=== PATIENT | female | born 1985 | race Caucasian/White ===

== ENCOUNTER 2018-06-19 05:24 | Inpatient (IN) | payer MEDICAID, SELFPAY ==
[2018-06-19] VITALS (20 sets, daily range): BP systolic 88–108; BP diastolic 34–64; PULSE 67–96; RESP 14–18; TEMP 35.3–36.8; O2SAT 96–100; BMI 44.3
[2018-06-19] MEDS: Lactated Ringers 1,000 ML 999 ML IV (06:08)
[2018-06-19 06:27] LABS: Absolute Neutrophil Count 4.8 X10^3/uL (2.0-7.7); Basophil# 0.02 X10^3/uL; Basophil% 0.3 % (0-1); Eosinophil# 0.11 X10^3/uL; Eosinophils% 1.6 % (0-5); Hematocrit 33.9 % (37-47); Hemoglobin 11.2 g/dl (12.0-15.0); Lymphocyte % 24.1 % (19-41); Mean Corpuscular Hgb 29.9 pg (27.0-32.0); Mean Corpuscular Volume 90.4 fL (81-99); Mean Platelet Vol. 10.4 fl (6.2-12.0); Monocyte# 0.43 X10^3/uL; Monocyte% 6.1 % (0-10); Neutrophil # 4.79 X10^3/uL (2.7-7.7); Neutrophil % 67.8 % (47-70); Platelet Count 238 K/mm3 (150-450); RBC Distribution Width CV 13.6 % (11.6-14.6); RBC Distribution Width SD 43.4 fl (35.1-43.9); Red Blood Count 3.75 M/mm3 (4.2-5.4); White Blood Count 7.1 K/mm3 (4.4-11.0)
[2018-06-19 06:31] LABS: POSITIVE COUNT NO; POSITIVE DIFFERENTIAL NO; POSITIVE MORPHOLOGY NO
[2018-06-19] MEDS: Sodium Citrate/Citric Acid 30 ML UDC PO (07:06)
[2018-06-19] MEDS: Cefazolin 2 GM in 0.9% Normal Saline 100 ML IV (07:07)
[2018-06-19] MEDS: Lactated Ringers 1,000 ML 150 ML IV (07:07)
[2018-06-19] MEDS: Oxytocin 30 units/NS 500 ml 30 UNITS/500 ML IV.SOLN 167 UNITS IV (07:47)
--- NOTE | 2018-06-19 08:12 | PCM.OB.CSR ---
Delivery Classification: Scheduled Final THANG: 06/20/18 Final THANG Source: US <20 weeks Gestational age: 39 Weeks and 6 Days Indications for : Repeat Elective Description of Procedure: Assistance: Fazal YOUNG and Lisa Duarte MS3 The patient was taken to the operating room. She was prepped and draped in the dorsal supine position with a leftward tilt. A Pfannenstiel skin incision was made approximately 3 cm above the symphysis pubis and carried through to underlying layer fascia with the scalpel. The incision was made slightly above her previous incision due to erythema and some skin breakdown right under her pannus fold. I made the incision above this erythema in the excoriated skin. The fascia was incised incised in the midline and extended laterally with the Martinez scissors. The fascia was dissected off the rectus muscles with blunt and sharp dissection. The rectus muscles were in the midline and the peritoneum was entered bluntly. The peritoneal incision was stretched and the bladder blade was placed. The uterine incision was made in a low transverse fashion with the scalpel and extended superiorly and inferiorly with blunt dissection. The amniotic membranes were ruptured bluntly and clear amniotic fluid returned. The 's head was brought to the incision in the flexed position and delivered without difficulty. The remainder of the was delivered with gentle traction and fundal pressure in the standard fashion. The mouth and nares were bulb suctioned. The cord was clamped and cut as the was stimulated. Cord clamping was delayed. The infant was handed off to the waiting nursing staff. The placenta was delivered with fundal massage and gentle traction in the standard fashion. The uterus was exteriorized and cleared of all clots and debris. The cervix was dilated with a ring forcep. The uterine incision was closed with #1 Vicryl in a running locked fashion. A second layer of the same suture was used in an imbricating fashion. The incision was examined and was found to be hemostatic. The uterus was placed back into the peritoneal cavity and hemostasis was again confirmed. The rectus muscles were examined and any bleeding was Bovie cauterized. The parietal peritoneum and rectus muscles were closed en bloc with an 0 Vicryl running suture. The surgical teams outer gloves were then changed. The rectus fascia was examined and any bleeding was Bovie cauterized and the rectus fascia was closed with looped #1 PDS suture in a running standard fashion. The subcutaneous tissue was examining and any bleeding was Bovie cauterized. Subcutaneous tissue was closed with 2 rows of 3-0 Vicryl and the skin was closed in a subcuticular fashion by the DESIGNER with me present in the labor and delivery suite. I performed the remainder of the procedure with assistance. All sponge, lap, and needle counts were correct. The patient was taken to her room for recovery in a stable condition. Amniotic Membrane Rupture Type: Artificial Amniotic Fluid Description: Clear Placenta Disposition: [facility] Specimen(s) sent to pathology: none Drain: Obando to straight drain Fluids Replaced: 1200cc Cord Entanglement: None Cord Vessel Description: 3 Vessels Esitmated Blood Loss (ml): 800 Infant Gender: Male (1 minute): 8 (5 minute): 9 Delayed cord clamping: Yes Pre-op Antibiotic Given: Ancef 2 grams IV x1 - Admit VTE Documentation VTE Present on Admission: No VTE Mechan Device Prophylaxis: SCD's VTE Pharm Prophylaxis ordered?: Yes
--- NOTE | 2018-06-19 08:16 | OP.PCM_ITS ---
Delivery Classification: Scheduled Final THANG: 06/20/18 Final THANG Source: US <20 weeks Gestational age: 39 Weeks and 6 Days Indications for : Repeat Elective Description of Procedure: Assistance: Fazal YOUNG and Lisa Duarte MS3 The patient was taken to the operating room. She was prepped and draped in the dorsal supine position with a leftward tilt. A Pfannenstiel skin incision was made approximately 3 cm above the symphysis pubis and carried through to underlying layer fascia with the scalpel. The incision was made slightly above her previous incision due to erythema and some skin breakdown right under her pannus fold. I made the incision above this erythema in the excoriated skin. The fascia was incised incised in the midline and extended laterally with the Jayna torres scissors. The fascia was dissected off the rectus muscles with blunt and sharp dissection. The rectus muscles were in the midline and the peritoneum was entered bluntly. The peritoneal incision was stretched and the bladder blade was placed. The uterine incision was made in a low transverse fashion with the scalpel and extended superiorly and inferiorly with blunt dissection. The amniotic membranes were ruptured bluntly and clear amniotic fluid returned. The infant's head was brought to the incision in the flexed position and delivered without difficulty. The remainder of the was delivered with gentle traction and fundal pressure in the standard fashion. The mouth and nares were bulb suctioned. The cord was clamped and cut as the infant was stimulated. Cord c lamping was delayed. The was handed off to the waiting nursing staff. The placenta was delivered with fundal massage and gentle traction in the standard fashion. The uterus was exteriorized and cleared of all clots and debris. The cervix was dilated with a ring forcep. The uterine incision was closed with #1 Vicryl in a running locked fashion. A second layer of the same suture was used in an imbricating fashion. The incision was examined and was found to be hemostatic. The uterus was placed back into the peritoneal cavity and hemostasis was again confirmed. The rectus muscles were examined and any bleeding was Bovie cauterized. The parietal peritoneum and rectus muscles were closed en bloc with an 0 Vicryl running suture. The surgical teams outer gloves were then changed. The rectus fascia was examined and any bleeding was Bovie cauterized and the rectus fascia was closed with looped #1 PDS suture in a running standard fashion. The subcutaneous tissue was examining and any bleeding was Bovie cauterized. Subcutaneous tissue was closed with 2 rows of 3-0 Vicryl and the skin was closed in a subcuticular fashion by the SOCIAL MEDIA PROJECT MANAGER with me present in the labor and delivery suite. I performed the remainder of the procedure with assistance. All sponge, lap, and needle counts were correct. The patient was taken to her room for recovery in a stable condition. Amniotic Membrane Rupture Type: Artificial Amniotic Fluid Description: Clear Placenta Disposition: [facility] Specimen(s) sent to pathology: none Drain: Obando to straight drain Fluids Replaced: 1200cc Cord Entanglement: None Cord Vessel Description: 3 Vessels Esitmated Blood Loss (ml): 800 Infant Gender: Male (1 minute): 8 (5 minute): 9 Delayed cord clamping: Yes Pre-op Antibiotic Given: Ancef 2 grams IV x1 - Admit VTE Documentation VTE Present on Admission: No VTE Mechan Device Prophylaxis: SCD's VTE Pharm Prophylaxis ordered?: Yes
[2018-06-19] MEDS: Ketorolac 30 MG/ML Syringe IV ×3 (08:24→20:40)
[2018-06-19 10:11] LABS: Bedside Glucose 105 mg/dL (70-110)
[2018-06-19] MEDS: Lactated Ringers 1,000 ML 100 ML IV ×2 (10:11→19:25)
[2018-06-19] MEDS: Ondansetron 4 MG/2 ML Vial IV (10:34)
--- NOTE | 2018-06-19 19:29 | DCINST_ITS ---
Discharge Diet: No Restrictions Discharge Activity: Return to Normal Activity, May Not Drive - for 2 weeks, May not drive while taking narcotic pain medications., May Shower, May Take a Tub Bath - in 7 days. May resume sexual activity in: 4-6 weeks Lifting Restrictions: 20 pounds Additional Activity Instructions:: Nothing in the vagina for 4-6 weeks. You may return to work/school in 6 weeks. Call your doctor if your incision/area has: Continuous Slow Oozing, Sudden Increased Bleeding, Increased Pain/ Swelling, Increased Redness, Foul Smelling Discharge Call your doctor if you observe: Fever of 101 or Higher, Using more than one pad per hour - for 2 hours Suture Line Care: Avoid Pulling/Pushing, Avoid Pinching/Bending Cleanse incision/area with: Keep Dressing Clean & Dry Additional Instructions: If you experience any of the following, contact your healthcare provider. * Bleeding that soaks a pad every hour for 2 hours * Fever 100.4 or higher * Unrelieved incision or abdominal pain * Swelling, redness, discharge or bleeding from your incision or episiotomy site * Your incision begins to separate * Problems urinating (including inability to urinate or burning while urinating). * Visual changes * Severe headache * Flu-like symptoms * Pain or redness in one of both of your breasts * Pain, warmth, tenderness or swelling in your legs, especially the calf area * Frequent nausea and vomiting * Symptoms of depression or anxiety If you experience any of the following, call 911 or go to the nearest Emergency Room. * Chest pain * Problems breathing * Seizure activity * Partial or complete paralysis of a body part, slurred speech, weakness or drooping of the face, or a sudden inability to walk or hold your balance Allergies/Adverse Reactions: Allergies No Known Allergies Allergy (Verified 06/19/18 07:05) Medications to take at Discharge Vits [Prenatabs FA ] 1 tablet PO DAILY 06/13/18 Docusate Sodium [Colace] 100 mg PO BID PRN PRN #60 capsule 06/19/18 Ibuprofen [Motrin] 600 mg PO Q6H PRN #60 tablet 06/19/18 Oxycodone HCl/Acetaminophen [Percocet 5-325] 1 - 2 tablet PO Q8 PRN 7 Days #28 tablet 06/19/18 The following prescriptions were given: Docusate Sodium [Colace] 100 mg PO BID PRN PRN #60 capsule PRN Reason: Constipation Oxycodone HCl/Acetaminophen [Percocet 5-325] 1 - 2 tablet PO Q8 PRN 7 Days #28 tablet PRN Reason: Moderate-Severe pain Ibuprofen [Motrin] 600 mg PO Q6H PRN #60 tablet PRN Reason: Pain Follow-Up: Call to make an appointment with your doctor for an incision check in 1-2 weeks. You will also need a 6 week post- follow up appointment. Test results from this visit will be discussed in further detail at your follow- up appointment, if applicable. Please Follow Up With: Shanice Sellers MD - Call to make an appointment for an incision check in 1-2 [phone] When: You will need a post check in 6 weeks. Primary Care Physician: Care Physician,No Primary [Primary Care Provider] -
[2018-06-19] MEDS: Senna/Docusate Sodium 1 Tablet PO (22:52)
[2018-06-20] VITALS (9 sets, daily range): BP systolic 91–107; BP diastolic 33–53; PULSE 72–84; RESP 15–18; TEMP 36.1–36.6; O2SAT 95–98
[2018-06-20] MEDS: Lactated Ringers 1,000 ML 100 ML IV (01:28)
[2018-06-20] MEDS: Ketorolac 30 MG/ML Syringe IV ×4 (02:17→20:19)
[2018-06-20] MEDS: Enoxaparin 40 MG/0.4 ML Syringe SC (05:40)
[2018-06-20 06:45] LABS: Hematocrit 30.9 % (37-47); Mean Corp Hgb Conc 32.4 g/gl (32-36); Mean Corpuscular Hgb 29.6 pg (27.0-32.0); Mean Corpuscular Volume 91.4 fL (81-99); Mean Platelet Vol. 9.9 fl (6.2-12.0); Platelet Count 216 K/mm3 (150-450); RBC Distribution Width CV 13.9 % (11.6-14.6); RBC Distribution Width SD 45.4 fl (35.1-43.9); Red Blood Count 3.38 M/mm3 (4.2-5.4); White Blood Count 8.2 K/mm3 (4.4-11.0)
[2018-06-20 07:16] LABS: Scan Indicated on CBC? Y/N NO
[2018-06-20] MEDS: 0.9% Saline Lock 10 ML Syringe IV ×3 (08:01→20:20)
[2018-06-20] MEDS: Senna/Docusate Sodium 1 Tablet PO ×2 (08:02→20:19)
--- NOTE | 2018-06-20 12:22 | PCM.PN.OB ---
Subjective: Pain controlled - Physical Exam General: Alert, Oriented x3 Abdomen: Soft, Non Tender, Non-Distended - ff mid &below umb; inc - bandage c/d/i, stable old dried blood Extremities: No Calf Tenderness Vital Signs Temp Pulse Resp BP Pulse Ox 97.9 F 73 16 102/53 L 98 06/20/18 08:00 06/20/18 08:00 06/20/18 08:00 06/20/18 08:00 06/20/18 08:00 Oxygen Delivery Method Room Air Weight: 227 lb 1.218 oz Body Mass Index (BMI) 44.3 Intake and Output for Last 24 Hours 06/18/18 06/19/18 06/20/18 23:59 23:59 23:59 Intake Total 4910 / 4910 1534 / 1534 Output Total 775 / 775 1000 / 1000 Balance 4135 / 4135 534 / 534 Laboratory Tests Past 24 Hrs 06/20/18 06:30 WBC 8.2 RBC 3.38 L Hgb 10.0 L Hct 30.9 L MCV 91.4 MCH 29.6 MCHC 32.4 RDW 13.9 RDW Differential 45.4 H Plt Count 216 MPV 9.9 Medical Necessity - Tobacco Use Smoking Status: Never smoker Assessment/Plan POD#1 Routine care Heme - cbc reviewed ID - AF GI - ADAT
[2018-06-21 02:10] VITALS: BP 102/53; PULSE 75; RESP 18; TEMP 36.4; O2SAT 98
[2018-06-21] MEDS: 0.9% Saline Lock 10 ML Syringe IV (02:57)
[2018-06-21] MEDS: Ketorolac 30 MG/ML Syringe IV (02:57)
[2018-06-21] MEDS: Enoxaparin 40 MG/0.4 ML Syringe SC (06:12)
--- NOTE | 2018-06-21 08:06 | PCM.PN.OB ---
Subjective: Patient sitting up in bed, at this time. Patient reports no issues - desires discharge to home today. Denies issues with ambulation or urination. Patient reports that incisional pain is well controlled. Reports she is bonding well with baby. Objective: Nipples without cracks, blisters or erythema. Baby at breast with strong latch, sucking without difficulty. Abdomen NT x 4 quadrants, FF midline @ 2FB below umbilicus Incisional dressing dry and intact, no exudate noted on bandage +2/4 reflexes in LE, no calf tenderness to palpation, no edema noted Scant rubra lochia - Physical Exam General: Alert, Oriented x3, Cooperative HEENT: Atraumatic, Normocephalic Neck: Supple Lungs: Normal air movement Cardiovascular: Regular rate, No murmurs Abdomen: Soft, Non Tender, Passing Flatus Extremities: No edema, Capillary Refill Less than 3 Seconds Skin: No rashes, No breakdown Musculoskeletal: No Tenderness to Palpation of Joints or Extremities Neurological: Cranial nerves II-XII grossly intact Psych/Mental Status: Normal Affect, Appropriate, Alert and oriented to time, place, person, mood and affect Vital Signs Temp Pulse Resp BP Pulse Ox 97.6 F L 75 18 102/53 L 98 06/21/18 02:10 06/21/18 02:10 06/21/18 02:10 06/21/18 02:10 06/21/18 02:10 Oxygen Delivery Method Room Air Weight: 227 lb 1.218 oz Body Mass Index (BMI) 44.3 Intake and Output for Last 24 Hours 06/19/18 06/20/18 06/21/18 23:59 23:59 23:59 Intake Total 4910 / 4910 1534 / 1534 Output Total 775 / 775 1800 / 1800 Balance 4135 / 4135 -266 / -266 Medical Necessity - Tobacco Use Smoking Status: Never smoker Assessment/Plan 32 y/o s/p rpt LTCS, Normal Course, POD #2 P: 1) Discharge to home pending discharge 2) RTC at [facility] for Incision Check with Dr. Marlo HOFF as scheduled Magalys LOCKWOOD
[2018-06-21] MEDS: Senna/Docusate Sodium 1 Tablet PO (10:41)
--- NOTE | 2018-06-26 17:25 | NURSING ---
follow up call complete, denies needs or questions about discharge. incision wnl and her and baby are doing well. satisfied with care
== END 2018-06-21 12:35 | disposition home or self-care (01) | DRG 540 ==
PROVIDERS: Admitting Provider Obstetrics & Gynecology; Referring Provider Obstetrics & Gynecology; Visit Provider Obstetrics & Gynecology
PROC: 10D00Z1 Extraction of Products of Conception, Low, Open Approach (ICD-10-PCS; CPT 59514; principal; 2018-06-19 07:15)
DX: O34.211 Maternal care for low transverse scar from previous cesarean delivery (principal); Z3A.39 39 weeks gestation of pregnancy; Z37.0 Single live birth
CPT/HCPCS: 82962; 85025; 85027; 86850; 86900; 99218; J7120; A4216; G0378; J2405

== ENCOUNTER 2018-09-28 10:53 | Day surgery (SDC) | payer MEDICAID, SELFPAY ==
--- NOTE | 2018-09-26 17:48 | PCM.HP.BLA ---
History and Physical Date of Admission: 09/28/18 Pre-Op History and Physical- performed 09/21/18 HPI: The patient is a 33 year old female presenting for pre-operative visit. She is scheduled for laparoscopic IUD removal, possible hysteroscopy, Mirena IUD insertion, for malpositioned IUD on 09/28/18. Procedure discussed along with risks, benefits and complications. Other alternatives discussed for management. Consent form signed? Yes. PAST MEDICAL HISTORY Diagnosis Date ? Abnormal glandular Papanicolaou smear of cervix 06/02/2005 Abn. Pap smear (cervix) ? Encounter for insertion or removal of intrauterine contraceptive device 08/30/2008 Mirena, removed 2011 PAST SURGICAL HISTORY Procedure Laterality Date ? DELIVERY ONLY 2005 , low transverse ? DELIVERY ONLY 06/19/2018 RC/S, low transverse ? 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 Disp: Rfl: Xrryydiz-Qb-Hqz-Fe-FA ( VITAMIN) tab Take 1 tablet by mouth. Disp: Rfl: Current Facility-Administered Medications: levonorgestrel 20 mcg/24 hr (5 years) 1 Each intrauterine device (MIRENA) 1 Each INTRAUTERINE As Directed Shanice Sellers 1 Each at 08/14/18 1038 ALLERGIES: Patient has no known allergies. 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 Breast Cancer Mother ? Breast Cancer Maternal Grandmother ? Cancer Maternal Grandmother lung ? Coronary Artery Disease Maternal Grandmother ? Diabetes Maternal Grandmother ? Hypertension Maternal Grandmother ? Stroke Maternal Grandmother ? other (Dementia) Maternal Grandfather REVIEW OF SYMPTOMS: GENERAL: denies fevers or chills ENDOCRINOLOGY: has not been on steroids Cardiology : denies palpitations or chest pain Respiratory: denies SOB or cough Hematology: denies history of prolonged bleeding or easy bruising or VTE Allergy: Denies history of personal or family history of allergy to anesthesia PHYSICAL EXAMINATION: VITALS: Blood pressure 110/62, weight 214 lb (97.1 kg), currently . GENERAL: The patient is well nourished, well hydrated in no acute distress. , The patient is oriented to time, place, and person. NECK: Supple. No lynphadenopathy, normal thyroid, no thyromegaly. LUNGS: Clear to auscultation bilaterally. no wheezes, rhonchi or rales HEART: Regular rate and rhythm, Normal heart sounds and No murmurs or gallops IMPRESSION: malpositioned IUD, desires IUD for contraception PLAN: The risks/benefits/alternatives and personal involved for the planned Laparoscopic IUD removal, possible hysteroscopy, Mirena IUD insertion were reviewed with the patient. Her questions were answered to her satisfaction and she desires to proceed. Consent was signed. I reviewed with her postop instructions and expectations. I have reviewed and updated past medical and surgical history, medications and allergies Shanice Sellers M.D.
[2018-09-28] VITALS (7 sets, daily range): BP systolic 104–127; BP diastolic 64–88; PULSE 70–83; RESP 16–18; TEMP 36.2–36.9; O2SAT 93–100; BMI 41.3
[2018-09-28 11:18] LABS: Mean Corp Hgb Conc 32.6 g/gl (32-36); Mean Corpuscular Hgb 28.8 pg (27.0-32.0); Mean Corpuscular Volume 88.5 fL (81-99); Mean Platelet Vol. 9.9 fl (6.2-12.0); Platelet Count 261 K/mm3 (150-450); RBC Distribution Width CV 13.4 % (11.6-14.6); Red Blood Count 4.86 M/mm3 (4.2-5.4); Scan Indicated on CBC? Y/N NO; White Blood Count 7.4 K/mm3 (4.4-11.0)
[2018-09-28] MEDS: Celecoxib 200 MG Capsule PO (11:20)
[2018-09-28] MEDS: Acetaminophen 500 MG Tablet 1000 MG PO (11:20)
[2018-09-28 11:47] LABS: Internal QC Validated? YES +Cl - CLEAR BKGD; Pregnancy, Urine Negative Negative
--- NOTE | 2018-09-28 15:10 | PCM.DC.TUB ---
Discharge Diet: No Restrictions - Increase fluid intake for the next 48 hours. Discharge Activity: Return to Normal Activity, May Drive - when you are no longer taking pain/narcotic meds., May Shower, May Take a Tub Bath - in 7 days Additional Activity Instructions:: Ambulate often the next week after surgery. Nothing in the vagina for 5 days. Call your doctor if your incision/area has: Continuous Slow Oozing, Sudden Increased Bleeding, Increased Pain/ Swelling, Increased Redness, Foul Smelling Discharge Call your doctor if you observe: Fever of 101 or Higher Cleanse incision/area with: Soap & Water - they have skin glue, it can get wet. Leave the glue on 10-14 days Allergies/Adverse Reactions: Allergies No Known Allergies Allergy (Verified 09/28/18 11:14) Medications to take at Discharge Hydrocodone/Acetaminophen [Harrison 5-325 Tablet] 1 - 2 each PO Q8 PRN 3 Days #10 tablet 09/28/18 Ibuprofen [Motrin] 600 mg PO Q6H PRN #60 tablet 09/28/18 The following prescriptions were given: Hydrocodone/Acetaminophen [Harrison 5-325 Tablet] 1 - 2 each PO Q8 PRN 3 Days #10 tablet PRN Reason: Severe Pain (6-10/10) Ibuprofen [Motrin] 600 mg PO Q6H PRN #60 tablet PRN Reason: Pain Orders to be completed after discharge: ,Urine Time Frame: 09/28/18, Location: Laboratory Primary Care Physician: Care Physician,No Primary [Primary Care Provider] - Test Results: Test results from this visit will be discussed in further detail at your follow-up appointment, if applicable. Please Follow Up With: Shanice Sellers MD - [phone] When: 4-5 weeks or as needed
[2018-09-28] MEDS: Bupivacaine Mpf 0.5% 30 ML VIAL (15:15)
--- NOTE | 2018-09-28 15:41 | PCM.OPRPT ---
Report of Operation Date of Procedure: 09/28/18 Pre-Operative Diagnosis: malposition of mirena IUD, IUD insertion Post-Operative Diagnosis: same Surgery/Procedure Performed:: Laparoscopic removal of a Mirena IUD. Insertion of Mirena IUD under laparoscopic visualization Description of Surgical Findings:: Omental adhesion approximately 4 x 4 cm under the umbilicus, boggy uterus, normal tubes and ovaries, mirena sitting unattached in the posterior cul-de-sac station air traffic control specialist: None Type of Anesthesia:: General Special Medications: none Specimen's removed: None Drains: None Estimated Blood Loss (mL): 10 Fluids Replaced: 300cc lr Description of Procedure: The patient was taken to the operating room where she was prepped and draped in the dorsolithotomy position. A weighted speculum was placed in the vagina and the anterior lip of the cervix was grasped with a tenaculum. The Rehana uterine manipulator was placed and the remainder of the instruments were removed from the vagina. Attention was turned to the abdomen. All port sites were infiltrated with 0.5% Marcaine before skin incisions were made. A 5 mm intraumbilical incision was made. The anterior abdominal wall was tented up with 2 towel clamps while a 5 mm blade less trocar and sleeve were inserted using the opti-vision trocar.. Intraperitoneal placement was confirmed with the laparoscope. The pneumoperitoneum was created and the underlying abdominal contents were intact. The patient was placed in Trendelenburg. A left lower quadrant ports was placed under direct visualization lateral to the inferior epigastric vessels. The bowel was swept away and the above findings were noted. Mirena IUD was found sitting in the posterior cul-de-sac. It was grasped by the strings and brought out through 1 of the trocars. The uterus sounded to 9 cm, it was anteverted. While the scrub outpatient physical therapist assistant was holding the laparoscope, I placed the Mirena IUD in the usual sterile fashion. Insertion was without difficulty. The strings were trimmed to 2 cm at the cervix. The uterus was examined after the IUD insertion and was found to be intact. Because of the umbilical adhesions and the fact that suprapubic trocar seem to pass directly through them, a suprapubic 5 mm port was placed under direct visualization through her scar. I was able to visualize the omental adhesion and ensure there is no bowel trapped within it. There was not. The left lateral and umbilical trocars removed under direct visualization and the sites were hemostatic. The pneumoperitoneum was released and the suprapubic port was removed. The skin incisions were closed with Monocryl suture in a subcuticular fashion and skin glue. The vaginal instruments were removed and the vaginal sweep was completed by me. The procedure was performed by me with assistance other than as dictated above. All sponge and needle counts were correct and the patient was taken to the recovery room in stable condition. Grafts/Implants Used: Mirena intrauterine system - Complications None - Admit VTE Documentation VTE Present on Admission: No VTE Mechan Device Prophylaxis: SCD's VTE Pharm Prophylaxis ordered?: No
--- NOTE | 2018-09-28 15:47 | OP.PCM_ITS ---
Report of Operation Date of Procedure: 09/28/18 Pre-Operative Diagnosis: malposition of mirena IUD, IUD insertion Post-Operative Diagnosis: same Surgery/Procedure Performed:: Laparoscopic removal of a Mirena IUD. Insertion of Mirena IUD under laparoscopic visualization Description of Surgical Findings:: Omental adhesion approximately 4 x 4 cm under the umbilicus, boggy uterus, normal tubes and ovaries, mirena sitting unattached in the posterior cul-de-sac biological science technician: None Type of Anesthesia:: General Special Medications: none Specimen's removed: None Drains: None Estimated Blood Loss (mL): 10 Fluids Replaced: 300cc lr Description of Procedure: The patient was taken to the operating room where she was prepped and draped in the dorsolithotomy position. A weighted speculum was placed in the vagina and the anterior lip of the cervix was grasped with a tenaculum. The Rehana uterine manipulator was placed and the remainder of the instruments were removed from the vagina. Attention was turned to the abdomen. All port sites were infiltrated with 0.5% Marcaine before skin incisions were made. A 5 mm intraumbilical incision was made. The anterior abdominal wall was tented up with 2 towel clamps while a 5 mm blade less trocar and sleeve were inserted using the opti-vision trocar.. Intraperitoneal placement was confirmed with the laparoscope. The pneumoperitoneum was created and the underlying abdominal contents were intact. The patient was placed in Trendelenburg. A left lower quadrant ports was placed under direct visualization lateral to the inferior epigastric vessels. The bowel was swept away and the above findings were noted. Mirena IUD was found sitting in the posterior cul-de-sac. It was grasped by the strings and brought out through 1 of the trocars. The uterus sounded to 9 cm, it was anteverted. While the scrub floor covering printer assistant was holding the laparoscope, I placed the Mirena IUD in the usual sterile fashion. Insertion was without difficulty. The strings were trimmed to 2 cm at the cervix. The uterus was examined after the IUD insertion and was found to be intact. Because of the umbilical adhesions and the fact that suprapubic trocar seem to pass directly through them, a suprapubic 5 mm port was placed under direct visualization through her scar. I was able to visualize the omental adhesion and ensure there is no bowel trapped within it. There was not. The left lateral and umbilical trocars removed under direct visualization and the sites were hemostatic. The pneumoperitoneum was released and the suprapubic port was removed. The skin incisions were closed with Monocryl suture in a subcuticular fashion and skin glue. The vaginal instruments were removed and the vaginal sweep was completed by me. The procedure was performed by me with assistance other than as dictated above. All sponge and needle counts were correct and the patient was taken to the recovery room in stable condition. Grafts/Implants Used: Mirena intrauterine system - Complications None - Admit VTE Documentation VTE Present on Admission: No VTE Mechan Device Prophylaxis: SCD's VTE Pharm Prophylaxis ordered?: No
== END 2018-09-28 17:42 | disposition home or self-care (01) ==
LOC: SDC 10:54 → AC 10:56
PROVIDERS: Referring Provider Obstetrics & Gynecology; Visit Provider Obstetrics & Gynecology
PROC: (CPT 49320; principal; 2018-09-28 12:20)
DX: Z30.433 Encounter for removal and reinsertion of intrauterine contraceptive device (principal)
CPT/HCPCS: 58300; 58301; 36415; 81025; 85027; J7120; J2405

== ENCOUNTER 2023-03-11 21:39 | Emergency (ER) | payer OTHER, SELFPAY ==
[2023-03-11 21:41] VITALS: BP 166/89; PULSE 94; RESP 18; TEMP 36.6; O2SAT 97; BMI 42.4
--- NOTE | 2023-03-11 22:13 | EDS_ITS ---
HPI History of Present Illness Chief Complaint: Abscess Informant: patient and spouse/S.O. Narrative Narrative: Patient is a 37-year-old female with no significant past medical history who is approximately 12 weeks . She states in the last 48 hours she has noticed a lesion along her left lower abdomen. She states it is red swollen and painful. She denies any trauma or new exposures and states that there were no other lesions on her body. She reports area is painful and not pruritic. She denies any discharge from the site. She denies any fevers or chills but states she has concern for infection based on the lesion and therefore comes in for ev aluation. [facility] Medical History Complication of section wound Home Medications ibuprofen 600 mg tablet 600 mg PO Q6H PRN Pain ##60 09/28/18 [Rx Last Taken Unknown] amoxicillin 875 mg-potassium clavulanate 125 mg tablet 1 tab PO BID 10 days #20 tabs 03/11/23 [Rx Last Taken Unknown] Allergy/AdvReac Type Severity Reaction Status Date / Time No Known Allergies Allergy Verified 03/11/23 21:46 Social History Smoking Status: Never smoker ROS [facility] ED Constitutional Constitutional ED: Denies chills or fever(s) ENT ENT ED: Denies sore throat Cardiovascular Cardiovascular: Denies chest pain Respiratory/Chest Respiratory/Chest: Denies cough or dyspnea Gastrointestinal Gastrointestinal: Denies abdominal pain, diarrhea, nausea or vomiting Genitourinary Genitourinary ED: Reports other Details: No vaginal bleeding or discharge ; Denies dysuria or hematuria Musculoskeletal Musculoskeletal: Denies myalgias Integumentary Reports abscess; Denies rash Neurologic Neurologic: Denies headache(s) Hematologic/Lymphatic Hematologic/Lymphatic: Denies easy bleeding or easy bruising EXAM Physical Exam Const Vital Signs: 03/11/23 21:41 Temperature 97.9 F Temperature Source Temporal Pulse Rate 94 Respiratory Rate 18 Blood Pressure 166/89 H Blood Pressure Mean 114 Pulse Ox 97 Oxygen Delivery Method Room Air Positive well nourished, well developed and obese General Appearance ED: well developed Nutritional Appearance: obese HEENT Reports moist mucous membranes HEENT Narrative: No tongue or lip swelling. No oral lesions. No airway edema or compromise. Eyes PERRL and EOMs intact bilaterally General Eye ED: Negative for scleral icterus Neck supple Resp normal respiratory effort and clear to auscultation bilaterally Cardio regular rate and regular rhythm GI normal to inspection, nondistended, normoactive bowel sounds, non-tender and non-distended Auscultation: normoactive bowel sounds Palpation: soft Extremity normal to inspection Neuro oriented x3, CN's II-XII intact bilaterally and no sensory deficits noted Sensorium / Orientation: alert Motor Exam: strength 5/5 throughout Psych mental status grossly normal Skin Skin Narrative: Along the left lower section of the abdomen there is a one by one area of erythema and mild induration that is tender to palpation. Surrounding this there is a 2 x 2 centimeter area of erythema and warmth consistent with surrounding cellulitis. There is no active discharge or lymphangitic streaking. There are no other lesions noted on the body. No lesions across the palms or s oles. MDM MDM MDM Narrative Medical decision making narrative: Patient presented to the ER afebrile. She had a localized area of erythema and warmth along the left lower abdomen. She denied any known new exposures and states that there are no other lesions along the body. Moreover the area is painful and not pruritic. Differential diagnosis is abscess versus cellulitis versus insect bite versus allergic reaction. At this time as the area is painful and not pruritic there are no other lesions associated with the area and patient denies any new exposures I feel this is most likely infectious and not an inflammatory/allergic component. However at this time as the area is only slightly indurated I do not feel that it would benefit from incision and drainage. Patient was instructed to provide warm compresses to see if the area will begin draining spontaneously and to be placed on antibiotics secondary to the development of the infectious process. However as she is afebrile with no signs of systemic infection there is no need for blood work which is otherwise safe for discharge. History & Record Review Discussion w/independent historian: Patient and Significant other Discharge Plan Triage Chief Complaint: Abscess ED Provider: Bob Jane Dx/Rx/DC Orders Clinical Impression: Abdominal wall cellulitis, Abscess Instructions: Cellulitis Dc, ED Abscess Antibiotic Treatment Only Prescriptions: New amoxicillin-pot clavulanate 875-125 mg tablet 1 tab PO BID 10 Days Qty: 20 0RF No Action ibuprofen 600 MG tablet 600 mg PO Q6H PRN (Reason: Pain) Qty: 60 1RF Primary Care Provider: Care Physician,No Primary Referrals: Alberto Lobo MD [Med Staff - Property Analyst] - Care Physician,No Primary [Primary Care Provider] - Activity Restrictions/Additional Instructions: Please take Tylenol for pain and use the antibiotic as directed to help resolve the infection. Use a warm compress on the area multiple times a day to see if this will help stimulate drainage. If you develop a fever over 100.4 or have progression of the redness despite the antibiotics please return the hospital for repeat evaluation Disposition Disposition: Home, Self Care
[2023-03-11] MEDS: Amox/Clavulanate 875 MG Tablet PO (22:26)
== END 2023-03-11 22:27 | disposition home or self-care (01) ==
PROVIDERS: Emergency Provider Emergency Medicine; Visit Provider Emergency Medicine
DX: O99.711 Diseases of the skin and subcutaneous tissue complicating pregnancy, first trimester (principal); L03.311 Cellulitis of abdominal wall; L02.211 Cutaneous abscess of abdominal wall; O99.211 Obesity complicating pregnancy, first trimester; Z3A.12 12 weeks gestation of pregnancy
CPT/HCPCS: 99283

== ENCOUNTER 2023-03-29 21:51 | Emergency (ER) | payer OTHER, SELFPAY ==
[2023-03-29 21:53] VITALS: BP 128/59; PULSE 94; RESP 16; TEMP 36.3; O2SAT 100; BMI 43.2
--- NOTE | 2023-03-29 22:23 | US_ITS ---
EXAM: US ABDOMEN LIMITED, RIGHT UPPER QUADRANT CLINICAL INDICATION: abd pain TECHNIQUE: Real-time ultrasound of the right upper quadrant with image documentation. COMPARISON: No relevant prior studies available. FINDINGS: LIVER: Unremarkable. There is normal echotexture. No focal hepatic lesion. No intrahepatic biliary ductal dilation. GALLBLADDER: Multiple shadowing stones in the gallbladder. No gallbladder wall thickening is demonstrated. No pericholecystic fluid. Negative sonographic Subramanian''s sign. COMMON BILE DUCT: 6 mm. The proximal common bile duct is within normal limits for the patient''s age. PANCREAS: Unremarkable as visualized. No focal abnormality is demonstrated in the pancreas. No pancreatic ductal dilatation. RIGHT KIDNEY: 12.4 cm. There is no hydronephrosis. No shadowing calculus. No focal lesion or perinephric collection is demonstrated. US/Gallbladder IMPRESSION: Cholelithiasis but no sonographic evidence of acute cholecystitis. Electronically Signed: Mamadou Bowman MD at 23:39 EDT ,
--- NOTE | 2023-03-29 22:41 | ED.VIS.FEGU ---
HPI HPI - Female History of Present Illness Chief Complaint: Vag Bld, Preg Informant: patient Narrative Narrative: Patient is a 37-year-old female who is a G3, P2 approximately 16 weeks . She states that this morning after wiping she noticed slight amount of pink blood-tinged fluid from the vagina. She states that this did not continue throughout the day so this did not concern her. However roughly 3 hours prior to arrival she developed pain in the midepigastric region that she describes as being punched. She states there is no associated nausea vomiting diarrhea or dysuria with it. She denies any radiation of the pain. However it has not resolved over the past 3 hours and secondary to this she comes in for evaluation. [facility] Medical History Complication of section wound Home Medications aspirin 81 mg capsule 81 mg PO DAILY 03/29/23 [History Last Taken Unknown] vitamins no.144-folic acid 400 mcg chewable tablet () 1 tab PO DAILY 03/29/23 [History Last Taken Unknown] Allergy/AdvReac Type Severity Reaction Status Date / Time No Known Allergies Allergy Verified 03/11/23 21:46 Social History Smoking Status: Never smoker ROS ROS ED Constitutional Constitutional ED: Denies chills or fever(s) Eyes Eyes: Denies change in vision ENT ENT ED: Denies sore throat Cardiovascular Cardiovascular: Denies chest pain Respiratory/Chest Respiratory/Chest: Denies cough or dyspnea Gastrointestinal Gastrointestinal: Reports abdominal pain; Denies diarrhea, nausea or vomiting Genitourinary Genitourinary ED: Denies dysuria Musculoskeletal Musculoskeletal: Denies myalgias Integumentary Denies rash Neurologic Neurologic: Denies headache(s) Hematologic/Lymphatic Hematologic/Lymphatic: Denies easy bleeding or easy bruising EXAM Physical Exam Const Vital Signs: 03/29/23 21:53 Temperature 97.4 F L Temperature Source Temporal Pulse Rate 94 Respiratory Rate 16 Blood Pressure 128/59 H Blood Pressure Mean 82 Pulse Ox 100 Positive well nourished, well developed and obese General Appearance ED: well developed Nutritional Appearance: obese HEENT Reports moist mucous membranes HEENT Narrative: No signs of infection in the posterior pharynx Eyes PERRL and EOMs intact bilaterally General Eye ED: Negative for scleral icterus Neck supple Neck Narrative: No nuchal rigidity or meningeal sign Resp normal respiratory effort and clear to auscultation bilaterally Cardio regular rate and regular rhythm Rate: other Other Details: Radial pulses are equal and symmetric GI non-distended GI Narrative: Abdomen is gravid with fundus consistent with reported gestational age. There is pain on palpation in the midepigastric region as well as the right upper quadrant. Negative Subramanian sign. Negative heel strike. No rigidity or guarding noted. No pulsatile mass. Auscultation: hyperactive bowel sounds Palpation: soft Back/Spine no CVA tenderness Extremity normal to inspection Neuro oriented x3, CN's II-XII intact bilaterally and no sensory deficits noted Sensorium / Orientation: alert Motor Exam: strength 5/5 throughout Psych mental status grossly normal Skin no rashes or lesions noted General Skin Exam: Negative for jaundice MDM MDM MDM Narrative Medical decision making narrative: Patient presented to the ER with stable vitals and a soft nonsurgical abdomen. The location of her pain is most consistent or concerning for pancreatitis versus gastritis versus biliary colic. Secondary to this basic labs were obtained. As she is also 16-week I did elect to perform a right upper quadrant ultrasound as well as obstetrics ultrasound. The obstetric ultrasound showed a normal IUP with normal heart rate of 176 beats and no clinically significant changes. The right upper quadrant ultrasound confirmed a normal pancreas without kidney stones but there were multiple gallstones. However there are no signs of acute cholecystitis. At this time the patient's liver enzymes are normal she does not have a white count or fever and therefore I do not feel there is need for emergent surgical consultation regarding her cholelithiasis but it can correlate with her pain. Also patient's blood type is O positive and therefore she does not need any type of RhoGAM regarding her small amount of bleeding occurred earlier today. Therefore at this time with a persistently soft nonsurgical abdomen no signs of derangement to the fetus and no signs of infection regarding the gallbladder she can be discharged home and follow-up on an outpatient basis History & Record Review Discussion w/independent historian: Patient and Significant other Lab Data Attestation: I reviewed the patient's lab results. Labs: Laboratory Results - last 24 hr 03/29/23 22:35 WBC 7.3 RBC 3.84 L Hgb 11.7 L Hct 34.9 L MCV 90.9 MCH 30.5 MCHC 33.5 RDW Std Deviation 41.0 RDW Coeff of Dmitry 12.4 Plt Count 221 MPV 10.2 Immature Gran % (Auto) 0.400 Neut % (Auto) 69.8 Lymph % (Auto) 20.8 [place] % (Auto) 6.7 Eos % (Auto) 1.9 Baso % (Auto) 0.4 Absolute Neuts (auto) 5.1 Absolute Lymphs (auto) 1.52 Nucleated RBC % 0 Sodium 139 Potassium 3.7 Chloride 107 Carbon Dioxide 26.0 Anion Gap 6 BUN 10 Creatinine 0.62 Estim Creat Clear Calc 89.24 Est GFR (MDRD) Af Amer 139 Est GFR (MDRD) Non-Af 115 BUN/Creatinine Ratio 16.1 Glucose 99 Calcium 8.5 Total Bilirubin 0.50 Direct Bilirubin 0.11 AST 10 L ALT 20 Alkaline Phosphatase 60 Total Protein 6.6 Albumin 2.8 L Globulin 3.8 Lipase 37 Radiography Diagnostic Testing: Clinical Impression(s) from Imaging Studies Gallbladder Ultrasound 03/29/23 22:23 IMPRESSION: Cholelithiasis but no sonographic evidence of acute cholecystitis. Electronically Signed: Mamadou Bowman MD at 23:39 EDT Reading Location ID and State: [address] [place] [address] Tel , Service support , Obstetrics Ultrasound 03/29/23 22:50 IMPRESSION: Single live intrauterine measuring 15 weeks 4 days with no acute abnormality identified. Electronically Signed: Mamadou Bowman MD at 23:44 EDT Reading Location ID and State: [facility] / [place] Tel , Service support , Discharge Plan Triage Chief Complaint: Vag Bld, Preg ED Provider: Bob Jane Dx/Rx/DC Orders Clinical Impression: Abdominal pain during in second trimester, Cholelithiasis Instructions: ED Gallstones with Biliary Colic Prescriptions: No Action aspirin 81 mg capsule 81 mg PO DAILY 400 mcg tablet,chewable 1 tab PO DAILY Primary Care Provider: Care Physician,No Primary Referrals: Care Physician,No Primary [Primary Care Provider] - Activity Restrictions/Additional Instructions: Please follow-up with your IRON ASSORTER as directed. Please eat a diet that is low in greasy/fatty foods to help reduce any spasm of your gallbladder and return to the ER should you have any further concerns. Disposition Disposition: Home, Self Care
--- NOTE | 2023-03-29 22:50 | US_ITS ---
EXAM: US , LIMITED CLINICAL INDICATION: UPPER abdominal pain TECHNIQUE: Real-time limited ultrasound of the maternal uterus with image documentation. COMPARISON: No relevant prior studies available. FINDINGS: FETUS: Single live intrauterine . GESTATIONAL AGE: Gestational age by ultrasound: 15 weeks 4 days, THANG 09/16/2023. EFW: Estimated weight: 127 g. BPD: 3.2 cm, 13 weeks 6 days. HC: 12 cm, 16 weeks 0 days. AC: 9.8 cm, 15 weeks 6 days. FL: 1.7 cm, 15 weeks 1 day. POSITION: Variable presentation during the exam. HEART RATE: heart rate: 176 bpm. PLACENTA: Placenta is anterior with no abnormality identified. AMNIOTIC FLUID: The amount of amniotic fluid is within normal limits for the gestational age. CERVIX: Cervix measures 3.1 cm in length. US/OB Limited With Biometrics IMPRESSION: Single live intrauterine measuring 15 weeks 4 days with no acute abnormality identified. Electronically Signed: Mamadou Bowman MD at 23:44 EDT ,
[2023-03-29 22:59] LABS: AST(SGOT) 10 U/L (15-37); Alanine Aminotransfer ALT/SGPT 20 U/L (13-56); Albumin, Serum 2.8 g/dL (3.2-5.0); Alkaline Phosphatase 60 U/L (45-117); Anion Gap 6 (5-15); BUN 10 mg/dL (7-18); BUN/Creat Ratio 16.1 RATIO (10-20); Bilirubin, Direct 0.11 mg/dL (0.00-0.30); Calcium,Total 8.5 mg/dL (8.5-10.1); Chloride 107 mmol/L (98-107); Creatinine, Serum 0.62 mg/dL (0.55-1.02); EST Glomerular Filtration Rate 115 mL/min (>60); Est Glom Filt Rate - Afr Amer 139 mL/min (>60); Estimated Creatinine Clearance 89.24 ml/min; Globulin 3.8 g/dL (2.2-4.2); Glucose 99 mg/dL (74-106); Lipase 37 U/L (13-75); Potassium 3.7 mmol/L (3.5-5.1); Protein, Total 6.6 g/dL (6.4-8.2); Sodium Level 139 mmol/L (136-145)
[2023-03-29 23:07] LABS: Absolute Lymphocyte Count 1.52 X10^3/uL (0.83-4.51); Absolute Neutrophil Count 5.1 X10^3/uL (2.0-7.7); Basophil# 0.03 X10^3/uL; Basophil% 0.4 % (0-1); Eosinophil# 0.14 X10^3/uL; Eosinophils% 1.9 % (0-5); Hematocrit 34.9 % (37-47); Hemoglobin 11.7 g/dL (12.0-15.0); Lymphocyte # 1.52 X10^3/ul (0.83-4.51); Lymphocyte % 20.8 % (19-41); Mean Corp Hgb Conc 33.5 g/dL (32-36); Mean Corpuscular Hgb 30.5 pg (27.0-32.0); Mean Corpuscular Volume 90.9 fL (81-99); Mean Platelet Vol. 10.2 fl (6.2-12.0); Monocyte# 0.49 X10^3/uL; Monocyte% 6.7 % (0-10); NRBC Flagged by Analyzer 0 % (0-5); Neutrophil % 69.8 % (47-70); Platelet Count 221 K/mm3 (150-450); RBC Distribution Width CV 12.4 % (11.6-14.6); Red Blood Count 3.84 M/mm3 (4.2-5.4); White Blood Count 7.3 K/mm3 (4.4-11.0)
[2023-03-30 00:10] VITALS: BP 121/76; PULSE 98; RESP 16; O2SAT 98
== END 2023-03-30 00:10 | disposition home or self-care (01) ==
PROVIDERS: Emergency Provider Emergency Medicine; Visit Provider Emergency Medicine
DX: O99.612 Diseases of the digestive system complicating pregnancy, second trimester (principal); K80.20 Calculus of gallbladder without cholecystitis without obstruction; O99.212 Obesity complicating pregnancy, second trimester; O09.522 Supervision of elderly multigravida, second trimester; Z3A.15 15 weeks gestation of pregnancy
CPT/HCPCS: 76705; 76816; 80048; 80076; 83690; 85025; 99282; A4216

== ENCOUNTER 2023-09-04 22:53 | Outpatient (CLI) | payer OTHER, BC, SELFPAY ==
--- OUTSIDE RECORDS SUMMARY | 2023-09-04 23:09 | XMS RPT_ITS | CCD ---
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 Name Role Phone Unavailable Primary Care Provider Unavailabl e GE PAGE L Attending Unavailable GE, PAGE L Attending Unavailable GE, PAGE L Referring Unavailable GE, PAGE L Attending Unavailable GE, PAGE L Referring Unavailable GE, PAGE L Attending Unavailable GE, PAGE L Referring Unavailable AUGUSTA WAYNE Attending Unavailable GE, PAGE L Attending Unavailable GE, PAGE L Attending Unavailable GE, PAGE L Referring Unavailable GE, PAGE L Referring Unavailable GE, PAGE L Referring Unavailable GE, PAGE L Attending Unavailable GE, PAGE L Attending Unavailable GE, PAGE L Referring Unavailable GE, PAGE L Attending Unavailable GE, PAGE L Attending Unavailable GE, PAGE L Attending Unavailable GE, PAGE L Attending Unavailable GE, PAGE L Referring Unavailable GE, PAGE L Attending Unavailable GE, PAGE L Referring Unavailable Medications Current Medications Medication Drug Class(es) Dates Sig (Normalized) Sig (Original) mometasone furoate 1 mg/ml topical cream (1 source) Corticosteroid Start: 03-21-2023 End: 04-20-2023 mometasone (ELOCON) 0.1 % cream Apply to affected area twice daily. 15 g 0 03/21/2023 04/20/2023 Active Completed/Discontinued Medications Medication Drug Class(es) Dates Sig (Normalized) Sig (Original) aspirin 81 mg delayed release oral tablet (7 sources) Platelet Aggregation Inhibitor, Nonsteroidal Anti-inflammatory Drug Start: 02-18-2023 take 2 tablets by mouth once daily aspirin, enteric coated (ECOTRIN LOW STRENGTH) 81 mg EC tablet Indications: AMA (advanced maternal age) multigravida 35+, first trimester , 10 weeks gestation of , Supervision of other high risk pregnancies, first trimester , Maternal care due to low transverse uterine scar from previous delivery , Maternal obesity syndrome in first trimester , BMI 40.0-44.9, adult (HCC) Take 2 tablets by mouth once daily. 60 tablet 5 02/18/2023 Active Problems Active Problems Problem Classification Problem Date Documented Da te Episodic/Chronic Allergic reactions (1 source) Allergic contact dermatitis; Translations: [Allergic contact dermatitis, unspecified cause] 03-21-2023 Episodic Immunizations and screening for infectious disease (2 sources) Vaccination needed; Translations: [Encounter for immunization] Onset: 06-21-2023 06-21-2023 Episodic Menstrual disorders (1 source) Missed period; Translations: [Irregular menstruation, unspecified] Chronic Other complications of (9 sources) Maternal obesity complicating , childbirth and the puerperium, antepartum; Translations: [Obesity complicating , unspecified trimester] Onset: 11-24-2017 02-17-2023 Chronic Other complications of (1 source) Obesity complicating , third trimester; Translations: [Maternal obesity syndrome, antepartum, third trimester] Onset: 08-18-2023 Chronic Other complications of (1 source) Obesity complicating , first trimester; Translations: [Maternal obesity syndrome in first trimester] Onset: 02-18-2023 Chronic Other complications of (15 sources) Multigravida of advanced maternal age; Translations: [Supervision of elderly multigravida, unspecified trimester] Onset: 02-17-2023 02-17-2023 Episodic Other complications of (10 sources) High risk ; Translations: [Supervision of other high risk pregnancies, first trimester] Onset: 11-24-2017 03-21-2023 Episodic Other complications of (1 source) Supervision of other high risk pregnancies, third trimester; Translations: [Supervision of other high risk pregnancies, third trimester] Onset: 08-18-2023 Episodic Other complications of (1 source) Supervision of elderly multigravida, third trimester; Translations: [AMA (advanced maternal age) multigravida 35+, third trimester] Onset: 08-18-2023 Episodic Other nutritional; endocrine; and metabolic disorders (1 source) Body mass index 40+ - severely obese; Translations: [Body mass index (BMI) 40.0-44.9, adult] 04-26-2023 Chronic Other nutritional; endocrine; and metabolic disorders (1 source) Body mass index (BMI) 40.0-44.9, adult; Translations: [BMI 40.0-44.9, adult ([facility])] Onset: 02-18-2023 Chronic Other screening for suspected conditions (not mental disorders or infectious disease) (1 source) Patient encounter status; Translations: [Encounter for other specified screening] 04-26-2023 Episodic Residual codes; unclassified (1 source) Gestation period, 14 weeks; Translations: [14 weeks gestation of ] 03-21-2023 Episodic Residual codes; unclassified (2 sources) Gestation period, 19 weeks; Translations: [19 weeks gestation of ] 04-26-2023 Episodic Residual codes; unclassified (1 source) Gestation period, 23 weeks; Translations: [23 weeks gestation of ] 05-24-2023 Episodic Residual codes; unclassified (1 source) Gestation period, 27 weeks; Translations: [27 weeks gestation of ] 06-21-2023 Episodic Residual codes; unclassified (1 source) Gestation period, 32 weeks; Translations: [32 weeks gestation of ] 07-21-2023 Episodic Residual codes; unclassified (1 source) 34 weeks gestation of ; Translations: [34 weeks gestation of ] Onset: 08-12-2023 Episodic Residual codes; unclassified (1 source) 23 weeks gestation of ; Translations: [23 weeks gestation of ] Onset: 06-21-2023 Episodic Residual codes; unclassified (1 source) 27 weeks gestation of ; Translations: [27 weeks gestation of ] Onset: 06-21-2023 Episodic Past or Other Problems Problem Classification Problem Date Documented Da te Episodic/Chronic Other complications of (1 source) Supervision of elderly multigravida, second trimester; Translations: [AMA (advanced maternal age) multigravida 35+, second trimester] Onset: 04-26-2023 Episodic Other complications of (1 source) Supervision of elderly multigravida, first trimester; Translations: [AMA (advanced maternal age) multigravida 35+, first trimester] Onset: 02-18-2023 Episodic Other complications of (1 source) Supervision of other high risk pregnancies, first trimester; Translations: [Supervision of other high risk pregnancies, first trimester] Onset: 02-18-2023 Episodic Other and delivery including normal (3 sources) with uncertain dates; Translations: [Encounter for supervision of normal , unspecified, first trimester] Onset: 02-09-2023 Episodic Previous (4 sources) ; Translations: [Maternal care for unspecified type scar from previous delivery] Onset: 11-24-2017 02-17-2023 Episodic Residual codes; unclassified (1 source) 14 weeks gestation of ; Translations: [14 weeks gestation of ] Onset: 04-26-2023 Episodic Residual codes; unclassified (1 source) 19 weeks gestation of ; Translations: [19 weeks gestation of ] Onset: 04-26-2023 Episodic Residual codes; unclassified (1 source) 10 weeks gestation of ; Translations: [10 weeks gestation of ] Onset: 02-18-2023 Episodic NEGATED: Highlighted row has been ruled out!Unclassified (1 source) No known active problems 08-14-2018 Results Test Name Value Interpretation Reference Range Facil ity Vital Signs Date Time Vital Sign Value Performing Clinician Faci lity 07-21-2023 09:49-0500 Body weight 101.15 kg Page Carolina MD Work Phone: [facility] 07-21-2023 09:49-0500 Diastolic blood pressure 74 mm[Hg] Page Carolina MD Work Phone: [facility] 07-21-2023 09:49-0500 Systolic blood pressure 114 mm[Hg] Page Carolina MD Work Phone: [facility] 06-21-2023 08:20-0500 Body weight 102.06 kg Page Carolina MD Work Phone: [facility] 06-21-2023 08:20-0500 Diastolic blood pressure 72 mm[Hg] Page Carolina MD Work Phone: [facility] 06-21-2023 08:20-0500 Systolic blood pressure 110 mm[Hg] Page Carolina MD Work Phone: [facility] 05-24-2023 08:18-0400 Body weight 100.7 kg Page Carolina MD Work Phone: [facility] 05-24-2023 08:18-0400 Diastolic blood pressure 78 mm[Hg] Page Carolina MD Work Phone: [facility] 05-24-2023 08:18-0400 Systolic blood pressure 116 mm[Hg] Page Carolina MD Work Phone: [facility] 04-26-2023 10:51-0400 Body weight 97.98 kg Page Carolina MD Work Phone: [facility] 04-26-2023 10:51-0400 Diastolic blood pressure 74 mm[Hg] Page Carolina MD Work Phone: [facility] 04-26-2023 10:51-0400 Systolic blood pressure 108 mm[Hg] Page Carolina MD Work Phone: [facility] 03-21-2023 10:03-0400 Body weight 97.52 kg Page Carolina MD Work Phone: [facility] 03-21-2023 10:03-0400 Diastolic blood pressure 68 mm[Hg] Page Carolina MD Work Phone: [facility] 03-21-2023 10:03-0400 Systolic blood pressure 106 mm[Hg] Page Carolina MD Work Phone: [facility] 02-09-2023 13:16-0400 Body height 153.7 cm Page Carolina MD Work Phone: [facility] 02-09-2023 13:16-0400 Body weight 97.07 kg Page Carolina MD Work Phone: [facility] 02-09-2023 13:16-0400 Diastolic blood pressure 62 mm[Hg] Page Carolina MD Work Phone: [facility] 02-09-2023 13:16-0400 Systolic blood pressure 110 mm[Hg] Page Carolina MD Work Phone: [facility] Encounters Encounter Date Encounter Type Care Provider Facility Start: 08-30-2023 End: 08-30-2023 ambulatory PAGE CAROLINA Facility:[facility] Start: 08-23-2023 End: 08-23-2023 ambulatory PAGE CAROLINA Facility:[facility] Start: 08-18-2023 End: 08-18-2023 ambulatory PAGE CAROLINA Facility:[facility] Start: 08-12-2023 End: 08-12-2023 ambulatory PAGE CAROLINA Facility:[facility] Start: 08-05-2023 End: 08-05-2023 ambulatory AUGUSTA WAYNE Facility:[facility] Start: 07-29-2023 End: 07-29-2023 ambulatory PAGE CAROLINA Facility:[facility] Start: 07-21-2023 End: 07-21-2023 ambulatory PAGE CAROLINA Facility:[facility] Start: 07-21-2023 End: 07-21-2023 ambulatory PAGE CAROLINA Facility:[facility] Start: 07-21-2023 End: 07-21-2023 Patient encounter procedure Page Carolina MD Work Phone: OB/Gynecology Procedures Date Procedure Procedure Detail Performing Clinician Start: 06-21-2023 URINE OB DIP B/O Ju Carolina MD Work Phone: Start: 05-24-2023 URINE OB DIP B/O Ju Carolina MD Work Phone: Start: 04-26-2023 Antibody screen PAGE CAROLINA Plan of Treatment Date Care Activity Detail Author Start: 06-21-2033 Urine microalbumin profile DTaP,Tdap,Td Vaccine (2 - Td or Tdap) [facility] Start: 02-19-2028 HPV TESTING HPV TESTING [facility] Start: 02-19-2028 PAP TESTING PAP TESTING [facility] Start: 02-19-2028 Screening for malignant neoplasm of cervix [facility] Start: 08-02-2023 HPV TESTING HPV TESTING [facility] Start: 08-02-2023 PAP TESTING PAP TESTING [facility] Start: 07-21-2023 RSV Vaccine (1 - Risk 1-dose series) RSV Vaccine (1 - Risk 1-dose series) [facility] Start: 05-24-2023 End: 08-23-2023 CBC W Auto Differential panel - Blood CBC + DIFF Lab Routine AMA (advanced maternal age) multigravida 35+, second trimester 23 weeks gestation of Expected: 05/24/2023, Expires: 08/23/2023 [facility] Work Phone: Immunizations Immunization Date Immunization Notes Care Provider Fa fiona 06-21-2023 tetanus toxoid, redu compa diphtheria toxoid, and acellular pertussis vaccine, adsorbed Page Carolina MD Work Phone: [facility] Work Phone: Payers Date Payer Category Payer Unknown [id number] 2023 Unknown [id number] 2021 Private Health Insurance [facility] [id number] 2021-Present [phone] [address] [id number] O [id number] 2021 Unknown [id number] Social History Date Type Detail Facility Start: 02-09-2023 Tobacco smoking stat [facility] Never smoked tobacco [facility] Work Phone: Start: 02-09-2023 Tobacco use and exposure Smokeless tobacco non-user [facility] Work Phone: Start: 02-09-2023 End: 07-21-2023 Alcohol intake Current non-drinker of alcohol (finding) [facility] Start: 1985 Sex Assigned At Not on file [facility] Start: 02-09-2023 End: 02-17-2023 History of Social function [facility] Start: 02-09-2023 End: 02-17-2023 Tobacco use panel [facility] National Score (1-10 0), lower number is lower risk 91 [facility] Start: 02-17-2023 Education 21 [facility] Start: 12-23-2022 [facility] Start: 02-02-2023 Gender identity Identifies as female gender (finding) [facility] Start: 02-02-2023 Sexual orientation Heterosexual (adri lindsey) [facility] Goals Date Patient Goal Desired Activity /State Personal health goal Clinical Notes 11-30-2017 to 08-23-2023 Quick Notes - Page Carolina MD - 07/21/2023 12:12 PM ESTPatient InstructionsPrenatal Quick Notes - Page Carolina MD - 06/21/2023 8:48 AM ESTPatient Instructions Note Date & Type Note Facility 08-23-2023 Note HNO ID: [id number] Author: PAGE CAROLINA MD Service: ? Author Type: Physician Type: Progress Notes Filed: 08/23/2023 10:13 Note Text: NST SUMMARY PROVIDER ASSESSMENT AND INTERPRETATION Debbie Monaco is a 38 year old female, , who is at 36w5d with an THANG of 09/15/2023, by Last Menstrual Period dating method. Indications for NST: AMA and Obesity Baseline: 135 Variability: Moderate Accelerations: Present 15 X 15 Decelerations: None Contractions: TOCO: None Interpretation: Category I and Reactive SIGNATURE: Page Carolina MD [facility] 08-18-2023 Note HNO ID: [id number] Author: PAGE CAROLINA MD Service: ? Author Type: Physician Type: Progress Notes Filed: 08/18/2023 14:23 Note Text: NST SUMMARY PROVIDER ASSESSMENT AND INTERPRETATION Debbie Monaco is a 38 year old female, , who is at 36w0d with an THANG of 09/15/2023, by Last Menstrual Period dating method. Indications for NST: AMA and Obesity Baseline: 140 Variability: Moderate Accelerations: Present 15 X 15 Decelerations: Variable and one indeterminant Contractions: TOCO: no regular ctxs Interpretation: Category II and Non-Reactive BPP done after, 03/15 SIGNATURE: Page Carolina MD [facility] 08-12-2023 Note HNO ID: [id number] Author: PAGE CAROLINA MD Service: ? Author Type: Physician Type: Progress Notes Filed: 08/12/2023 10:28 Note Text: NST SUMMARY PROVIDER ASSESSMENT AND INTERPRETATION Debbie Monaco is a 38 year old female, , who is at 35w1d with an THANG of 09/15/2023, by Last Menstrual Period dating method. Indications for NST: Obesity Baseline: 135 Variability: Moderate Accelerations: Present 15 X 15 Decelerations: None Contractions: TOCO: Irregular Interpretation: Category I and Reactive SIGNATURE: Page Carolina MD [facility] 08-05-2023 Note HNO ID: [id number] Author: Augusta Wayne APRN.CN Service: ? Author Type: Broom Maker Type: Progress Notes Filed: 08/05/2023 11:48 AM Note Text: NST SUMMARY PROVIDER ASSESSMENT AND INTERPRETATION Debbie Monaco is a 38 year old female, , who is at 34w1d with an THANG of 09/15/2023, by Last Menstrual Period dating method. Indications for NST: Obesity Baseline: 145 Variability: Moderate Accelerations: Present 15 X 15 Decelerations: None Contractions: TOCO: None Interpretation: Reactive SIGNATURE: Augusta Wayne APRN.[facility] 07-29-2023 Note HNO ID: [id number] Author: Page Carolina MD Service: ? Author Type: Physician Type: Progress Notes Filed: 07/29/2023 10:09 AM Note Text: NST SUMMARY PROVIDER ASSESSMENT AND INTERPRETATION Debbie Swanson is a 38 year old female, , who is at 33w1d with an THANG of 09/15/2023, by Last Menstrual Period dating method. Indications for NST: AMA and Obesity Baseline: 130 Variability: Moderate Accelerations: Present 15 X 15 Decelerations: None Contractions: TOCO: None Interpretation: Category I and Reactive SIGNATURE: Page Carolina MD [facility] 07-21-2023 Miscellaneous Notes RR- VB No. LOF No. CTXS No. Movement: present. Other c/o: No. Medication list reviewed. Physical Exam See Flow Sheet Abd: soft, nontender, gravid Ext: edema: 1+ A/P 32w0d Estimated Date of Delivery: 09/15/23 morbid obesity- growth scan ttoday, start antepartum testing plans repeat c/s for delivery f/u in 2 weeks or prn Review RSV vaccine next visit. Page Carolina M.D. documented in this encounter [facility] 07-21-2023 Instructions Sheri Mena Ma - 07/21/2023 9:55 AM EST SEQUENTIAL SCREENINGS The [facility] offers sequential screenings for women who are interested in screenings for chromosomal abnormalities and certain defects during a . The sequential screen combines ultrasound and blood tests to determine the risk of chromosomal abnormalities, including Down's Syndrome (Trisomy 21) and Trisomy 18, as well as open neural tube defects including spina bifida. Ultrasound examination is performed between 11 weeks and 13 weeks gestational age. Blood tests are drawn after the ultrasound and again later in the between 15 and 21 weeks gestational age. Please let your physician know if you are interested in this testing. It will require an appointment with our satellite installation technician. This is not an ultrasound performed by a physician in our office during a routine visit. SIGNS AND SYMPTOMS OF LABOR 1. Contractions every 10 minutes or more often 2. Clear, pink, or brownish fluid (water) leaking from vagina 3. Feeling that baby is pushing down, pressure 4. Low, dull backache 5. Cramps that feel like a period 6. Cramps with or without diarrhea If you notice any of the above symptoms, contact our office at [phone] and ask to speak with a nurse. After hours, you can call doctors registry at [phone] OR call [facility] at [phone] and ask to have the doctor touring production manager paged. If you consider this an emergency, dial 8-3-1 or go to your nearest emergency department. NEED HELP? Are you dealing with a violent or abusive relationship? Are you a victim of rape or sexual assult? Call [facility] ([place]) 24 hour Crisis Hotline: 452.272.7043 or 256-853-9733. MANUAL Your Guide to a Healthy manual is now on-line. Visit [email or web address] to download your free copy documented in this encounter [facility] 06-21-2023 Note HNO ID: [id number] Author: Lou Herrera LPN Service: ? Author Type: ? Type: Progress Notes Filed: 06/21/2023 11:58 AM Note Text: Patient identified by name and date of . Debbie Swanson presents today for a vaccination of Tdap. Patient denies an allergy to latex: yes Patient denies a severe (life-threatening) allergy to a previous dose of Tdap, DTP, DTaP, DT or Td vaccine. Yes Patient denies history of epilepsy or neurological problems: Yes Patient is afebrile and denies being moderately or severely ill: Yes Patient denies history of Guillain-Graham Syndrome (a severe paralytic illness): Yes Tdap Adacel injection was given without incident. See immunizations for details of immunizations administered today. VIS sheet provided: Yes Provider Dr. Carolina was present in office at time of injection. Lou Herrera LPN [facility] 06-21-2023 Miscellaneous Notes RR- VB No. LOF No. CTXS No. Movement: present. Other c/o: No. Medication list reviewed. Physical Exam See Flow Sheet Abd: soft, nontender, gravid Ext: edema: Trace A/P 27w5d Estimated Date of Delivery: 09/15/23 Labs: 28 week labs tdap today plans repeat c/s reviewed contraception options Risks, benefits and alternatives to sterilization have been discussed with the patient. She declines reversible options including LARC. She understands sterilization is permanent, irreversible, risks of failure, regret and ectopic. In addition she understands there are surgical risks as well. Her questions were answered to her satisfaction and consent was signed- considering at time of repeat c/s maternal obesity - growth scans starting 32 weeks, schedule this . Page Carolina M.D. documented in this encounter [facility] 06-21-2023 History of Presen t illness Narrative Patient identified by name and date of . Debbieyoselin Swanson presents today for a vaccination of Tdap. Patient denies an allergy to latex: yes Patient denies a severe (life-threatening) allergy to a previous dose of Tdap, DTP, DTaP, DT or Td vaccine. Yes Patient denies history of epilepsy or neurological problems: Yes Patient is afebrile and denies being moderately or severely ill: Yes Patient denies history of Guillain-Graham Syndrome (a severe paralytic illness): Yes Tdap Adacel injection was given without incident. See immunizations for details of immunizations administered today. VIS sheet provided: Yes Provider Dr. Carolina was present in office at time of injection. Lou Herrera LPN documented in this encounter [facility] 06-21-2023 Instructions Lou Herrera LPN - 06/21/2023 8:16 AM EST SEQUENTIAL SCREENINGS The [facility] offers sequential screenings for women who are interested in screenings for chromosomal abnormalities and certain defects during a . The sequential screen combines ultrasound and blood tests to determine the risk of chromosomal abnormalities, including Down's Syndrome (Trisomy 21) and Trisomy 18, as well as open neural tube defects including spina bifida. Ultrasound examination is performed between 11 weeks and 13 weeks gestational age. Blood tests are drawn after the ultrasound and again later in the between 15 and 21 weeks gestational age. Please let your physician know if you are interested in this testing. It will require an appointment with our satellite installation technician. This is not an ultrasound performed by a physician in our office during a routine visit. SIGNS AND SYMPTOMS OF LABOR 1. Contractions every 10 minutes or more often 2. Clear, pink, or brownish fluid (water) leaking from vagina 3. Feeling that baby is pushing down, pressure 4. Low, dull backache 5. Cramps that feel like a period 6. Cramps with or without diarrhea If you notice any of the above symptoms, contact our office at [phone] and ask to speak with a nurse. After hours, you can call [facility] registry at [phone] OR call [facility] at [phone] and ask to have the doctor touring production manager paged. If you consider this an emergency, dial 9-1-9 or go to your nearest emergency department. NEED HELP? Are you dealing with a violent or abusive relationship? Are you a victim of rape or sexual assult? Call [facility] ([place]) 24 hour Crisis Hotline: 676.264.7945 or 440-980-6297. MANUAL Your Guide to a Healthy manual is now on-line. Visit [email or web address] to download your free copy documented in this encounter [facility] 05-24-2023 Miscellaneous Notes RR- VB No. LOF No. CTXS No. Movement: present. Other c/o: No. Medication list reviewed. Physical Exam See Flow Sheet Abd: soft, nontender, gravid Ext: edema: no A/P 23w5d Estimated Date of Delivery: 09/15/23 Labs: 28 week labs next viusit growth scans at 32 weeks- order in declines flu vaccine today f/u in 4 weeks or prn. Page Carolina M.D. documented in this encounter [facility] 05-24-2023 Sheri Espana Ma - 05/24/2023 8:18 AM EDT SEQUENTIAL SCREENINGS The [facility] offers sequential screenings for women who are interested in screenings for chromosomal abnormalities and certain defects during a . The sequential screen combines ultrasound and blood tests to determine the risk of chromosomal abnormalities, including Down's Syndrome (Trisomy 21) and Trisomy 18, as well as open neural tube defects including spina bifida. Ultrasound examination is performed between 11 weeks and 13 weeks gestational age. Blood tests are drawn after the ultrasound and again later in the between 15 and 21 weeks gestational age. Please let your physician know if you are interested in this testing. It will require an appointment with our satellite installation technician. This is not an ultrasound performed by a physician in our office during a routine visit. SIGNS AND SYMPTOMS OF LABOR 1. Contractions every 10 minutes or more often 2. Clear, pink, or brownish fluid (water) leaking from vagina 3. Feeling that baby is pushing down, pressure 4. Low, dull backache 5. Cramps that feel like a period 6. Cramps with or without diarrhea If you notice any of the above symptoms, contact our office at [phone] and ask to speak with a nurse. After hours, you can call doctors registry at [phone] OR call [facility] at [phone] and ask to have the doctor touring production manager paged. If you consider this an emergency, dial 9-1-6 or go to your nearest emergency department. NEED HELP? Are you dealing with a violent or abusive relationship? Are you a victim of rape or sexual assult? Call [facility] ([place]) 24 hour Crisis Hotline: 804.181.9219 or 265-920-6298. MANUAL Your Guide to a Healthy manual is now on-line. Visit [email or web address] to download your free copy documented in this encounter [facility] 04-28-2023 Miscellaneous Notes Completed, copy to be scanned into EMR then filed in nurses station. Original placed in nurses area to be given to pt at visit on 05/24/23. Pt notified. Lizbeth Messer LPN FMLA paperwork completed and placed on providers desk for signature. Lizbeth Messer LPN documented in this encounter [facility] 04-26-2023 Miscellaneous Notes Anatomy ultrasound reviewed. No abnormalities identified. Follow up as clinically indicated. Please place copy in ob chart. Page Carolina MD documented in this encounter [facility] 04-26-2023 Miscellaneous Notes RR- VB No. LOF No. CTXS No. Movement: present. Other c/o: No. Medication list reviewed. Physical Exam See Flow Sheet Abd: soft, nontender, gravid Ext: edema: Trace A/P 19w5d Estimated Date of Delivery: 09/15/23 Labs: afp and remainder of pn labs today anatomy US done taking ASA f/u in 4 weeks or prn. Page Carolina M.D. documented in this encounter [facility] 04-26-2023 Instructions Sheri Mena Ma - 04/26/2023 10:04 AM EDT SEQUENTIAL SCREENINGS The [facility] offers sequential screenings for women who are interested in screenings for chromosomal abnormalities and certain defects during a . The sequential screen combines ultrasound and blood tests to determine the risk of chromosomal abnormalities, including Down's Syndrome (Trisomy 21) and Trisomy 18, as well as open neural tube defects including spina bifida. Ultrasound examination is performed between 11 weeks and 13 weeks gestational age. Blood tests are drawn after the ultrasound and again later in the between 15 and 21 weeks gestational age. Please let your physician know if you are interested in this testing. It will require an appointment with our satellite installation technician. This is not an ultrasound performed by a physician in our office during a routine visit. SIGNS AND SYMPTOMS OF LABOR 1. Contractions every 10 minutes or more often 2. Clear, pink, or brownish fluid (water) leaking from vagina 3. Feeling that baby is pushing down, pressure 4. Low, dull backache 5. Cramps that feel like a period 6. Cramps with or without diarrhea If you notice any of the above symptoms, contact our office at [phone] and ask to speak with a nurse. After hours, you can call [facility] at [phone] OR call [facility] at [phone] and ask to have the doctor touring production manager paged. If you consider this an emergency, dial 9-1-1 or go to your nearest emergency department. NEED HELP? Are you dealing with a violent or abusive relationship? Are you a victim of rape or sexual assult? Call [facility] ([place]) 24 hour Crisis Hotline: 252.269.2951 or 730-166-3009. MANUAL Your Guide to a Healthy manual is now on-line. Visit [email or web address] to download your free copy documented in this encounter [facility] 03-21-2023 Miscellaneous Notes RR- VB No. LOF No. CTXS No. Movement: absent. Other c/o: No. Rash on arm for about a month, not spreading. Itchy Medication list reviewed. Physical Exam See Flow Sheet Abd: soft, nontender, gravid Ext: edema: Trace rash upper inner arm raised, erythemtous, no open areas, approx 5 x 5 cm, irreg borders A/P 14w4d Estimated Date of Delivery: 09/15/23 Labs: AFP next visit, HIV nad type and screen then as well schedule anatomy US cont. PNV reviewed ASA candidate and taking this f/u in 4 weeks rash on arm c/w contact dermatitis, rx given. Page Carolina M.D. documented in this encounter [facility] 03-21-2023 Instructions Sheri Mena Ma - 03/21/2023 10:00 AM EDT SEQUENTIAL SCREENINGS The [facility] offers sequential screenings for women who are interested in screenings for chromosomal abnormalities and certain defects during a . The sequential screen combines ultrasound and blood tests to determine the risk of chromosomal abnormalities, including Down's Syndrome (Trisomy 21) and Trisomy 18, as well as open neural tube defects including spina bifida. Ultrasound examination is performed between 11 weeks and 13 weeks gestational age. Blood tests are drawn after the ultrasound and again later in the between 15 and 21 weeks gestational age. Please let your physician know if you are interested in this testing. It will require an appointment with our satellite installation technician. This is not an ultrasound performed by a physician in our office during a routine visit. SIGNS AND SYMPTOMS OF LABOR 1. Contractions every 10 minutes or more often 2. Clear, pink, or brownish fluid (water) leaking from vagina 3. Feeling that baby is pushing down, pressure 4. Low, dull backache 5. Cramps that feel like a period 6. Cramps with or without diarrhea If you notice any of the above symptoms, contact our office at [phone] and ask to speak with a nurse. After hours, you can call doctors registry at [phone] OR call [facility] at [phone] and ask to have the doctor touring production manager paged. If you consider this an emergency, dial or go to your nearest emergency department. NEED HELP? Are you dealing with a violent or abusive relationship? Are you a victim of rape or sexual assult? Call [facility] ([place]) 24 hour Crisis Hotline: 983.591.5334 or 442-036-0357. MANUAL Your Guide to a Healthy manual is now on-line. Visit [email or web address] to download your free copy documented in this encounter [facility] 02-18-2023 Note HNO ID: [id number] Author: Page Carolina MD Service: ? Author Type: Physician Type: Progress Notes Filed: 02/18/2023 10:52 AM Note Text: OB point of care ultrasound was performed. See imaging tab for details. Sheri Mena Ma INITIAL OB ASSESSMENT OB Provider: Page Carolina MD HPI: Emi is a 37 year old White Female here to establish Obstetrical Care. Patient's last menstrual period was 12/09/2022 (approximate). from OB Dating Form. Cycles irregular was planned Complaints: mild fatigue OB History T2 L2 SAB0 IAB0 Ectopic0 Multiple0 Live Births2 Previous history: Prior : yes x 2 History of 4th degree laceration: No History of shoulder dystocia: No History of Hypertensive disorders including pre-eclampsia, chronic hypertension or gestational hypertension: No History of gestational diabetes: No Patient's Risk Screening for delivery: MEDICAL/PSYCHOSOCIAL HISTORY: History of hemorrhage or bleeding concerns: No Thyroid Disease: No History of chronic hypertension: No History of pre-existing diabetes: No ABO/RH(D) Date Value Ref Range Status 11/28/2017 O POSITIVE Final No weight on file for this encounter. History of abnormal pap: Yes Prior treatment for cervical dysplasia: none. History of STDs: None Tobacco use: No Caffeine use: No Drug use: No Alcohol use: No Multivitamin with Folic acid: Yes Hindu or heritage: No Would refuse blood transfusion if medically necessary: No Are you currently employed? yes- [employer] Do you have any history of depression, anxiety, PTSD, eating disorders or other mood problems: No Do you have any safety concerns or history of traumatic events that you would like to discuss with your provider: No Depression: denies symptoms of depression. OB Depression and Anxiety Screening- This Encounter (since 02/17/2023) None GENETIC SCREENING: Partner present: Yes Patient verbalized knowledge of partner family health history: NA Do you or your partner have any personal or family history of defects not previously discussed: No Do you have history of a complicated by anomaly, genetic condition, or demise: No Marital Status: Partner: Name: Derick Age: 39 Gender: Male History of STDs: None PAST MEDICAL HISTORY Diagnosis Date Abnormal glandular Papanicolaou smear of cervix 06/02/2005 Abn. Pap smear (cervix) Encounter for insertion or removal of intrauterine contraceptive device 08/30/2008 Mirena, removed 2011 PAST SURGICAL HISTORY Procedure Laterality Date DELIVERY ONLY 2006 , low transverse DELIVERY ONLY 06/19/2018 RC/S, low transverse IUD INSERTION (HYDRAULIC MODELING ENGINEER DEPT)_*FL 08/30/2008 Mirena IUD REMOVAL August 2022 LAPS ABD PRTMANDOMENTUM DX W/WO SPEC BR/WA SPX 09/28/2018 Laparoscopic removal of intraperitoneal IUD, IUD insertion under laparoscopic visualization Current Outpatient Medications Medication Sig Dispense Refill Ihlupbfb-Ut-Mca-Fe-FA tab Take 1 tablet by mouth. No current facility-administered medications for this visit. Allergies As of Date: 02/18/2023 (No Known Allergies) Fully Assessed 02/17/2023 Does patient have penicillin allergy: No REVIEW OF SYSTEMS: GENERAL: Negative for: Fever or Chills HEENT: Negative for: Headache, Impaired Vision, Ringing in Ears, Nosebleeds NECK: Negative for: Swelling, Pain, Stiffness RESPIRATORY: Negative for: Cough, Shortness of breath, Wheezing GASTROINTESTINAL: Negative for: Heartburn, Constipation, Diarrhea, Blood in stool, Vomiting MUSCULOSKELETAL: Negative for: Muscle or joint pain, stiffness, Joint swelling NEUROLOGIC/PSYCHIATRIC: Negative for: Weakness, Paralysis, Numbness, Tingling, Tremor, Anxiety, Depression, Memory loss SKIN: Negative for: Rash, Itching GENITOURINARY: Negative for: vaginal itching, vaginal discharge, hematuria or dysuria PHYSICAL EXAM: LMP 12/09/2022 GENERAL: pleasant in no apparent distress DERMATOLOGY: Normal, without lesions, non-icteric, and non-hirsute NECK: Supple, full range of motion, no adenopathy, and thyroid normal CHEST: Normal inspiratory effort BREAST: soft, non-tender, symmetric, no dominant mass, normal nipple-areolar complex, no lymphadenopathy, and no nipple discharge ABDOMEN: soft, non-tender, and no masses NEURO: alert and oriented x3,exam grossly non-focal PELVIS: External genitalia normal without lesions. Perineal body intact. No vaginal or cervical lesions. Cervix closed. Uterus 10 week size. No adnexal masses or tenderness. Clinical Pelvimetry: Pelvimetry clinically assessed as adequate Limited OB ultrasound exam: single intrauterine and positive cardiac activity OB Risk Screening: Completed, positive findings include: Patient will be less than 17 or greater than 34 at the ti (more content not included)... [facility] 02-17-2023 Note HNO ID: [id number] Author: Lnyn Cherry RN Service: ? Author Type: ? Type: Progress Notes Filed: 02/17/2023 5:22 PM Note Text: # 1 - Date: 10/19/05, Sex: Male, Weight: 7 lb 8.5 oz (3.416 kg), GA: 41w0d, Delivery: Dilation and Evacuation (DANDE), Apgar1: None, Apgar5: None, Living: Living, Comments: arrest of descent # 2 - Date: 06/19/18, Sex: Male, Weight: 6 lb 4 oz (2.835 kg), GA: 39w1d, Delivery: , Low Transverse, Apgar1: 8, Apgar5: 9, Living: Living, Comments: NIMA/QUIQUE Kaufman 800cc # 3 - Date: None, Sex: None, Weight: None, GA: None, Delivery: None, Apgar1: None, Apgar5: None, Living: None, Comments: None [facility] 02-17-2023 Miscellaneous Notes DISTANCE HEALTH VISIT This Team Access Model visit is a phone encounter. It required patient-provider interaction for the medical decision making as documented below. I have communicated my name and active licensure. The patient's identity and physical location were verified at the time of this visit. Patient is 37 years old. Advanced maternal age discussed. Noninvasive and invasive testing options discussed. Patient desires aneuploidy screening. Patient has 2 previous C-sections. Patient is obese. We will plan on early hemoglobin A1c. Patient previously had cystic fibrosis carrier screening testing done and was negative.Lynn Cherry RN documented in this encounter [facility] 02-17-2023 History of Presen t illness Narrative # 1 - Date: 10/19/05, Sex: Male, Weight: 7 lb 8.5 oz (3.416 kg), GA: 41w0d, Delivery: Dilation and Evacuation (D&E), Apgar1: None, Apgar5: None, Living: Living, Comments: arrest of descent # 2 - Date: 06/19/18, Sex: Male, Weight: 6 lb 4 oz (2.835 kg), GA: 39w1d, Delivery: , Low Transverse, Apgar1: 8, Apgar5: 9, Living: Living, Comments: NIMA/QUIQUE Kaufman 800cc # 3 - Date: None, Sex: None, Weight: None, GA: None, Delivery: None, Apgar1: None, Apgar5: None, Living: None, Comments: None documented in this encounter [facility] 02-09-2023 Note HNO ID: [id number] Author: Page Carolina MD Service: ? Author Type: Physician Type: Progress Notes Filed: 02/09/2023 1:50 PM Note Text: [facility] 02-09-2023 Note HNO ID: [id number] Author: Page Carolina MD Service: ? Author Type: Physician Type: Progress Notes Filed: 02/09/2023 1:50 PM Note Text: Debbie Swanson is a 37 year old female who presents for problem visit for +hCG. HPI: 37 YOF [facility] Menses irregular. Had +HCG January 14 approx at home. Mild nausea. No bleeding. Started OTC PNV. No other c/o today. Was a trying for w/ new . OB History T2 L2 SAB0 IAB0 Ectopic0 Multiple0 Live Births2 [employer] Representative History LMP: 12/09/2022 (Approximate), Age at Menarche: Age at First : Age at Menopause: [employer] Representative History Comments: Sexual Activity: Yes; Male Contraception: No contraception data on record PAST MEDICAL HISTORY Diagnosis Date Abnormal glandular Papanicolaou smear of cervix 06/02/2005 Abn. Pap smear (cervix) Encounter for insertion or removal of intrauterine contraceptive device 08/30/2008 Mirena, removed 2011 PAST SURGICAL HISTORY Procedure Laterality Date DELIVERY ONLY 2005 , low transverse DELIVERY ONLY 06/19/2018 RC/S, low transverse IUD INSERTION (HYDRAULIC MODELING ENGINEER DEPT)_*FL 08/30/2008 Mirena IUD REMOVAL August 2022 LAPS ABD PRTMANDOMENTUM DX W/WO SPEC BR/WA SPX 09/28/2018 Laparoscopic removal of intraperitoneal IUD, IUD insertion under laparoscopic visualization FAMILY HISTORY Problem Relation Age of Onset Breast Cancer Mother No Known Problems Father No Known Problems Brother No Known Problems Brother No Known Problems Brother Breast Cancer Maternal Grandmother Cancer Maternal Grandmother lung Coronary Artery Disease Maternal Grandmother Diabetes Maternal Grandmother Hypertension Maternal Grandmother Stroke Maternal Grandmother other (Dementia) Maternal Grandfather No Known Problems Son No Known Problems Son Social History Tobacco Use Smoking status: Never Smokeless tobacco: Never Vaping Use Vaping Use: Never used Substance Use Topics Alcohol use: No Drug use: No Current Outpatient Medications Medication Sig Bqnhbhwb-Qu-Coy-Fe-FA tab Take 1 tablet by mouth. levonorgestrel (MIRENA) 20 mcg/24 hr (5 years) IUD 1 Each by INTRAUTERINE route one time only. No current facility-administered medications for this visit. Allergies As of Date: 02/09/2023 (No Known Allergies) Fully Assessed 02/09/2023 REVIEW OF SYSTEMS Abdomen: No bloating, early satiety, indigestion, or increased flatulence. No abdominal pain, nausea, vomiting, diarrhea, or constipation. Bladder: No dysuria, gross hematuria, urinary frequency, urinary urgency, or incontinence. Breast: No breast lumps, nipple d/c, overlying skin changes, redness or skin retraction. Expanded ROS: N/A Allergies and current medication updated:Yes EXAM: BP 110/62 Ht 5' .5 (1.54m) Wt 214 lb (97.1kg) LMP 12/09/2022 BMI 41.09 kg/(m2). GENERAL: pleasant, female in no apparent distress HEENT: Normocephalic, atraumatic, mucus membranes moist, and no lesions PELVIC: external genitalia normal, normal Bartholin's glands, urethra, [place]'s glands, no vulvar lesions, no cervical lesions, good vaginal support, physiologic discharge present, normal appearing perineal body and perianal region BIMANUAL: uterus normal size, shape and consistency, no adnexal masses, and non-tender ASSESSMENT AND PLAN: Encounter Diagnosis ICD-10-CM 1. Uncertain dates, antepartum, first trimester Z34.91 POC PROPULSION ENGINEER ULTRASOUND 2. Missed menses N92.6 HCG QUAL UR B/O +UPT today. US for viability and to confirm IUP done. Schedule PNOB and NOB. Declines RX for PNV> Will consdier aneuploidy and carrier screening. no family h/o defects, hereditary concerns on either side of family. present today. They agree w/ plan. Page Carolina MD TVUS done, see US report. Page Carolina MD Medical Decision Making: Problems: Moderate: New problem with uncertain prognosis Data: Unique test(s) ordered: 2 Risk: Low: Low risk from testing/treatment Medical Decision Making Level: 3 - Low [facility] 02-09-2023 History of Presen t illness Narrative Debbie Swanson is a 37 year old female who presents for problem visit for +hCG. HPI: 37 YOF [facility] Menses irregular. Had +HCG January 14 approx at home. Mild nausea. No bleeding. Started OTC PNV. No other c/o today. Was a trying for w/ new . OB History T2 L2 SAB0 IAB0 Ectopic0 Multiple0 Live Births2 [employer] Representative History LMP: 12/09/2022 (Approximate), Age at Menarche: Age at First : Age at Menopause: [employer] Representative History Comments: Sexual Activity: Yes; Male Contraception: No contraception data on record PAST MEDICAL HISTORY Diagnosis Date Abnormal glandular Papanicolaou smear of cervix 06/02/2005 Abn. Pap smear (cervix) Encounter for insertion or removal of intrauterine contraceptive device 08/30/2008 Mirena, removed 2011 PAST SURGICAL HISTORY Procedure Laterality Date DELIVERY ONLY 2005 , low transverse DELIVERY ONLY 06/19/2018 RC/S, low transverse IUD INSERTION (HYDRAULIC MODELING ENGINEER DEPT)_*FL 08/30/2008 Mirena IUD REMOVAL August 2022 LAPS ABD PRTM&OMENTUM DX W/WO SPEC BR/WA SPX 09/28/2018 Laparoscopic removal of intraperitoneal IUD, IUD insertion under laparoscopic visualization FAMILY HISTORY Problem Relation Age of Onset Breast Cancer Mother No Known Problems Father No Known Problems Brother No Known Problems Brother No Known Problems Brother Breast Cancer Maternal Grandmother Cancer Maternal Grandmother lung Coronary Artery Disease Maternal Grandmother Diabetes Maternal Grandmother Hypertension Maternal Grandmother Stroke Maternal Grandmother other (Dementia) Maternal Grandfather No Known Problems Son No Known Problems Son Social History Tobacco Use Smoking status: Never Smokeless tobacco: Never Vaping Use Vaping Use: Never used Substance Use Topics Alcohol use: No Drug use: No Current Outpatient Medications Medication Sig Cadjtcrl-Pj-Dji-Fe-FA tab Take 1 tablet by mouth. levonorgestrel (MIRENA) 20 mcg/24 hr (5 years) IUD 1 Each by INTRAUTERINE route one time only. No current facility-administered medications for this visit. Allergies As of Date: 02/09/2023 (No Known Allergies) Fully Assessed 02/09/2023 REVIEW OF SYSTEMS Abdomen: No bloating, early satiety, indigestion, or increased flatulence. No abdominal pain, nausea, vomiting, diarrhea, or constipation. Bladder: No dysuria, gross hematuria, urinary frequency, urinary urgency, or incontinence. Breast: No breast lumps, nipple d/c, overlying skin changes, redness or skin retraction. Expanded ROS: N/A Allergies and current medication updated:Yes EXAM: BP 110/62 Ht 5' .5 (1.54m) Wt 214 lb (97.1kg) LMP 12/09/2022 BMI 41.09 kg/(m^2). GENERAL: pleasant, female in no apparent distress HEENT: Normocephalic, atraumatic, mucus membranes moist, and no lesions PELVIC: external genitalia normal, normal Bartholin's glands, urethra, [place]'s glands, no vulvar lesions, no cervical lesions, good vaginal support, physiologic discharge present, normal appearing perineal body and perianal region BIMANUAL: uterus normal size, shape and consistency, no adnexal masses, and non-tender ASSESSMENT AND PLAN: Encounter Diagnosis ICD-10-CM 1. Uncertain dates, antepartum, first trimester Z34.91 POC PROPULSION ENGINEER ULTRASOUND 2. Missed menses N92.6 HCG QUAL UR B/O +UPT today. US for viability and to confirm IUP done. Schedule PNOB and NOB. Declines RX for PNV> Will consdier aneuploidy and carrier screening. no family h/o defects, hereditary concerns on either side of family. present today. They agree w/ plan. Page Carolina MD TVUS done, see US report. Page Carolina MD Medical Decision Making: Problems: Moderate: New problem with uncertain prognosis Data: Unique test(s) ordered: 2 Risk: Low: Low risk from testing/treatment Medical Decision Making Level: 3 - Low documented in this encounter [facility] documented as of this encounter (statuses as of 02/10/2023) [facility] History of Past illness Narrative* Problem Noted Date Diagnosed Date Resolved Date BV (bacterial vaginosis) 11/30/2017 Overview: 11/30/17-Positive BV-treat after 12 weeks. Augusta Wayne APRN.CNM Patient requested diagnostic testing 11/24/2017 06/27/2018 Overview: 11/24/2017Patient desires nuchal ultrasound and CF carrier screening testing. TKRN Papanicolaou smear of cervix with low grade squamous intraepithelial lesion (LGSIL) 08/23/2008 08/14/2018 documented as of this encounter (statuses as of 02/18/2023) [facility] History of Past illness Narrative* Problem Noted Date Diagnosed Date Resolved Date BV (bacterial vaginosis) 11/30/2017 Overview: 11/30/17-Positive BV-treat after 12 weeks. Augusta Wayne APRN.CNM Patient requested diagnostic testing 11/24/2017 06/27/2018 Overview: 11/24/2017Patient desires nuchal ultrasound and CF carrier screening testing. TKRN Papanicolaou smear of cervix with low grade squamous intraepithelial lesion (LGSIL) 08/23/2008 08/14/2018 documented as of this encounter (statuses as of 03/21/2023) [facility] History of Past illness Narrative* Problem Noted Date Diagnosed Date Resolved Date BV (bacterial vaginosis) 11/30/2017 Overview: 11/30/17-Positive BV-treat after 12 weeks. Augusta Wayne APRN.CNM Patient requested diagnostic testing 11/24/2017 06/27/2018 Overview: 11/24/2017Patient desires nuchal ultrasound and CF carrier screening testing. TKRN Papanicolaou smear of cervix with low grade squamous intraepithelial lesion (LGSIL) 08/23/2008 08/14/2018 documented as of this encounter (statuses as of 04/26/2023) [facility] History of Past illness Narrative* Problem Noted Date Diagnosed Date Resolved Date BV (bacterial vaginosis) 11/30/2017 Overview: 11/30/17-Positive BV-treat after 12 weeks. Augusta Wayne APRN.CNM Patient requested diagnostic testing 11/24/2017 06/27/2018 Overview: 11/24/2017Patient desires nuchal ultrasound and CF carrier screening testing. TKRN Papanicolaou smear of cervix with low grade squamous intraepithelial lesion (LGSIL) 08/23/2008 08/14/2018 documented as of this encounter (statuses as of 04/26/2023) [facility] History of Past illness Narrative* Problem Noted Date Diagnosed Date Resolved Date BV (bacterial vaginosis) 11/30/2017 Overview: 11/30/17-Positive BV-treat after 12 weeks. Augusta Wayne APRN.CNM Patient requested diagnostic testing 11/24/2017 06/27/2018 Overview: 11/24/2017Patient desires nuchal ultrasound and CF carrier screening testing. TKRN Papanicolaou smear of cervix with low grade squamous intraepithelial lesion (LGSIL) 08/23/2008 08/14/2018 documented as of this encounter (statuses as of 04/29/2023) [facility] History of Past illness Narrative* Problem Noted Date Diagnosed Date Resolved Date BV (bacterial vaginosis) 11/30/2017 Overview: 11/30/17-Positive BV-treat after 12 weeks. Augusta Wayne APRN.CNM Patient requested diagnostic testing 11/24/2017 06/27/2018 Overview: 11/24/2017Patient desires nuchal ultrasound and CF carrier screening testing. TKRN Papanicolaou smear of cervix with low grade squamous intraepithelial lesion (LGSIL) 08/23/2008 08/14/2018 documented as of this encounter (statuses as of 05/24/2023) [facility] History of Past illness Narrative* Problem Noted Date Diagnosed Date Resolved Date BV (bacterial vaginosis) 11/30/2017 Overview: 11/30/17-Positive BV-treat after 12 weeks. Augusta Wayne APRN.CNM Patient requested diagnostic testing 11/24/2017 06/27/2018 Overview: 11/24/2017Patient desires nuchal ultrasound and CF carrier screening testing. TKRN Papanicolaou smear of cervix with low grade squamous intraepithelial lesion (LGSIL) 08/23/2008 08/14/2018 documented as of this encounter (statuses as of 06/21/2023) [facility] History of Past illness Narrative* Problem Noted Date Diagnosed Date Resolved Date BV (bacterial vaginosis) 11/30/2017 Overview: 11/30/17-Positive BV-treat after 12 weeks. Augusta Wayne APRN.CNM Patient requested diagnostic testing 11/24/2017 06/27/2018 Overview: 11/24/2017Patient desires nuchal ultrasound and CF carrier screening testing. TKRN Papanicolaou smear of cervix with low grade squamous intraepithelial lesion (LGSIL) 08/23/2008 08/14/2018 documented as of this encounter (statuses as of 07/22/2023) [facility] Diagnosis Uncertain dates, antepartum, first trimester- Primary Missed menses Absence of menstruation [facility]* Diagnosis Antepartum multigravida of advanced maternal age- Primary with history of section, antepartum [facility]* Diagnosis 14 weeks gestation of - Primary state, incidental AMA (advanced maternal age) multigravida 35+, second trimester Allergic contact dermatitis, unspecified trigger Supervision of other high risk pregnancies, first trimester [facility]* Diagnosis AMA (advanced maternal age) multigravida 35+, second trimester- Primary 19 weeks gestation of state, incidental [facility]* Diagnosis Encounter for anatomic survey- Primary AMA (advanced maternal age) multigravida 35+, first trimester BMI 40.0-44.9, adult (HCC) Body Mass Index 40.0-44.9, adult 19 weeks gestation of state, incidental Other obesity due to excess calories affecting in second trimester documented in this encounter [facility] note* Diagnosis AMA (advanced maternal age) multigravida 35+, second trimester- Primary 23 weeks gestation of state, incidental Supervision of other high risk pregnancies, third trimester Supervision of other high risk pregnancies, second trimester [facility] Diagnosis AMA (advanced maternal age) multigravida 35+, second trimester- Primary 27 weeks gestation of state, incidental Need for vaccination Need for prophylactic vaccination and inoculation against unspecified single disease documented in this encounter [facility] note* Diagnosis AMA (advanced maternal age) multigravida 35+, third trimester- Primary Supervision of other high risk pregnancies, third trimester 32 weeks gestation of state, incidental documented in this encounter [facility] for referral (narrative)* Outpatient Procedure (Routine) - Pending Review Specialty Diagnoses / Procedures Referred By Lucinda hayes Referred To Contact [facility] Diagnoses AMA (advanced maternal age) multigravida 35+, second trimester Supervision of other high risk pregnancies, third trimester Procedures NON-STRESS TEST NON-STRESS TEST Page Carolina MD [address] [place] [address] [place] [address] Referral ID Status Reason Start Date Expiration Date Visits Requested Visits Authorized [id number] Pending Review Auto-Generat ed Referral 3 05/23/2024 1 1 * Diagnostic Procedure Only (Routine) - Pending Review Specialty Diagnoses / Procedures Referred By Lucinda hayes Referred To Contact [facility] Diagnoses AMA (advanced maternal age) multigravida 35+, second trimester 23 weeks gestation of Procedures OBSTETRIC ULTRASOUND WHI US PREG UTERUS AFTER 1ST TRIMEST GESTATION Page Carolina MD [address] [place] [address] [facility] [address] [place] [address] Referral ID Status Reason Start Date Expiration Date Visits Requested Visits Authorized [id number] Pending Review Auto-Generat ed Referral 3 05/23/2024 2 1 [facility] Concerns Problem Noted Date Diagnosed Date [facility] - [facility] 02/18/2023 Education - [place] 02/18/2023 Problem Noted Date Diagnosed Date [facility] - [facility] 02/18/2023 Education - [place] 02/18/2023 Problem Noted Date Diagnosed Date [facility] - [facility] 02/18/2023 Education - [place] 02/18/2023 Problem Noted Date Diagnosed Date [facility] - [facility] 02/18/2023 Education - [place] 02/18/2023 Problem Noted Date Diagnosed Date [facility] - [facility] 02/18/2023 Education - [place] 02/18/2023 Problem Noted Date Diagnosed Date [facility] - [facility] 02/18/2023 Education - [place] 02/18/2023 Problem Noted Date Diagnosed Date [facility] - [facility] 02/18/2023 [place] - [place] 02/18/2023 Summary Purpose Family History No Family History Records Found Advance Directives No Advanced Directives Records Found Additional Source Comments Source Comments (unrecognize d section and content) In the event this informatio n is protected by the Federal Confidentiality of Alcohol and Drug Abuse Patient Records regulations: The Federal rules restrict any use of the information to criminally investigate or prosecute any alcohol or drug abuse patient.[facility] event this information is protected by the Federal Confidentiality of Alcohol and Drug Abuse Patient Records regulations: The Federal rules restrict any use of the information to criminally investigate or prosecute any alcohol or drug abuse patient.[facility] the event this information is protected by the Federal Confidentiality of Alcohol and Drug Abuse Patient Records regulations: The Federal rules restrict any use of the information to criminally investigate or prosecute any alcohol or drug abuse patient.[facility] the event this information is protected by the Federal Confidentiality of Alcohol and Drug Abuse Patient Records regulations: The Federal rules restrict any use of the information to criminally investigate or prosecute any alcohol or drug abuse patient.[facility] the event this information is protected by the Federal Confidentiality of Alcohol and Drug Abuse Patient Records regulations: The Federal rules restrict any use of the information to criminally investigate or prosecute any alcohol or drug abuse patient.[facility] the event this information is protected by the Federal Confidentiality of Alcohol and Drug Abuse Patient Records regulations: The Federal rules restrict any use of the information to criminally investigate or prosecute any alcohol or drug abuse patient.[facility] the event this information is protected by the Federal Confidentiality of Alcohol and Drug Abuse Patient Records regulations: The Federal rules restrict any use of the information to criminally investigate or prosecute any alcohol or drug abuse patient.[facility] the event this information is protected by the Federal Confidentiality of Alcohol and Drug Abuse Patient Records regulations: The Federal rules restrict any use of the information to criminally investigate or prosecute any alcohol or drug abuse patient.[facility] the event this information is protected by the Federal Confidentiality of Alcohol and Drug Abuse Patient Records regulations: The Federal rules restrict any use of the information to criminally investigate or prosecute any alcohol or drug abuse patient.[facility] Reason for Visit (unrecogniz ed section and content) Reason Comments Care Reason Onset Date Comments Care 03/21/2023 Reason Onset Date Comments Care 04/26/2023 Reason Comments US Specialty Diagnoses / Procedures Referred By Contac t Referred To Contact [facility] Diagnoses AMA (advanced maternal age) multigravida 35+, first trimester 10 weeks gestation of Supervision of other high risk pregnancies, first trimester Maternal care due to low transverse uterine scar from previous delivery Maternal obesity syndrome in first trimester BMI 40.0-44.9, adult (HCC) Procedures OBSTETRIC ULTRASOUND WHI US PREG UTERUS AFTER 1ST TRIMEST GESTATION Page Carolina MD [address] [place] [address] [facility] [address] [place] [address] Referral ID Status Reason Start Date Expiration Date V isits Requested Visits Authorized [id number] Closed Auto-Generate d Referral 02/18/2023 02/18/2024 1 1 Reason Comments FMLA Paperwork Reason Onset Date Comments Care 05/24/2023 Reason Onset Date Comments Care 06/21/2023 Reason Onset Date Comments Care 07/21/2023 INFORMATION SOURCE (unrecogn ized section and content) FOR RECORDS PERTAINING TO PATIENTS WHO ARE OR HAVE BEEN ENROLLED IN A CHEMICAL DEPENDENCY/SUBSTANCEABUSE PROGRAM, SOME INFORMATION MAY BE OMITTED. This clinical summary was aggregated from multiple sources. Caution should be exercised in using it in the provision of clinical care. This summary normalizes information from multiple sources, and as a consequence, information in this document may materially change the coding, format and clinical context of patient data. In addition, data may be omitted in some cases. CLINICAL DECISIONS SHOULD BE BASED ON THE PRIMARY CLINICAL RECORDS. [employer] provides no warranty or guarantee of the accuracy or completeness of information in this document.
[2023-09-04 23:18] VITALS: BMI 45.0
--- NOTE | 2023-09-05 04:49 | OB.TRI.NOTE ---
HPI - General General Date of Service: 09/04/23 HPI Narrative ANILA GARCIA, is a 38 F who presents at 38 weeks. THANG 09/15/23, . Presents for pubic pain. PFSH PFSH Medical History Complication of section wound Home Medications aspirin 81 mg capsule 81 mg PO DAILY 03/29/23 [History Last Taken Unknown] vitamins no.144-folic acid 400 mcg chewable tablet () 1 tab PO DAILY 03/29/23 [History Last Taken Unknown] Allergy/AdvReac Type Severity Reaction Status Date / Time No Known Allergies Allergy Verified 09/04/23 23:32 Social History Smoking Status: Never smoker History Elective abortions Hx Para 1 Spontaneous abortions Hx # Term Pregnancies Ectopic pregnancies Hx # Pregnancies Multiple births # of living children NST FHR Rate Baby A Baseline: 125 Variability:: Moderate Accelerations:: 15 x 15 Decelerations:: None NST Reactive:: Yes Uterine Activity:: none Assessment & Plan (1) Pain in symphysis pubis during : PLAN: Plan No signs of labor. Pubic discomfort D/C home
== END 2023-09-05 | disposition home or self-care (01) ==
LOC: WPOUT 23:08 → WP 23:10
PROVIDERS: Referring Provider Advanced Practice Midwife; Visit Provider Advanced Practice Midwife
DX: O26.713 Subluxation of symphysis (pubis) in pregnancy, third trimester (principal); Z79.82 Long term (current) use of aspirin; Z3A.38 38 weeks gestation of pregnancy
CPT/HCPCS: 59025; 59050; 99221; G0378

== ENCOUNTER 2023-09-08 05:00 | Inpatient (IN) | payer OTHER, BC, SELFPAY ==
--- NOTE | 2023-08-23 12:25 | HP.PCM_ITS ---
History and Physical Date of Admission: 09/08/23 ? HPI: The patient is a 38 year old female presenting for pre-operative visit. She is scheduled for , for previous c/s on 09/08/23. Procedure discussed along with risks, benefits and complications. Other alternatives discussed for management. Consent form signed? Yes. ? ? PAST MEDICAL HISTORY PAST MEDICAL HISTORY Diagnosis Date ? Abnormal glandular Papanicolaou smear of cervix 06/02/2005 ? Abn. Pap smear (cervix) ? Encounter for insertion or removal of intrauterine contraceptive device 08/30/2008 ? Mirena, removed 2011 ? ? PAST SURGICAL HISTORY PAST SURGICAL HISTORY Procedure Laterality Date ? DELIVERY ONLY ? 2005 ? , low transverse ? DELIVERY ONLY ? 06/19/2018 ? RC/S, low transverse ? IUD INSERTION (OUTBOARD [employer] MECH[employer] DEPT)_*FL ? 08/30/2008 ? Mirena ? IUD REMOVAL ? ? ? August 2022 ? LAPS ABD PRTM&OMENTUM DX W/WO SPEC BR/WA SPX ? 09/28/2018 ? Laparoscopic removal of intraperitoneal IUD, IUD insertion under laparoscopic visualization ? ? ? CURRENT MEDICATIONS Current Outpatient Medications Medication Sig Dispense Refill ? aspirin, enteric coated (ECOTRIN LOW STRENGTH) 81 mg EC tablet Take 2 tablets by mouth once daily. 60 tablet 5 ? Impremeg-Vj-[id number] tab Take 1 tablet by mouth. ? ? ? No current facility-administered medications for this visit. ? ? ALLERGIES: Patient has no known allergies. ? PERSONAL HISTORY: SOCIAL HISTORY Social History ? Tobacco Use ? Smoking status: Never ? Smokeless tobacco: Never Vaping Use ? Vaping Use: Never used Substance Use Topics ? Alcohol use: No ? Drug use: No ? FAMILY HISTORY: FAMILY HISTORY FAMILY HISTORY Problem Relation Age of Onset ? Diabetes Mother ? ? Breast Cancer Mother ? ? No Known Problems Father ? ? No Known Problems Brother ? ? No Known Problems Brother ? ? No Known Problems Brother ? ? Breast Cancer Maternal Grandmother ? ? Cancer Maternal Grandmother ? ? lung ? Coronary Artery Disease Maternal Grandmother ? ? Diabetes Maternal Grandmother ? ? Hypertension Maternal Grandmother ? ? Stroke Maternal Grandmother ? ? other (Dementia) Maternal Grandfather ? ? No Known Problems Son ? ? No Known Problems Son ? ? ? REVIEW OF SYMPTOMS: GENERAL: denies fevers or chills ENDOCRINOLOGY: has not been on steroids Cardiology : denies palpitations or chest pain Respiratory: denies SOB or cough Hematology: denies history of prolonged bleeding or easy bruising or VTE Allergy: Denies history of personal or family history of allergy to anesthesia ? PHYSICAL EXAMINATION: ? VITALS: Blood pressure 114/74, weight 230 lb (104.3 kg), last menstrual period 12/09/2022. ? GENERAL: The patient is well nourished, well hydrated in no acute distress. , The patient is oriented to time, place, and person. NECK: Supple. No lynphadenopathy, normal thyroid, no thyromegaly. LUNGS: Clear to auscultation bilaterally. no wheezes, rhonchi or rales HEART: Regular rate and rhythm, Normal heart sounds, and No murmurs or gallops abd- soft, nontender, gravid, appropriate for gestational age ? IMPRESSION: Estimated Date of Delivery: 09/15/23 ? PLAN: The risks/benefits/alternatives and personal involved for the planned repeat c/s were reviewed with the patient. Her questions were answered to her satisfaction and she desires to proceed. Consent was signed. I reviewed with her postop instructions and expectations. ? ? I have reviewed and updated past medical and surgical history, medications and allergies
[2023-09-08] VITALS (21 sets, daily range): BP systolic 84–134; BP diastolic 37–63; PULSE 58–90; RESP 16–18; TEMP 35.9–36.8; O2SAT 95–100; BMI 43.7
--- NOTE | 2023-09-08 | FALS_PTH ---
PATHOLOGY RESULTS PATIENT: ANILA GARCIA LOC: [facility] U#:[id number] AGE/SX: 38/F ROOM: WP007 RE09/08/[address]: Dr. Shanice Sellers MD : 1985 BED: 1 DIS: 09/10/2023 SPEC #: [id number] RECD: 09/09/23 07:19 STATUS: DAISY BRIGETTE #: [id number] [place]: 09/08/23 00:[address]: Shanice Sellers DEPT: SURGICAL PATHOLOGY RECD BY: Marilyn Choudhary ENTERED: 09/09/23 07:20 SP TYPE: FALL TUBES OTHR DR: No Primary Care Phys Tissues: Fallopian tube Procedures: Surgery Specimen Level II HEADER OPERATION: Tubal ligation PRE-OP DIAGNOSIS: Sterilization TISSUE SUBMITTED: Fallopian tubes MICROSCOPIC DIAGNOSIS Bilateral fallopian tubes, salpingectomy: Bilateral fallopian tubes, no pathologic diagnosis. KELLY:liam 09/12/2023 MICROSCOPIC DESCRIPTION Slides are reviewed. GROSS DESCRIPTION Received in fixative is one container labeled with the patient's name and designated bilateral fallopian tubes, knot in right tube. The specimen consists of bilateral fallopian tubes including fimbrial ends. The right fallopian tube measures 7.0 cm in length and 0.6 cm in diameter and the left fallopian tube measures 7.5 cm in length and 0.5 cm in diameter. Sections reveal unremarkable cut surfaces. Senior Patient Account Representative sections are submitted in two cassettes as follows: 1 - right fallopian tube, 2 - left fallopian tube. / KELLY:liam 09/09/2023 TC:4 CPT: 83740 x2
--- OUTSIDE RECORDS SUMMARY | 2023-09-08 05:18 | XMS RPT_ITS | CCD ---
Author Name Unknown Address [address] [place] [address] Organization [facility] Care Team Providers Care Strategic Marketing Specialist Name Role Phone Unavailable Primary Care Provider Unavailabl e GE, PAGE L Attending Unavailable GE, PAGE L Attending Unavailable GE, PAGE L Attending Unavailable GE, PAGE L Attending Unavailable GE, PAGE L Referring Unavailable GE, PAGE L Referring Unavailable GE, PAGE L Referring Unavailable GE, PAGE L Attending Unavailable GE, PAGE L Referring Unavailable GE, PAGE L Attending Unavailable GE, PAGE L Referring Unavailable GE, PAGE L Referring Unavailable NAMRATA MARTIN Attending Unavail able GE, PAGE L Referring Unavailable GE, PAGE L Attending Unavailable GE, PAGE L Referring Unavailable GE, PAGE L Attending Unavailable AUGUSTA WAYNE Attending Unavailable GE, PAGE L Attending Unavailable GE, PAGE L Referring Unavailable GE, PAGE L Attending Unavailable GE, PAGE L Attending Unavailable GE, PAGE L Referring Unavailable GE, PAGE L Referring Unavailable GE, PAGE L Attending Unavailable GE, PAGE L Attending Unavailable Medications Current Medications Medication Drug Class(es) [...] 35+, third trimester] Onset: 08-18-2023 Episodic Other complications of (1 source) Supervision of elderly multigravida, second trimester; Translations: [AMA (advanced maternal age) multigravida 35+, second trimester] Onset: 06-21-2023 Episodic Other nutritional; endocrine; and metabolic disorders (1 source) Body mass index 40+ - severely obese; Translations: [Body mass index (BMI) 40.0-44.9, adult] 04-26-2023 Chronic Other nutritional; endocrine; and metabolic disorders (1 source) Body mass index (BMI) 40.0-44.9, adult; Translations: [BMI 40.0-44.9, adult ([facility])] Onset: 02-18-2023 Chronic Other screening for suspected [...] Date Time Vital Sign Value Performing Clinician Dennys sims 07-21-2023 09:49-0500 Body weight 101.15 kg Page Carolina MD Work Phone: [facility] 07-21-2023 09:49-0500 Diastolic blood pressure 74 mm[Hg] Page Carolina MD Work Phone: [facility] 07-21-2023 09:49-0500 Systolic blood pressure 114 mm[Hg] Page Carolina MD Work Phone: [facility] 06-21-2023 08:20-0500 Body weight 102.06 kg Page Carolina MD Work Phone: [facility] 06-21-2023 08:20-0500 Diastolic blood pressure 72 mm[Hg] Page Carolina MD Work Phone: [facility] 06-21-2023 08:20-0500 Systolic blood pressure 110 mm[Hg] Page Carolina MD Work Phone: [facility] 05-24-2023 08:18-0400 Body weight 100.7 kg Page Carolina MD Work Phone: [facility] 05-24-2023 08:18-0400 Diastolic blood pressure 78 mm[Hg] Page Carolina MD Work Phone: [facility] 05-24-2023 08:18-0400 Systolic blood pressure 116 mm[Hg] Page Carolina MD Work Phone: [facility] 04-26-2023 10:51-0400 Body weight 97.98 kg Page Carolina MD Work Phone: [facility] 04-26-2023 10:51-0400 Diastolic blood pressure 74 mm[Hg] Page Carolina MD Work Phone: [facility] 04-26-2023 10:51-0400 Systolic blood pressure 108 mm[Hg] Page Carolina MD Work Phone: [facility] 03-21-2023 10:03-0400 Body weight 97.52 kg Page Carolina MD Work Phone: [facility] 03-21-2023 10:03-0400 Diastolic blood pressure 68 mm[Hg] Page Carolina MD Work Phone: [facility] 03-21-2023 10:03-0400 Systolic blood pressure 106 mm[Hg] Page Carolina MD Work Phone: [facility] 02-09-2023 13:16-0400 Body height 153.7 cm Page Carolina MD Work Phone: [facility] 02-09-2023 13:16-0400 Body weight 97.07 kg Page Carolina MD Work Phone: [facility] 02-09-2023 13:16-0400 Diastolic blood pressure 62 mm[Hg] Page Carolina MD Work Phone: [facility] 02-09-2023 13:16-0400 Systolic blood pressure 110 mm[Hg] Page Carolina MD Work Phone: [facility] Encounters Encounter Date Encounter Type Care Provider Facility Start: 09-05-2023 End: 09-05-2023 ambulatory PAGE CAROLINA Facility:[facility] Start: 08-30-2023 End: 08-30-2023 ambulatory PAGE CAROLINA Facility:[facility] Start: 08-23-2023 End: 08-23-2023 ambulatory PAGE CAROLINA Facility:[facility] Start: 08-18-2023 End: 08-18-2023 ambulatory PAGE CAROLINA Facility:[facility] Start: 08-12-2023 End: 08-12-2023 ambulatory PAGE CAROLINA Facility:[facility] Start: 08-05-2023 End: 08-05-2023 ambulatory AUGUSTA WAYNE Facility:[facility] Start: 07-29-2023 End: 07-29-2023 ambulatory PAGE CAROLINA Facility:[facility] Start: 07-21-2023 End: 07-21-2023 ambulatory PAGE CAROLINA Facility:[facility] Start: 07-21-2023 End: 07-21-2023 ambulatory PAGE CAROLINA Facility:[facility] Start: 07-21-2023 End: 07-21-2023 Patient encounter procedure [...] DTaP,Tdap,Td Vaccine (2 - Td or Tdap) [facility] Start: 02-19-2028 HPV TESTING HPV TESTING [facility] Start: 02-19-2028 PAP TESTING PAP TESTING [facility] Start: 02-19-2028 Screening for malignant neoplasm of cervix [facility] Start: 08-02-2023 HPV TESTING HPV TESTING [facility] Start: 08-02-2023 PAP TESTING PAP TESTING [facility] Start: 07-21-2023 RSV Vaccine (1 - Risk 1-dose series) RSV Vaccine (1 - Risk 1-dose series) [facility] Start: 05-24-2023 End: 08-23-2023 CBC W Auto Differential panel - Blood CBC + DIFF Lab Routine AMA (advanced maternal age) multigravida 35+, second trimester 23 weeks gestation of Expected: 05/24/2023, Expires: 08/23/[address] [facility] Work Phone: Immunizations Immunization Date Immunization Notes Care Provider Fa cilisonia 06-21-2023 tetanus toxoid, redu compa diphtheria toxoid, and acellular pertussis vaccine, adsorbed Page Carolina MD Work Phone: [facility] Work Phone: Payers Date Payer Category Payer Unknown [id number] 2023 Unknown [id number] 2021 Private Health Insurance [employer] [id number] 2021-Present [phone] [address] [place] [address] O [id number] 2021 Unknown [id number] Social History Date Type Detail Facility Start: [facility]09[facility]2023 [facility] Work Phone: Start: 02-09-2023 Tobacco use and exposure Smokeless tobacco non-user [facility] Work Phone: Start: 02-09-2023 End: 07-21-2023 Alcohol intake Current non-drinker of alcohol (finding) [facility] Start: 1985 Sex Assigned At Not on file [facility] Start: 02-09-2023 End: 02-17-2023 History of Social function [facility] Start: 02-09-2023 End: 02-17-2023 Tobacco use panel [facility] National Score (1-10 0), lower number is lower risk 91 [facility] Start: 02-17-2023 Education 21 [facility] Start: 12-23-2022 [facility] Start: 02-02-2023 Gender identity Identifies as female gender (finding) [facility] Start: 02-02-2023 Sexual orientation Heterosexual (adri césar) [facility] Goals Date Patient Goal Desired Activity /State Personal health goal Clinical Notes 11-30-2017 to 08-23-2023 Quick Notes - Page Carolina MD - 07/21/2023 12:12 PM ESTPatient InstructionsPrenatal Quick Notes - Page Carolina MD - 06/21/2023 8:48 AM ESTPatient Instructions Note Date & Type Note Facility 08-23-2023 Note HNO ID: [id number] Author: PAGE CAROLINA MD Service: ? Author [...] I and Reactive SIGNATURE: Page Carolina MD [facility] 08-18-2023 Note HNO ID: [id number] Author: PAGE CAROLINA MD Service: ? Author [...] done after, 03/15 SIGNATURE: Page Carolina MD [facility] 08-12-2023 Note HNO ID: [id number] Author: PAGE CAROLINA MD Service: ? Author [...] I and Reactive SIGNATURE: Page Carolina MD [facility] 08-05-2023 Note HNO ID: [id number] Author: Augusta Wayne APRN.CN Service: ? Author Type: [employer] Loader [employer] Unloader Type: Progress Notes Filed: 08/05/2023 11:48 AM Note Text: NST SUMMARY PROVIDER ASSESSMENT AND INTERPRETATION Debbie Monaco is a 38 year old female, , who is at 34w1d with an THANG of 09/15/2023, by Last Menstrual Period dating method. Indications for NST: Obesity Baseline: 145 Variability: Moderate Accelerations: Present 15 X 15 Decelerations: None Contractions: TOCO: None Interpretation: Reactive SIGNATURE: Augusta Wayne APRN.[facility] 07-29-2023 Note HNO ID: [id number] Author: Page Carolina MD Service: ? Author [...] I and Reactive SIGNATURE: Page Carolina MD [facility] 07-21-2023 Miscellaneous Notes RR- VB No. LOF [...] Page Carolina M.D. documented in this encounter [facility] 07-21-2023 Instructions Sheri Mena Ma - 07/21/2023 9:55 AM EST SEQUENTIAL SCREENINGS The [facility] offers sequential screenings for women who are [...] It will require an appointment with our educational technician. This is not an ultrasound performed [...] the above symptoms, contact our office at [phone] and ask to speak with a nurse. After hours, you can call doctors registry at [phone] OR call [facility] at [phone] and ask to have the doctor vocational psychologist paged. If you consider this an emergency, dial 2 or go to your nearest emergency department. NEED HELP? Are you dealing with a violent or abusive relationship? Are you a victim of rape or sexual assult? Call [facility] ([place]) 24 hour Crisis Hotline: 652.137.5633 or 132-308-2186. MANUAL Your Guide to a Healthy manual is now on-line. Visit [email or web address] to download your free copy documented in this encounter [facility] 06-21-2023 Note HNO ID: [id number] Author: Lou Herrera LPN Service: ? Author [...] severely ill: Yes Patient denies history of Guillain-Georgetown Syndrome (a severe paralytic illness): Yes Tdap Adacel injection was given without incident. See immunizations for details of immunizations administered today. VIS sheet provided: Yes Provider Dr. Carolina was present in office at time of injection. Lou Herrera LPN [facility] 06-21-2023 Miscellaneous Notes RR- VB No. LOF [...] Page Carolina M.D. documented in this encounter [facility] 06-21-2023 History of Presen t illness Narrative [...] severely ill: Yes Patient denies history of Guillain-Georgetown Syndrome (a severe paralytic illness): Yes Tdap Adacel injection was given without incident. See immunizations for details of immunizations administered today. VIS sheet provided: Yes Provider Dr. Carolina was present in office at time of injection. Lou Herrera LPN documented in this encounter [facility] 06-21-2023 Instructions Lou Herrera LPN - 06/21/2023 8:16 AM EST SEQUENTIAL SCREENINGS The [facility] offers sequential screenings for women who are [...] It will require an appointment with our educational technician. This is not an ultrasound performed [...] the above symptoms, contact our office at [phone] and ask to speak with a nurse. After hours, you can call doctors registry at [phone] OR call [facility] at [phone] and ask to have the doctor vocational psychologist paged. If you consider this an emergency, dial 9-4 or go to your nearest emergency department. NEED HELP? Are you dealing with a violent or abusive relationship? Are you a victim of rape or sexual assult? Call [facility] ([place]) 24 hour Crisis Hotline: 983.404.3463 or 606-759-3981. MANUAL Your Guide to a Healthy manual is now on-line. Visit [email or web address] Erick to download your free copy documented in this encounter [facility] 05-24-2023 Miscellaneous Notes RR- VB No. LOF [...] Page Carolina M.D. documented in this encounter [facility] 05-24-2023 Sheri Espana Ma - 05/24/2023 8:18 AM EDT SEQUENTIAL SCREENINGS The [facility] offers sequential screenings for women who are [...] It will require an appointment with our educational technician. This is not an ultrasound performed [...] the above symptoms, contact our office at [phone] and ask to speak with a nurse. After hours, you can call doctors registry at [phone] OR call [facility] at [phone] and ask to have the doctor vocational psychologist paged. If you consider this an emergency, dial 91-6 or go to your nearest emergency department. NEED HELP? Are you dealing with a violent or abusive relationship? Are you a victim of rape or sexual assult? Call [facility] ([place]) 24 hour Crisis Hotline: 411.781.3454 or 207-873-1688. MANUAL Your Guide to a Healthy manual is now on-line. Visit [email or web address] to download your free copy documented in this encounter [facility] 04-28-2023 Miscellaneous Notes Completed, copy to be scanned into EMR then filed in nurses station. Original placed in nurses area to be given to pt at visit on 05/24/23. Pt notified. Lizbeth Messer LPN FMLA paperwork completed and placed on providers desk for signature. Lizbeth Messer LPN documented in this encounter [facility] 04-26-2023 Miscellaneous Notes Anatomy ultrasound reviewed. No abnormalities identified. Follow up as clinically indicated. Please place copy in ob chart. Page Carolina MD documented in this encounter [facility] 04-26-2023 Miscellaneous Notes RR- VB No. LOF No. CTXS No. Movement: present. Other c/o: No. Medication list reviewed. Physical Exam See Flow Sheet Abd: soft, nontender, gravid Ext: edema: Trace A/P 19w5d Estimated Date of Delivery: 09/15/23 Labs: afp and remainder of pn labs today anatomy US done taking ASA f/u in 4 weeks or prn. Page Carolina M.D. documented in this encounter [facility] 04-26-2023 Sheri Espana Ma - 04/26/2023 10:04 AM EDT SEQUENTIAL SCREENINGS The [facility] offers sequential screenings for women who are [...] It will require an appointment with our educational technician. This is not an ultrasound performed [...] the above symptoms, contact our office at [phone] and ask to speak with a nurse. After hours, you can call doctors registry at [phone] OR call [facility] at [phone] and ask to have the doctor vocational psychologist paged. If you consider this an emergency, dial [phone] or go to your nearest emergency department. NEED HELP? Are you dealing with a violent or abusive relationship? Are you a victim of rape or sexual assult? Call [facility] ([place]) 24 hour Crisis Hotline: 231.692.9739 or 816-429-7899. MANUAL Your Guide to a Healthy manual is now on-line. Visit [email or web address] to download your free copy documented in this encounter [facility] 03-21-2023 Miscellaneous Notes RR- VB No. LOF [...] Page Carolina M.D. documented in this encounter [facility] 03-21-2023 Instructions Sheri Mena Ma - 03/21/2023 10:00 AM EDT SEQUENTIAL SCREENINGS The [facility] offers sequential screenings for women who are [...] It will require an appointment with our educational technician. This is not an ultrasound performed [...] the above symptoms, contact our office at [phone] and ask to speak with a nurse. After hours, you can call doctors registry at [phone] OR call [facility] at [phone] and ask to have the doctor vocational psychologist paged. If you consider this an emergency, dial 91-6 or go to your nearest emergency department. NEED HELP? Are you dealing with a violent or abusive relationship? Are you a victim of rape or sexual assult? Call [facility] ([place]) 24 hour Crisis Hotline: 250.199.3661 or 670-068-1331. MANUAL Your Guide to a Healthy manual is now on-line. Visit [email or web address] to download your free copy documented in this encounter [facility] 02-18-2023 Note HNO ID: [id number] Author: Page Carolina MD Service: ? 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 No [...] 17 or greater than 34 at the (more content not included)... [facility] 02-17-2023 Note HNO ID: [id number] Author: Lynn Cherry RN Service: ? Author Type: ? [...] Apgar1: 8, Apgar5: 9, Living: Living, Comments: RC/S , EBL 800cc # 3 - Date: None, Sex: None, Weight: None, GA: None, Delivery: None, Apgar1: None, Apgar5: None, Living: None, Comments: None [facility] 02-17-2023 Miscellaneous Notes DISTANCE HEALTH VISIT This [...] negative.Lynn Cherry RN documented in this encounter [facility] 02-17-2023 History of Presen t illness Narrative [...] Apgar1: 8, Apgar5: 9, Living: Living, Comments: RC/S , EBL 800cc # 3 - Date: None, Sex: None, Weight: None, GA: None, Delivery: None, Apgar1: None, Apgar5: None, Living: None, Comments: None documented in this encounter [facility] 02-09-2023 Note HNO ID: [id number] Author: Page Carolina MD Service: ? Author Type: Physician Type: Progress Notes Filed: 02/09/2023 1:50 PM Note Text: [facility] 02-09-2023 Note HNO ID: [id number] Author: Page Carolina MD Service: ? 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 levonorgestrel [...] external genitalia normal, normal Bartholin's glands, urethra, Benns Church's glands, no vulvar lesions, no cervical lesions, good vaginal support, physiologic discharge present, normal appearing perineal body and perianal region BIMANUAL: uterus normal size, shape and consistency, no adnexal masses, and non-tender ASSESSMENT AND PLAN: Encounter Diagnosis ICD-10-CM 1. Uncertain dates, antepartum, first trimester Z34.91 POC BED AND BREAKFAST COOK ULTRASOUND 2. 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 levonorgestrel [...] external genitalia normal, normal Bartholin's glands, urethra, Benns Church's glands, no vulvar lesions, no cervical lesions, good vaginal support, physiologic discharge present, normal appearing perineal body and perianal region BIMANUAL: uterus normal size, shape and consistency, no adnexal masses, and non-tender ASSESSMENT AND PLAN: Encounter Diagnosis ICD-10-CM 1. Uncertain dates, antepartum, first trimester Z34.91 POC BED AND BREAKFAST COOK ULTRASOUND 2. Missed menses N92.6 HCG QUAL [...] 3 - Low documented in this encounter [facility] documented as of this encounter (statuses as of 02/10/2023) [facility]04-25-2018 History of Past illness Narrative* Problem Noted [...] of this encounter (statuses as of 02/18/2023) [facility]2018 History of Past illness Narrative* Problem Noted [...] of this encounter (statuses as of 03/21/2023) [facility]2018 History of Past illness Narrative* Problem Noted Date Diagnosed Date Resolved Date BV (bacterial vaginosis) 11/30/2017 Overview: 18-Positive BV-treat after 12 weeks. Augusta Wayne APRN.CNM Patient requested diagnostic testing 11/24/2017 06/27/2018 Overview: 11/24/2017Patient desires nuchal ultrasound and CF carrier screening testing. TKRN Papanicolaou smear of cervix with low grade squamous intraepithelial lesion (LGSIL) 08/23/2008 08/14/2018 documented as of this encounter (statuses as of 04/26/2023) [facility]2018 History of Past illness Narrative* Problem Noted [...] of this encounter (statuses as of 04/26/2023) [address]25-2018 History of Past illness Narrative* Problem Noted [...] of this encounter (statuses as of 04/29/2023) [facility] History of Past illness Narrative* Problem Noted [...] of this encounter (statuses as of 05/24/2023) [facility] History of Past illness Narrative* Problem Noted [...] of this encounter (statuses as of 06/21/2023) [facility] History of Past illness Narrative* Problem Noted [...] of this encounter (statuses as of 07/22/2023) [facility] Diagnosis Uncertain dates, antepartum, first trimester- Primary Missed menses Absence of menstruation [facility] Diagnosis Antepartum multigravida of advanced maternal age- Primary with history of section, antepartum [facility] Diagnosis 14 weeks gestation of - Primary state, incidental AMA (advanced maternal age) multigravida 35+, second trimester Allergic contact dermatitis, unspecified trigger Supervision of other high risk pregnancies, first trimester [facility] [place] [facility] Diagnosis AMA (advanced maternal age) multigravida 35+, second trimester- Primary 19 weeks gestation of state, incidental documented in this encounter [facility] note* Diagnosis Encounter for anatomic survey- Primary AMA (advanced maternal age) multigravida 35+, first trimester BMI 40.0-44.9, adult (HCC) Body Mass Index 40.0-44.9, adult 19 weeks gestation of state, incidental Other obesity due to excess calories affecting in second trimester [facility] Diagnosis AMA (advanced maternal age) multigravida 35+, second trimester- Primary 23 weeks gestation of state, incidental Supervision of other high risk pregnancies, third trimester Supervision of other high risk pregnancies, second trimester documented in this encounter [facility] note* Diagnosis AMA (advanced maternal age) multigravida 35+, second trimester- Primary 27 weeks gestation of state, incidental Need for vaccination Need for prophylactic vaccination and inoculation against unspecified single disease documented in this encounter [facility] note* Diagnosis AMA (advanced maternal age) multigravida 35+, third trimester- Primary Supervision of other high risk pregnancies, third trimester 32 weeks gestation of state, incidental documented in this encounter [facility] for referral (narrative)* Outpatient Procedure (Routine) - Pending Review Specialty Diagnoses / Procedures Referred By Luicnda hayes Referred To Contact [facility] Diagnoses AMA (advanced maternal age) multigravida 35+, second trimester Supervision of other high risk pregnancies, third trimester Procedures NON-STRESS TEST NON-STRESS TEST Page Carolina MD [address] [place] [address] [address] Referral ID Status Reason Start Date Expiration Date Visits Requested Visits Authorized [id number] Pending Review Auto-Generat ed Referral 3 05/23/2024 1 1 * Diagnostic Procedure Only (Routine) - Pending Review Specialty Diagnoses / Procedures Referred By Lucinda hayes Referred To Contact [facility] Diagnoses AMA (advanced maternal age) multigravida 35+, second trimester 23 weeks gestation of Procedures OBSTETRIC ULTRASOUND WHI US PREG UTERUS AFTER 1ST TRIMEST GESTATION Page Carolina MD [address] [place] [address] [facility] [address] [place] [address] Referral ID Status Reason Start Date Expiration Date Visits Requested Visits Authorized [id number] Pending Review Auto-Generat ed Referral 3 05/23/2024 2 1 [facility] Concerns Problem Noted Date Diagnosed Date [facility] - [facility] 02/18/2023 [place] - [place] 02/18/2023 Problem Noted Date Diagnosed Date [facility] - [facility] 02/18/2023 Education - [place] 02/18/2023 Problem Noted Date Diagnosed Date [facility] - [facility] 02/18/2023 Education - [place] 02/18/2023 Problem Noted Date Diagnosed Date [facility] - [facility] 02/18/2023 Education - [place] 02/18/2023 Problem Noted Date Diagnosed Date [facility] - [facility] 02/18/2023 Education - [place] 02/18/2023 Problem Noted Date Diagnosed Date [facility] - [facility] 02/18/2023 Education - [place] 02/18/2023 Problem Noted Date Diagnosed Date [facility] - [facility] 02/18/2023 Education - [place] 02/18/2023 Summary Purpose Family History No Family [...] or prosecute any alcohol or drug abuse patient.[facility] the event this information is protected by the Federal Confidentiality of Alcohol and Drug Abuse Patient Records regulations: The Federal rules restrict any use of the information to criminally investigate or prosecute any alcohol or drug abuse patient.[facility]bleIn the event this information is protected by the Federal Confidentiality of Alcohol and Drug Abuse Patient Records regulations: The Federal rules restrict any use of the information to criminally investigate or prosecute any alcohol or drug abuse patient.[facility]ble[facility] the event this information is protected by the Federal Confidentiality of Alcohol and Drug Abuse Patient Records regulations: The Federal rules restrict any use of the information to criminally investigate or prosecute any alcohol or drug abuse patient.[facility]bleIn the event this information is protected by the Federal Confidentiality of Alcohol and Drug Abuse Patient Records regulations: The Federal rules restrict any use of the information to criminally investigate or prosecute any alcohol or drug abuse patient.[facility]ble[facility] the event this information is protected by the Federal Confidentiality of Alcohol and Drug Abuse Patient Records regulations: The Federal rules restrict any use of the information to criminally investigate or prosecute any alcohol or drug abuse patient.[facility]bleIn the event this information is protected by the Federal Confidentiality of Alcohol and Drug Abuse Patient Records regulations: The Federal rules restrict any use of the information to criminally investigate or prosecute any alcohol or drug abuse patient.[facility]bleIn the event this information is protected by the Federal Confidentiality of Alcohol and Drug Abuse Patient Records regulations: The Federal rules restrict any use of the information to criminally investigate or prosecute any alcohol or drug abuse patient.[facility]bleIn the event this information is protected by the Federal Confidentiality of Alcohol and Drug Abuse Patient Records regulations: The Federal rules restrict any use of the information to criminally investigate or prosecute any alcohol or drug abuse patient.[facility] Reason for Visit (unrecogniz ed section and content) Reason Comments Care Reason Onset Date Comments Care 03/21/2023 Reason Onset Date Comments Care 04/26/2023 Reason Comments US Specialty Diagnoses / Procedures Referred By Contac t Referred To Contact [facility] Diagnoses AMA (advanced maternal age) multigravida 35+, first trimester 10 weeks gestation of Supervision of other high risk pregnancies, first trimester Maternal care due to low transverse uterine scar from previous delivery Maternal obesity syndrome in first trimester BMI 40.0-44.9, adult (HCC) Procedures OBSTETRIC ULTRASOUND WHI US PREG UTERUS AFTER 1ST TRIMEST GESTATION Page Carolina MD [address] [place] [address] [facility] [address] [place] [address] Referral ID Status Reason Start Date Expiration Date V isits Requested Visits Authorized [id number] Closed Auto-Generate d Referral 02/18/2023 02/18/2024 1 [...] BE BASED ON THE PRIMARY CLINICAL RECORDS. [facility]. provides no warranty or guarantee of the accuracy or completeness of information in this document.
[2023-09-08] MEDS: Lactated Ringers 1,000 ML 999 ML IV (05:39)
[2023-09-08 05:40] LABS: Absolute Lymphocyte Count 1.82 X10^3/uL (0.83-4.51); Absolute Neutrophil Count 6.4 X10^3/uL (2.0-7.7); Basophil# 0.03 X10^3/uL; Basophil% 0.3 % (0-1); Eosinophil# 0.12 X10^3/uL; Eosinophils% 1.4 % (0-5); Hematocrit 34.3 % (37-47); Hemoglobin 11.4 g/dL (12.0-15.0); Lymphocyte # 1.82 X10^3/ul (0.83-4.51); Mean Corp Hgb Conc 33.2 g/dL (32-36); Mean Corpuscular Hgb 30.2 pg (27.0-32.0); Mean Platelet Vol. 10.5 fl (6.2-12.0); Monocyte# 0.25 X10^3/uL; Monocyte% 2.9 % (0-10); NRBC Flagged by Analyzer 0 % (0-5); Neutrophil # 6.38 X10^3/uL (2.7-7.7); Neutrophil % 73.8 % (47-70); Platelet Count 223 K/mm3 (150-450); RBC Distribution Width CV 13.4 % (11.6-14.6); Red Blood Count 3.77 M/mm3 (4.2-5.4); White Blood Count 8.7 K/mm3 (4.4-11.0)
[2023-09-08] MEDS: Acetaminophen 500 MG Tablet 1000 MG PO ×4 (05:40→23:51)
[2023-09-08] MEDS: Sodium Citrate/Citric Acid 30 ML UDC PO (06:22)
[2023-09-08] MEDS: Lactated Ringers 1,000 ML 150 ML IV (06:22)
[2023-09-08] MEDS: Cefazolin 2 GM in 0.9% Normal Saline (100mL Bag) 100 ML IV (07:25)
--- NOTE | 2023-09-08 08:20 | EX.PCM.OBRPT ---
Assessment & Plan (1) delivery delivered: (2) Single live : (3) Maternal obesity syndrome in third trimester: (4) Previous delivery affecting : (5) Sterilization: Maternal Data Information Final THANG: 09/15/23 Gestational age: 39 0/7 Details Operative Information Date of Procedure: 09/08/23 Pre-Operative Diagnosis: Previous section, sterilization request Post-Operative Diagnosis: same Classification: Scheduled Procedure Type: low transverse (and bilateral salpingectomy) rail tractor operator #1: Angie Gonzalez rail tractor operator #2: Ramona Gill MS3 Type of Anesthesia: Spinal Anesthesiologist: Reese Alfaro Special Medications: duramorph Antibiotic Given: Ancef 3 grams IV x1 Drain: [place] to straight drain Estimated Blood Loss: 800 Fluids Replaced: 850 Procedure Start Time: 07:51 Procedure Stop Time: 08:38 Time of Delivery: 07:54 Findings Description of Procedure: The patient was taken to the operating room. She was prepped and draped in the dorsal supine position with a leftward tilt. A Pfannenstiel skin incision was made approximately 2 cm above the symphysis pubis and carried through to underlying layer fascia with the scalpel. The fascia was incised incised in the midline and extended laterally with the Martinez scissors. The fascia was dissected off the rectus muscles with blunt and sharp dissection. The rectus muscles were in the midline and the peritoneum was entered bluntly. The peritoneal incision was stretched and the bladder blade was placed. The uterine incision was made in a low transverse fashion with the scalpel and extended superiorly and inferiorly with blunt dissection. The amniotic membranes were ruptured bluntly and clear amniotic fluid returned. The infant's head was brought to the incision in the flexed position and delivered without difficulty. The remainder of the infant was delivered with gentle traction and fundal pressure in the standard fashion. The mouth and nares were bulb suctioned. The cord was clamped and cut as the infant was stimulated. Cord clamping was delayed. The infant was handed off to the waiting nursing staff. The placenta was delivered with fundal massage and gentle traction in the standard fashion. The uterus was exteriorized and cleared of all clots and debris. The cervix was dilated with a ring forcep. The uterine incision was closed with #1 Vicryl in a running locked fashion. The incision was examined and was found to be hemostatic. The left tube was followed out to the fimbriated end and grasped with Heidy clamps. The LigaSure device was used to clamp, seal and transect the antimesenteric portion of the broad ligament under the tube. The cornual insertion was clamped, sealed and transected and hemostasis was noted. The same procedure was performed on the contralateral side and the specimen was handed off for pathology. The uterus was placed back into the peritoneal cavity and hemostasis was again confirmed. Gaston was placed over the uterine incision, and subcutaneous tissue and over the rectus muscles as well. The rectus muscles were examined and any bleeding was Bovie cauterized. The parietal peritoneum and rectus muscles were closed en bloc with an 0 Vicryl running suture. The rectus fascia was examined and any bleeding was Bovie cauterized and the rectus fascia was closed with 1 Loop PDS suture in a running standard fashion. The subcutaneous tissue was examining and any bleeding was Bovie cauterized. The subcutaneous tissue was reapproximated with 3-0 Vicryl suture. The skin was closed in a subcuticular fashion by the BRANCH CUSTOMER SERVICE REPRESENTATIVE with me present in the labor and delivery suite. I performed the remainder of the procedure with assistance. All sponge, lap, and needle counts were correct. The patient was taken to her room for recovery in a stable condition. Presentation: Positive for Vertex Amniotic Membrane Rupture Type: Artificial Amniotic Fluid Description: Clear Placental Delivery Description: Expressed Placenta Disposition: [facility] Specimen(s) Sent to Pathology: bilateral fallopian tubes Cord Vessel Description: 3 Vessels Cord Entanglement: Around neck x 1, loose Nuchal Cord Compression: Without compression Infant A Gender: Female (7 lb 8 oz, Bianca) (1 minute): 8 (5 minute): 9 Delayed Cord Clamping: Yes Complications Complications: none Admit VTE Documentation VTE Present on Admission: No VTE Mechan Device Prophylaxis: [facility] VTE Pharm Prophylaxis Ordered: Yes
[2023-09-08 08:51] LABS: Syphilis Antibodies Non-reactive
[2023-09-08] MEDS: Oxytocin 15 Units/NS 250ml 15 UNITS/250 ML IV.SOLN 83 UNITS IV (08:55)
[2023-09-08] MEDS: LACTATED RINGERS 500 ML 999 ML IV ×2 (10:04→13:40)
[2023-09-08] MEDS: Ketorolac 30 MG/ML Syringe IV ×3 (10:05→21:04)
[2023-09-08] MEDS: Senna/Docusate Sodium 1 Tablet PO (10:06)
[2023-09-08] MEDS: Lactated Ringers 1,000 ML 100 ML IV (12:00)
[2023-09-08 12:12] LABS: Pathology Specimen OB SEE PATHOLOGY REPORT
[2023-09-08 14:01] LABS: Hematocrit 32.9 % (37-47); Mean Corp Hgb Conc 33.4 g/dL (32-36); Mean Corpuscular Hgb 30.2 pg (27.0-32.0); Mean Corpuscular Volume 90.4 fL (81-99); Mean Platelet Vol. 10.5 fl (6.2-12.0); Platelet Count 200 K/mm3 (150-450); RBC Distribution Width CV 13.5 % (11.6-14.6); RBC Distribution Width SD 44.8 fl (35.1-43.9); Red Blood Count 3.64 M/mm3 (4.2-5.4); White Blood Count 12.6 K/mm3 (4.4-11.0)
[2023-09-08] MEDS: Enoxaparin 40 MG/0.4 ML Syringe SC (19:47)
[2023-09-09 01:46] VITALS: PULSE 70; RESP 16; O2SAT 98
[2023-09-09] MEDS: Ibuprofen 600 MG Tablet PO ×4 (03:14→20:50)
[2023-09-09 03:25] VITALS: BP 89/39; PULSE 72; RESP 16; TEMP 36.6; O2SAT 95
[2023-09-09 04:17] LABS: Hematocrit 29.9 % (37-47); Hemoglobin 10.2 g/dL (12.0-15.0); Mean Corp Hgb Conc 34.1 g/dL (32-36); Mean Corpuscular Hgb 30.7 pg (27.0-32.0); Mean Corpuscular Volume 90.1 fL (81-99); Mean Platelet Vol. 10.4 fl (6.2-12.0); Platelet Count 198 K/mm3 (150-450); RBC Distribution Width CV 13.7 % (11.6-14.6); RBC Distribution Width SD 44.6 fl (35.1-43.9); Red Blood Count 3.32 M/mm3 (4.2-5.4); White Blood Count 8.8 K/mm3 (4.4-11.0)
[2023-09-09] MEDS: Acetaminophen 500 MG Tablet 1000 MG PO ×3 (05:56→17:55)
[2023-09-09 06:00] VITALS: PULSE 75; RESP 16; O2SAT 96
[2023-09-09] MEDS: Enoxaparin 40 MG/0.4 ML Syringe SC ×2 (08:08→20:01)
[2023-09-09] MEDS: Senna/Docusate Sodium 1 Tablet PO (08:09)
[2023-09-09 08:19] VITALS: BP 93/44; PULSE 88; RESP 16; TEMP 36.5
--- NOTE | 2023-09-09 08:56 | PCM.PN.OB ---
Subjective Subjective Pain well controlled, denies CP/SOB. No lightheaded or dizziness. No SA[place]BRIA or visual changes. No N/V. Has been up to void. No flatus Objective Data Objective Data Vital Signs: Vital Signs Temp Pulse Resp BP Pulse Ox O2 Del Method 97.7 F L 88 16 93/44 L 96 Room Air 09/09/23 08:19 09/09/23 08:19 09/09/23 08:19 09/09/23 08:19 09/09/23 06:00 09/09/23 06:00 Oxygen Delivery Method Room Air Weight: 104.871 kg Body Mass Index (BMI) 43.7 Intake & Output: Intake and Output for Last 24 Hours 09/07/23 09/08/23 09/09/23 23:59 23:59 23:59 Intake Total 5417.50 / 5417.50 Output Total 2717 / 2717 350 / 350 Balance 2700.50 / 2700.50 -350 / -350 Lab / Micro Data 09/09/23 04:09 Labs: Laboratory Results - last 24 hr 09/08/23 13:45: WBC 12.6 H, RBC 3.64 L, Hgb 11.0 L, Hct 32.9 L, MCV 90.4, MCH 30.2, MCHC 33.4, RDW Std Deviation 44.8 H, RDW Coeff of Dmitry 13.5, Plt Count 200, MPV 10.5 09/09/23 04:09: WBC 8.8, RBC 3.32 L, Hgb 10.2 L, Hct 29.9 L, MCV 90.1, MCH 30.7, MCHC 34.1, RDW Std Deviation 44.6 H, RDW Coeff of Dmitry 13.7, Plt Count 198, MPV 10.4 Physical Exam Const alert General Appearance: cooperative GI GI Narrative: soft, moderate distention, fundus firm, appropriately tender. Abdominal bandage clean dry and intact Assessment & Plan (1) delivery delivered: PLAN: Pain well controlled, average lochia. Some hypotension w/o tachycardia yesterday. Urine output adequate after boluses. Continue to monitor. HGB/HCT stable, no evidence of hemorrhage. Blood count appropriate for blood loss during surgery.
[2023-09-09 14:50] VITALS: BP 112/48; PULSE 70; RESP 20; TEMP 36.7
[2023-09-09 20:00] VITALS: BP 100/53; PULSE 75; RESP 16; TEMP 36.3; O2SAT 96
[2023-09-09] MEDS: SimETHICONE 80 MG Chewable Tablet PO (20:49)
[2023-09-09] MEDS: oxyCODONE 5 MG Tablet PO (22:54)
[2023-09-10] VITALS: BP 99/38; PULSE 74; RESP 16; TEMP 36.4; O2SAT 94
[2023-09-10] MEDS: Acetaminophen 500 MG Tablet 1000 MG PO ×2 (00:55→06:39)
[2023-09-10] MEDS: Ibuprofen 600 MG Tablet PO ×2 (02:50→08:40)
[2023-09-10 05:22] LABS: Hematocrit 28.7 % (37-47); Hemoglobin 9.7 g/dL (12.0-15.0); Mean Corp Hgb Conc 33.8 g/dL (32-36); Mean Corpuscular Hgb 31.1 pg (27.0-32.0); Mean Platelet Vol. 10.2 fl (6.2-12.0); Platelet Count 183 K/mm3 (150-450); RBC Distribution Width CV 14.2 % (11.6-14.6); Red Blood Count 3.12 M/mm3 (4.2-5.4); White Blood Count 7.5 K/mm3 (4.4-11.0)
[2023-09-10] MEDS: Senna/Docusate Sodium 1 Tablet PO (08:39)
[2023-09-10] MEDS: Enoxaparin 40 MG/0.4 ML Syringe SC (08:40)
--- NOTE | 2023-09-10 08:44 | PCM.DC.SUM ---
Providers Date of Admission: 09/08/23 Primary Care Physician: Sarah Primary Care Phys Reason For Visit: REPEAT Diagnosis Discharge Diagnosis (1) delivery delivered: Status: Acute Code(s): O82 - Encounter for delivery without indication Plan: Pain well controlled, average lochia. Some hypotension w/o tachycardia yesterday. Urine output adequate after boluses. Continue to monitor. HGB/HCT stable, no evidence of hemorrhage. Blood count appropriate for blood loss during surgery. Medications at Discharge Home Medications vitamins no.144-folic acid 400 mcg chewable tablet () 1 tab PO DAILY 03/29/23 acetaminophen 500 mg tablet (Acetaminophen Extra Strength) 1,000 mg (2 x 500 mg) PO Q6H PRN fever or pain 30 days #60 tabs 09/10/23 ibuprofen 600 mg tablet 600 mg PO Q6H PRN Pain 30 days #60 TABLETS 09/10/23 oxycodone 5 mg tablet 5 mg PO Q6H PRN PRN severe pain 7 days #8 TABLETS 09/10/23 Weight / BMI Weight Weight: 104.871 kg Body Mass Index (BMI) 43.7 ABG / Lab / Microbiology Data 09/10/23 05:15 Laboratory: Laboratory Results - last 24 hr 09/10/23 05:15: WBC 7.5, RBC 3.12 L, Hgb 9.7 L, Hct 28.7 L, MCV 92.0, MCH 31.1, MCHC 33.8, RDW Std Deviation 47.0 H, RDW Coeff of Dmitry 14.2, Plt Count 183, MPV 10.2 Meaningful Use Info Meaningful Use Diagnoses (Choose all that apply): None applicable Discharge Plan Admission Admit Date/Time: 09/08/23 05:00 Primary Reason for Your Visit: Repeat and tubal Attending Provider: Shanice Sellers Primary Care Provider: Care Physician,Sarah Primary Discharge Orders/Prescriptions Prescriptions: New acetaminophen [Acetaminophen Extra Strength] 500 mg tablet 1,000 mg PO Q6H PRN (Reason: fever or pain) 30 Days Qty: 60 0RF ibuprofen [ibuprofen] 600 mg tablet 600 mg PO Q6H PRN (Reason: Pain) 30 Days Qty: 60 1RF oxycodone 5 mg tablet 5 mg PO Q6H PRN PRN (Reason: severe pain) 7 Days Qty: 8 0RF Continued 400 mcg tablet,chewable 1 tab PO DAILY Discontinued aspirin 81 mg capsule 81 mg PO DAILY Referrals / Follow Up: Care Physician,No Primary [Primary Care Provider] - Disposition Disposition (needs filled in before D/C Order can be placed): Home, Self Care
[2023-09-10 08:45] VITALS: BP 106/43; PULSE 70; RESP 16; TEMP 36.7; O2SAT 96
--- NOTE | 2023-09-10 08:48 | DS.PCM_ITS ---
Providers Date of Admission: 09/08/23 Primary Care Physician: No Primary Care Phys Reason For Visit: REPEAT Diagnosis Discharge Diagnosis (1) delivery delivered: Status: Acute Code(s): O82 - Encounter for delivery without indication Plan: Pain well controlled, average lochia. Some hypotension w/o tachycardia yesterday. Urine output adequate after boluses. Continue to monitor. HGB/HCT stable, no evidence of hemorrhage. Blood count appropriate for blood loss during surgery. Medications at Discharge Home Medications vitamins no.144-folic acid 400 mcg chewable tablet () 1 tab PO DAILY 03/29/23 acetaminophen 500 mg tablet (Acetaminophen Extra Strength) 1,000 mg (2 x 500 mg) PO Q6H PRN fever or pain 30 days #60 tabs 09/10/23 ibuprofen 600 mg tablet 600 mg PO Q6H PRN Pain 30 days #60 TABLETS 09/10/23 oxycodone 5 mg tablet 5 mg PO Q6H PRN PRN severe pain 7 days #8 TABLETS 09/10/23 Hospital Course Operations - (Repeat LTCS and tubal on ) Summary of Care Provided Minutes Spent on Discharge: 17 Hospital Course: 38-year-old high risk multigravida female admitted for repeat section and tubal ligation. This was performed without difficulty on 09/08/2023. By postop operative day #2 she was ready for discharge and given routine instr uctions and prescriptions. Physical Exam Narrative Pain well-controlled. Average lochia. Positive flatus no bowel movement. Denies lightheadedness, headache or visual changes. Denies shortness of breath or cough or fevers or chills. Const alert General Appearance: cooperative GI GI Narrative: soft, moderate distention, fundus firm, appropriately tender. Abdominal bandage clean dry and intact Weight / BMI Weight Weight: 104.871 kg Body Mass Index (BMI) 43.7 ABG / Lab / Microbiology Data 09/10/23 05:15 Laboratory: Laboratory Results - last 24 hr 09/10/23 05:15: WBC 7.5, RBC 3.12 L, Hgb 9.7 L, Hct 28.7 L, MCV 92.0, MCH 31.1, MCHC 33.8, RDW Std Deviation 47.0 H, RDW Coeff of Dmitry 14.2, Plt Count 183, MPV 10.2 D/C Instructions Discharge Diet: No restrictions May resume sexual activity in: 4-6 weeks Lifting Restrictions: 20 pounds Additional Activity Instructions: Nothing in the vagina for 4-6 weeks. You may return to work/school in 6 weeks. Call your doctor if your incision/area has: Continuous Slow Oozing, Sudden Increased Bleeding, Increased Pain/ Swelling, Increased Redness and Foul Smelling Discharge Call your doctor if you observe: Fever of 101 or Higher and Using more than 1 pad per hour (for 2 hours) Suture Line Care: Avoid Pulling/Pushing and Avoid Pinching/Bending Cleanse incision/area with: Keep Dressing Clean & Dry Please Follow Up With: Shanice Sellers MD When: Call to make an appointment for an incision check in 1-2 [phone]. You will need a post check in 6 weeks. Meaningful Use Info Meaningful Use Diagnoses (Choose all that apply): None applicable Discharge Plan Admission Admit Date/Time: 09/08/23 05:00 Primary Reason for Your Visit: Repeat and tubal Attending Provider: Shanice Sellers Primary Care Provider: Care PhysicianSarah Primary Discharge Orders/Prescriptions Prescriptions: New acetaminophen [Acetaminophen Extra Strength] 500 mg tablet 1,000 mg PO Q6H PRN (Reason: fever or pain) 30 Days Qty: 60 0RF ibuprofen [ibuprofen] 600 mg tablet 600 mg PO Q6H PRN (Reason: Pain) 30 Days Qty: 60 1RF oxycodone 5 mg tablet 5 mg PO Q6H PRN PRN (Reason: severe pain) 7 Days Qty: 8 0RF Continued 400 mcg tablet,chewable 1 tab PO DAILY Discontinued aspirin 81 mg capsule 81 mg PO DAILY Referrals / Follow Up: Care PhysicianSarah Primary [Primary Care Provider] - Disposition Disposition (needs filled in before D/C Order can be placed): Home, Self Care
== END 2023-09-10 11:50 | disposition home or self-care (01) | DRG 784 ==
PROVIDERS: Admitting Provider Obstetrics & Gynecology; Referring Provider Obstetrics & Gynecology; Visit Provider Obstetrics & Gynecology
PROC: 0UT70ZZ Resection of Bilateral Fallopian Tubes, Open Approach (ICD-10-PCS; CPT 59514; principal; 2023-09-08 07:00)
DX: O34.211 Maternal care for low transverse scar from previous cesarean delivery (principal); O99.43 Diseases of the circulatory system complicating the puerperium; I95.9 Hypotension, unspecified; E66.8 Other obesity; O99.214 Obesity complicating childbirth; O69.2XX0 Labor and delivery complicated by other cord entanglement, with compression, not applicable or unspecified; Z37.0 Single live birth; Z30.2 Encounter for sterilization
CPT/HCPCS: 59025; 59050; 85025; 85027; 86780; 86850; 86900; 86901; 88302; 99221; J7120; G0378

== ENCOUNTER 2024-12-14 21:36 | Emergency (ER) | payer BC, SELFPAY ==
[2024-12-14 21:36] VITALS: BP 150/95; PULSE 94; RESP 24; TEMP 36.4; O2SAT 100; BMI 44.6
--- NOTE | 2024-12-14 22:06 | CT_ITS ---
PROCEDURE: ABDOMEN/PELVIS W IV CONT ONLY 12/14/2024 REASON FOR EXAM: PAIN, NAUSEA AND VOMITING TECHNIQUE: Abdomen and pelvis CT with intravenous contrast. Coronal and Sagittal reconstruction series were provided. PATIENT PREPARATION: Per protocol ORAL CONTRAST TYPE: None. CONTRAST: 93 cc Isovue-300 IV One or more dose reduction techniques were used (e.g., Automated exposure control, adjustment of the mA and/or kV according to patient size, use of iterative reconstruction technique. RADIATION DOSE SUMMARY: CTDlvol: 22.04 mGy DLP: 1167.27 mGycm COMPARISON: None available FINDINGS: The lung bases are clear. Mild hepatic steatosis. Likely tiny hepatic cyst left lobe axial 39 and is too small to further characterize. The adrenal glands, kidneys, pancreas and spleen appear within limits. Symmetric nephrograms without hydronephrosis or perinephric stranding. The gallbladder is distended containing multiple large calcified stones measuring around 2 cm. No adjacent inflammatory fat stranding or pericholecystic free fluid. No CT evidence of wall thickening. The common bile duct measures 7 mm and appears to taper within the head of the pancreas without evidence of intrahepatic biliary ductal dilation. May correlate further with LFTs and alkaline phosphatase. Abdominal aorta appears within limits without aneurysm. No adenopathy. No bowel dilation or free air. Normal caliber appendix without secondary signs. Small fat containing umbilical hernia without stranding. Crenated, involuting functional follicle left ovary. The ovaries, uterus and mostly collapsed bladder appears within limits. No free fluid. Asymmetric left sacroiliac sclerotic change for example axial 125. CT/Abdomen/Pelvis W IV Cont ONLY IMPRESSION: The gallbladder is distended containing multiple large calcified stones measuri ng around 2 cm. No adjacent inflammatory fat stranding or pericholecystic free fluid. No CT evidence of wall thickening. The common bile duct measures 7 mm and appears to taper within the head of the pancreas without evidence of intrahepatic biliary ductal dilation. May correlate further with LFTs and alkaline phosphatase. Mild hepatic steatosis. Note of an asymmetric left sacroiliitis. Reading Location: [facility]
--- NOTE | 2024-12-14 22:06 | EDS_ITS ---
HPI HPI - GI History of Present Illness Chief Complaint: Flank Pain Narrative Narrative: 39-year-old female who denies significant past medical history presents with pain in her upper back and epigastrium that started at 7 PM this evening, almost 3 hours ago. She denies any chest pain. On arrival to the emergency department, she experienced nausea and vomiting. She states that the pain is in her bilateral flanks and started suddenly. It radiated roads around to the front and sides. No recent or chills, no cough, no shortness of breath. She states that the pain is not in her chest but lower. PFSH PFS Medical History Sterilization Complication of section wound Home Medications ?Medication ?Instructions ?Recorded ?Last Taken ?Type vitamins no.144-folic 1 tab PO DAILY 03/29/23 Unknown History acid 400 mcg chewable tablet () acetaminophen 500 mg tablet 1,000 mg (2 x 500 mg) PO Q 6H PRN 09/10/23 Unknown Rx (Acetaminophen Extra Strength) fever or pain 30 days # 60 tabs ibuprofen 600 mg tablet 600 mg PO Q6H PRN Pain 30 da ys #60 09/10/23 Unknown Rx TABLETS oxycodone 5 mg tablet 5 mg PO Q6H PRN PRN severe p ain 7 09/10/23 Unknown Rx days #8 TABLETS Allergy/AdvReac Type Severity Reaction Status Date / Time No Known Allergies Allergy Verified 12/14/24 21:36 Surgical History Previous section Social History Smoking Status: Never smoker ROS ROS ED ROS Narrative Constitutional: No fever, no chills. Cardiovascular: No chest pain. No palpitations. No pedal edema. Respiratory: No cough, no shortness of breath. Abdominal: Positive abdominal pain. Positive nausea and vomiting. No problems with bowel movements. Genitourinary: No dysuria. No hematuria. Bilateral flank pain. Musculoskeletal: No myalgias. No arthralgias. Neurologic: No headaches. No dizziness. No lightheadedness. EXAM Physical Exam Narrative Exam Narrative: Afebrile. Vital signs noted. Nontoxic-appearing. Patient vomiting into trash can upon initial examination. Able to transfer to cot. Cardiovascular semination regular rate and rhythm. Lungs clear to auscultation bilaterally. Mild tachypnea. Abdomen is soft and nontender. No CVA tenderness to percussion bilaterally. Neurological examination nonfocal and nonlateralizing. Const Vital Signs: 12/14/24 21:36 12/15/24 00:00 Temperature 97.6 F L Temperature Source Temporal Pulse Rate 94 84 Respiratory Rate 24 H 18 Blood Pressure 150/95 H 125/77 H Blood Pressure Mean 113 93 Pulse Ox 100 100 Oxygen Delivery Method Room Air Room Air MDM MDM MDM Narrative Medical decision making narrative: Differential diagnosis includes but not limited to pancreatitis versus gastritis versus ureterolithiasis versus musculoskeletal back pain. I have lower s uspicion for pulmonary embolism or pneumonia because the history and physical does not support this. Pulse ox is 100% on room air without evidence of hypoxia. Last menstrual period was 2 weeks ago. I will obtain a test as well as basic laboratory work. I do feel CT imaging is indicated. She was administered ondansetron and morphine for analgesia. I reviewed her laboratory work and she has slight elevation of her white count at 11.9 which I think is nonspecific, hemoglobin 14.1, hematocrit 41.9, platelet count 290. CMP is remarkable for glucose of 103 with a normal anion gap of 11, normal BUN and creatinine. LFTs are grossly unremarkable. Total bilirubin normal at 0.29. Lipase normal at 36 so I doubt pancreatitis. Patient states that the morphine was ineffective in treating her pain, so she was administered fentanyl. Repeat examination shows her improved and she is not vomiting she states that the pain is mainly on her left side now. I reviewed the radiology report of the CT of the abdomen and pelvis that she does have gallstones with a distended gallbladder. On my independent visualization of the gallstones I had ordered ultrasound of the right upper quadrant/gallbladder as well. On my review of the radiology report of the gallbladder ultrasound, she has slightly dilated common bile duct of 7 mm, and gallstones within the gallbladder with one's largest 2 cm. The gallbladder is distended and concern would be for early cholecystitis although currently there is no pericholecystic fluid. Gallbladder wall mildly thickened at 3 mm. Given the amount of pain that she was having although her laboratory work is grossly unremarkable especially her LFTs, general surgery Dr. Servando Mcknight was consulted. Patient seen and evaluated by general surgery. She is not having any pain currently. It was felt that she could be discharged for follow-up next week with general surgery. It was thought that she was having more biliary colic. She also has the cholelithiasis. Upon repeat examination she is resting comfortably and motivated for discharge. I offered to write her for analgesics and antinausea medication, but she declined and will take [id number] medications as needed. She will start a clear liquid diet and advance as tolerated and follow-up with general surgery as an outpatient. Return instructions to the emergency department were reviewed. Disposition is discharged home in stable condition. History & Record Review Discussion w/independent historian: Patient Lab Data Attestation: I reviewed the patient's lab results. Labs: Laboratory Results - last 24 hr 12/14/24 22:18 WBC 11.9 H RBC 4.83 Hgb 14.1 Hct 41.9 MCV 86.7 MCH 29.2 MCHC 33.7 RDW Std Deviation 39.8 RDW Coeff of Dmitry 12.8 Plt Count 290 MPV 10.0 Immature Gran % (Auto) 0.400 Neut % (Auto) 69.5 Lymph % (Auto) 23.0 [place] % (Auto) 4.9 Eos % (Auto) 1.8 Baso % (Auto) 0.4 Absolute Neuts (auto) 8.3 H Absolute Lymphs (auto) 2.74 Nucleated RBC % 0 Sodium 137 Potassium 3.9 Chloride 101 Carbon Dioxide 25.2 Anion Gap 11 BUN 14 Creatinine 0.76 Estim Creat Clear Calc 112.33 Est GFR (MDRD) Non-Af 103 BUN/Creatinine Ratio 18.8 Glucose 103 H Calcium 9.2 Total Bilirubin 0.29 AST 21 ALT 14 Alkaline Phosphatase 86 Total Protein 7.8 Albumin 4.1 Globulin 3.7 Albumin/Globulin Ratio 1.1 Lipase 36 Serum , Qual NEGATIVE Urine Color Yellow Urine Clarity Clear Urine pH 5.0 Ur Specific [place] 1.025 Urine Protein 15 H Urine Glucose (UA) Normal Urine Ketones Negative Urine Occult Blood 10 H Urine Nitrite Negative Urine Bilirubin Negative Urine Urobilinogen Normal Ur Leukocyte Esterase Negative Urine RBC 0 SEEN Urine WBC 0-5 SEEN Ur Squamous Epith Cells 5-10 SEEN Urine Bacteria 2+ Urine Mucus 1+ Radiography Diagnostic Testing: Clinical Impression(s) from Imaging Studies Abdomen/Pelvis CT 12/14/24 22:06 IMPRESSION: The gallbladder is distended containing multiple large calcified stones measuring around 2 cm. No adjacent inflammatory fat stranding or pericholecystic free fluid. No CT evidence of wall thickening. The common bile duct measures 7 mm and appears to taper within the head of the pancreas without evidence of intrahepatic biliary ductal dilation. May correlate further with LFTs and alkaline phosphatase. Mild hepatic steatosis. Note of an asymmetric left sacroiliitis. Reading Location: [facility] Chest X-Ray 12/14/24 23:00 IMPRESSION: No Acute Findings. Reading Location: [facility] Gallbladder Ultrasound 12/14/24 23:20 IMPRESSION: Distended gallbladder containing stones as described above without wall thickening or pericholecystic free fluid may represent a prolonged fasting state with possible duct obstruction or early cholecystitis not excluded, clinically correlate. The common bile duct is dilated for age at 7 mm and can not exclude choledocholithiasis. May correlate further with LFTs and alkaline phosphatase. Reading Location: [facility] Discharge Plan Triage Chief Complaint: Flank Pain ED Provider: Jace Chan Dx/Rx/DC Orders Clinical Impression: Biliary colic, Cholelithiasis, Nausea and vomiting Instructions: ED Gallstones with Biliary Colic Prescriptions: No Action acetaminophen [Acetaminophen Extra Strength] 500 mg tablet 1,000 mg PO Q6H PRN (Reason: fever or pain) 30 Days Qty: 60 0RF ibuprofen [ibuprofen] 600 mg tablet 600 mg PO Q6H PRN (Reason: Pain) 30 Days Qty: 60 1RF oxycodone 5 mg tablet 5 mg PO Q6H PRN PRN (Reason: severe pain) 7 Days Qty: 8 0RF 400 mcg tablet,chewable 1 tab PO DAILY Primary Care Provider: Care Physician,No Primary Referrals: Servando Mcknight MD [Med Staff - Active Staff] - 5-7 Days Care Physician,No Primary [Primary Care Provider] - Activity Restrictions/Additional Instructions: Follow-up with Dr. Vazquez sometime next week. Return to the emergency department with fever, increased pain, new or worsening symptoms. Print Language: Yemeni Disposition Disposition: Home, Self Care
[2024-12-14] MEDS: Morphine 4 MG/ML Syringe IV (22:22)
[2024-12-14] MEDS: Ondansetron 4 MG/2 ML Vial IV (22:22)
[2024-12-14] MEDS: 0.9% Normal Saline (1000mL) 1,000 ML 999 ML IV (22:24)
[2024-12-14 22:25] LABS: Red Blood Cells-Urine 0 SEEN /hpf (0-5)
[2024-12-14 22:27] LABS: Absolute Lymphocyte Count 2.74 X10^3/uL (0.83-4.51); Absolute Neutrophil Count 8.3 X10^3/uL (2.0-7.7); Basophil# 0.05 X10^3/uL; Basophil% 0.4 % (0-1); Eosinophil# 0.21 X10^3/uL; Eosinophils% 1.8 % (0-5); Hematocrit 41.9 % (37-47); Hemoglobin 14.1 g/dL (12.0-15.0); Lymphocyte # 2.74 X10^3/ul (0.83-4.51); Mean Corp Hgb Conc 33.7 g/dL (32-36); Mean Corpuscular Hgb 29.2 pg (27.0-32.0); Mean Corpuscular Volume 86.7 fL (81-99); Monocyte# 0.58 X10^3/uL; Monocyte% 4.9 % (0-10); NRBC Flagged by Analyzer 0 % (0-5); Neutrophil # 8.27 X10^3/uL (2.7-7.7); Neutrophil % 69.5 % (47-70); Platelet Count 290 K/mm3 (150-450); RBC Distribution Width CV 12.8 % (11.6-14.6); RBC Distribution Width SD 39.8 fl (35.1-43.9); Red Blood Count 4.83 M/mm3 (4.2-5.4); White Blood Count 11.9 K/mm3 (4.4-11.0)
[2024-12-14 22:43] LABS: Color, Urine Yellow (Yellow); Glucose, Dipstick Normal (Normal); Ketone-Dipstick Negative (Negative); Leukocyte Esterase-Dipstick Negative /ul (Negative); Nitrite-Dipstick Negative (Negative); Occult Blood-Urine 10 /ul (Negative); Protein-Dipstick 15 mg/dl (Negative); Specific Gravity, Urine 1.025 (1.002-1.030); Urine Bilirubin Dipstick Negative (Negative); Urine Clarity Clear (Clear); Urine Urobilinogen Normal (Normal)
[2024-12-14 22:44] LABS: Internal QC Validated? YES +Cl - CLEAR BKGD; Pregnancy, Serum, hCG Quali. NEGATIVE Negative; Record Kit Lot#, Serum Preg. 929381
[2024-12-14 22:48] LABS: Lipase 36 U/L (13-75)
[2024-12-14 22:56] LABS: ALB/GLOB Ratio 1.1 RATIO (0.9-2.4); AST(SGOT) 21 U/L (<=31); Alanine Aminotransfer ALT/SGPT 14 U/L (<=34); Albumin, Serum 4.1 g/dL (3.5-5.0); Alkaline Phosphatase 86 U/L (35-104); Anion Gap 11 (5-15); BUN 14 mg/dL (4-19); BUN/Creat Ratio 18.8 RATIO (10-20); Calcium,Total 9.2 mg/dL (7.6-11.0); Carbon Dioxide 25.2 mmol/L (21.0-32.0); Chloride 101 mmol/L (98-108); Creatinine, Serum 0.76 mg/dL (0.70-1.20); EST Glomerular Filtration Rate 103 (>60); Estimated Creatinine Clearance 112.33 ml/min (50-250); Globulin 3.7 g/dL (2.2-4.2); Glucose 103 mg/dL (70-99); Potassium 3.9 mmol/L (3.3-5.1); Protein, Total 7.8 g/dL (5.9-8.4); Sodium Level 137 mmol/L (133-145); Total Bilirubin 0.29 mg/dL (0.00-1.30)
--- NOTE | 2024-12-14 23:00 | RAD_ITS ---
PROCEDURE: CHEST 1 VIEW (PORTABLE) 12/14/2024 REASON FOR EXAM: PAIN TECHNIQUE: Frontal view of the chest. COMPARISON: None FINDINGS: Hardware: None Heart: Cardiac and mediastinal contours are stable. Lungs: No focal consolidation. No pneumothorax. No pleural effusion. Bones: The bones are unremarkable. Other: RAD/Chest 1 View (Portable) IMPRESSION: No Acute Findings. [facility]
[2024-12-14] MEDS: fentaNYL 100 MCG/2 ML Ampul 50 MCG IV (23:08)
--- NOTE | 2024-12-14 23:20 | US_ITS ---
PROCEDURE: GALLBLADDER 12/14/2024 REASON FOR EXAM: PAIN, NAUSEA AND VOMITING FINDINGS: The study is limited by body habitus and bowel gas The tail of the pancreas is not well seen. The visualized portions of the pancreas appear within limits without evidence of pancreatic ductal dilation. The liver measures 16.2 cm and appears diffusely increased in echogenicity which can be seen with hepatic steatosis or other hepatocellular disease. No evidence of intrahepatic biliary ductal dilation. Hepatic color flow is present with flow in the portal vein hepatopetal as expected. The gallbladder appears distended measuring 13.3 cm and 4.8 cm in width and contains multiple large gallstones measuring around 2 cm. The wall is at the upper limits for thickness at 3 mm. No pericholecystic free fluid seen. Report of a negative sonographic Subramanian's sign, clinically correlate. The common bile duct is dilated for age at 7 mm. The right kidney measures 11.4 x 6.1 x 4.3 cm with a cortical thickness of 1.3 cm. No right hydronephrosis, renal stones or perinephric edema seen. No free fluid seen. US/Gallbladder IMPRESSION: Distended gallbladder containing stones as described above without wall thicken ing or pericholecystic free fluid may represent a prolonged fasting state with possible duct obstruction or early cholecystitis n ot excluded, clinically correlate. The common bile duct is dilated for age at 7 mm and can not exclude choledochol ithiasis. May correlate further with LFTs and alkaline phosphatase. Reading Location: [id number]
--- NOTE | 2024-12-14 23:20 | ED.RN ---
administered 4mg morphine pt report it was ineffective. notified dr zambrano who ordered 50mcg fentanyl. prior to administration pt asked if the meds were safe for . called evie in [facility] who checked their manual and she confirmed both meds were classified as safe for .
[2024-12-14 23:29] LABS: Bacteria 2+ /hpf (None Seen); Mucous, Urine 1+ /hpf (<or=2+); Squamous Epithelial Cells - UA 5-10 SEEN /hpf (5-10); White Blood Cells 0-5 SEEN /hpf (0-5)
[2024-12-15] VITALS: BP 125/77; PULSE 84; RESP 18; O2SAT 100
[2024-12-15 02:00] VITALS: BP 127/65; PULSE 89
--- NOTE | 2024-12-15 02:05 | EX.PCM.CON.S ---
Assessment & Plan Assessment/Plan (1) Biliary colic: PLAN: Patient is a 39-year-old female who presented with bilateral flank pain and ensuing workup showed evidence of cholelithiasis without secondary signs of cholecystitis. Patient reports receiving IV fentanyl over 3 hours ago but has no pain. Indeed on exam patient denies any significant tenderness despite palpation and she has a clear negative Subramanian sign. Therefore, I am glad to conclude this presentation represents a presentation for biliary colic with possible discomfort related to impedance of gallbladder ejection but there is no clinical evidence for cholecystitis. To this end I believe her mild leukocytosis is equivocal and her gallbladder wall, although at the upper limits of normal color remains normal. In the absence of symptoms I do not find cause to recommend inpatient admission and urgent cholecystectomy. However, I do informed Mrs. Garcia that at 2 cm her gallstones are highly likely to cause gallbladder related symptoms in the future and I would recommend she consider elective cholecystectomy. With this impression in mind I have recommended she begin adherence to a low-fat diet and short-term follow-up with me as an outpatient in our clinic to review her symptom experience and discuss possible surgery. She is happy with this resolution. Details of been provided to emergency medicine. Servando Mcknight MD General Surgery Endocrine Surgery Pager: [facility] [address] [place] [address], [address] [place] [address] Office: [phone] (2) Cholelithiasis: HPI Consult Data Date of Consult: 12/15/24 HPI Narrative Reason for Consultation: Acute onset bilateral flank pain HPI Narrative: ANILA GARCIA, is a 39 F who presents to [facility] after developing acute onset bilateral flank pain approximately 7 PM last night. She states that she initially thought she pulled a muscle but after resting the area and taking a hot shower noted no improvement. She describes some mild nausea that started after her presentation to the hospital. She denies prior similar episodes apart from some lower discomfort that she experienced at the time of her last September 2023. At that time she underwent abdominal ultrasound and was told she had gallstones but there was otherwise nothing to be done about them. Mrs. Garcia shares that she had not had dinner prior to her episode and lunch had occurred about 5 hours prior to her episode and consisted of just a salad. Patient's ER workup is notable for CBC with mild leukocytosis of 11.9. CMP was completed and LFTs were within normal limits. CT of the abdomen pelvis was performed showing large gallstones and a distended gallbladder but no evidence of gallbladder wall thickening or stranding. Right upper quadrant ultrasound was performed and radiology noted that the wall thickness was 3 mm at the upper limits of normal but there is no pericholecystic fluid or secondary signs of inflammation. Patient has no past medical history and no regular medications. Surgical history is inclusive of only section. [facility] Medical History Sterilization Complication of section wound Home Medications ?Medication ?Instructions ?Recorded ?Last Taken ?Type vitamins no.144-folic 1 tab PO DAILY 03/29/23 Unknown History acid 400 mcg chewable tablet () acetaminophen 500 mg tablet 1,000 mg (2 x 500 mg) PO Q6H PRN 09/10/23 Unknown Rx (Acetaminophen Extra Strength) fever or pain 30 days #60 tabs ibuprofen 600 mg tablet 600 mg PO Q6H PRN Pain 30 days #60 09/10/23 Unknown Rx TABLETS oxycodone 5 mg tablet 5 mg PO Q6H PRN PRN severe pain 7 09/10/23 Unknown Rx days #8 TABLETS Allergy/AdvReac Type Severity Reaction Status Date / Time No Known Allergies Allergy Verified 12/14/24 21:36 Surgical History Previous section Social History Smoking Status: Never smoker Physical Exam Const alert, oriented x3 and no apparent distress Resp normal respiratory effort GI GI Narrative: Morbidly obese, small umbilical hernia that is nontender and not incarcerated, nondistended, soft, no tenderness to palpation of abdomen. Negative Subramanian sign Lab / Micro Data 12/14/24 22:18 12/14/24 22:18 Labs: Laboratory Results - last 24 hr 12/14/24 22:18: WBC 11.9 H, RBC 4.83, Hgb 14.1, Hct 41.9, MCV 86.7, MCH 29.2, MCHC 33.7, RDW Std Deviation 39.8, RDW Coeff of Dmitry 12.8, Plt Count 290, MPV 10.0, Immature Gran % (Auto) 0.400, Neut % (Auto) 69.5, Lymph % (Auto) 23.0, [place] % (Auto) 4.9, Eos % (Auto) 1.8, Baso % (Auto) 0.4, Absolute Neuts (auto) 8.3 H, Absolute Lymphs (auto) 2.74, Nucleated RBC % 0, Sodium 137, Potassium 3.9, Chloride 101, Carbon Dioxide 25.2, Anion Gap 11, BUN 14, Creatinine 0.76, Estim Creat Clear Calc 112.33, Est GFR (MDRD) Non-Af 103, BUN/Creatinine Ratio 18.8, Glucose 103 H, Calcium 9.2, Total Bilirubin 0.29, AST 21, ALT 14, Alkaline Phosphatase 86, Total Protein 7.8, Albumin 4.1, Globulin 3.7, Albumin/Globulin Ratio 1.1, Lipase 36, Serum , Qual NEGATIVE, Urine Color Yellow, Urine Clarity Clear, Urine pH 5.0, Ur Specific [place] 1.025, Urine Protein 15 H, Urine Glucose (UA) Normal, Urine Ketones Negative, Urine Occult Blood 10 H, Urine Nitrite Negative, Urine Bilirubin Negative, Urine Urobilinogen Normal, Ur Leukocyte Esterase Negative, Urine RBC 0 SEEN, Urine WBC 0-5 SEEN, Ur Squamous Epith Cells 5-10 SEEN, Urine Bacteria 2+, Urine Mucus 1+ Imaging Radiology Impression Abdomen/Pelvis CT 12/14/24 22:06 IMPRESSION: The gallbladder is distended containing multiple large calcified stones measuring around 2 cm. No adjacent inflammatory fat stranding or pericholecystic free fluid. No CT evidence of wall thickening. The common bile duct measures 7 mm and appears to taper within the head of the pancreas without evidence of intrahepatic biliary ductal dilation. May correlate further with LFTs and alkaline phosphatase. Mild hepatic steatosis. Note of an asymmetric left sacroiliitis. Reading Location: [id number] Chest X-Ray 12/14/24 23:00 IMPRESSION: No Acute Findings. Reading Location: [facility] Gallbladder Ultrasound 12/14/24 23:20 IMPRESSION: Distended gallbladder containing stones as described above without wall thickening or pericholecystic free fluid may represent a prolonged fasting state with possible duct obstruction or early cholecystitis not excluded, clinically correlate. The common bile duct is dilated for age at 7 mm and can not exclude choledocholithiasis. May correlate further with LFTs and alkaline phosphatase. Reading Location: [id number] Charges/Coding Visit Charges Office Visits / Consults: 78593 ED Visit; Moderate Severity
[2024-12-15 02:14] VITALS: BP 127/65; PULSE 89; RESP 18; TEMP 36.6; O2SAT 97
== END 2024-12-15 02:26 | disposition home or self-care (01) ==
PROVIDERS: Emergency Provider Emergency Medicine; Visit Provider Emergency Medicine
DX: K80.70 Calculus of gallbladder and bile duct without cholecystitis without obstruction (principal); R11.2 Nausea with vomiting, unspecified; K82.8 Other specified diseases of gallbladder
CPT/HCPCS: 71045; 74177; 76705; 80053; 81001; 83690; 84703; 85025; 93005; 96361; 96374; 96375; 99282; Q9967; A4216; J2405

== ENCOUNTER 2025-02-25 11:06 | Day surgery (SDC) | payer BC, SELFPAY ==
[2025-02-25] VITALS (15 sets, daily range): BP systolic 102–124; BP diastolic 52–76; PULSE 69–79; RESP 16–20; TEMP 36.3–36.9; O2SAT 88–100; BMI 45.5
--- NOTE | 2025-02-25 11:30 | RAD_ITS ---
PROCEDURE: CHOLANGIOGRAM/ O R,INITIAL 02/25/2025 REASON FOR EXAM: LAP JELLY W/ IOC TECHNIQUE: CHOLANGIOGRAM/ O R,INITIAL COMPARISON: Ultrasound 12/15/2024 FINDINGS: Cannulation of the remnant cystic duct. Nondilated biliary tree. No filling defect. Contrast flows into the duodenum. RAD/Cholangiogram/ O R,Initial IMPRESSION: Unremarkable intraoperative cholangiogram Reading Location: [facility]
--- NOTE | 2025-02-25 11:52 | PCM.HP.BLA ---
History and Physical Date of Admission: 02/25/25 Date of Service: 02/04/25 MR#: [id number] Acct: [id number] Name: ANILA GARCIA Rep #: [id number] : 1985 Provider: Dr. Servando Mcknight MD Age/Sex: 39/F Location: [facility] Status: Signed Intake Vital Signs 12/14/2520:36 02/04/2514:08 Height 5 ft 1 in 5 ft Weight: 228 lb BMI 44.5 BP 137/92 H Blood Pressure Location Rt brachial Position Sitting Respiration 16 Intake Visit Reasons: ER F/U- GALLSTONES Chief Complaint: gallstones Street Contractor Required: No Is patient in pain?: No Allergies No Known Allergies Allergy (Verified 02/04/25 14:08) Have you fallen in the past year?: No [facility] Medical History (Updated 02/04/25 @ 17:[address] Servando Mcknight MD) Gallstones Sterilization Complication of section wound Surgical History (Updated 02/04/25 @ 14:08 by Rachana Carl) Previous section Family History (Updated 02/04/25 @ 14:08 by Rachana Carl) Mother Diabetes HypertensionSon AsthmaGrandmother Breast cancer CVA (cerebral vascular accident) Social History (Updated 02/04/25 @ 14:08 by Racahna Carl) Smoking Status: Never smoker alcohol intake: never HPI HPI HPI: Patient is a 39-year-old female who presents for follow-up of recent ER visit occasioned by experience of severe right upper quadrant pain. today patient reports that she has had no further issues since her ER visit and specifically denies any right upper quadrant discomfort or nausea. She does note that she has changed her diet dramatically?not solely based on her experience in the ER but also because her was recently diagnosed with diabetes. Patient relates that her first time she was diagnosed with gallstones was when she was 6 months . She notes frustration of feeling like her options were limited through the . She states that her daughter is now 18 months old and so there is roughly 15 months between her experience of pain the first time and her more intense experience the second time around. She states she is interested in having something done if there is an indication to minimize her risk for a third experience of symptoms. Exam Const General: cooperative and comfortable Orientation: alert, awake and oriented x3 Resp Effort & Inspection: normal respiratory effort GI Other: Obese, no visible hernias, soft, nontender to palpation x 4 quadrants, negative Subramanian sign Assessment and Plan Assessment and Plan (1) Gallstones: Status: Acute Comment: Patient with approximately 6 very large gallstones and history of 2 prior gallbladder attacks that were described with classic biliary colic symptoms. Patient has been asymptomatic since her most recent attack but is also changed her diet significantly since that time. I shared with her that, unfortunately, I believe she is at rather high risk of having a recurrence of her symptoms given the appearance of her imaging which included both CT exam and ultrasound during her ER evaluation. The former showed gallstones measuring up to 2.2 cm in diameter and stacked within the body towards the gallbladder neck. The full length of the gallbladder measured approximately 16 cm. The latter showed mild common bile duct dilatation. This combination was suggestive for possible recently passed stone and conveys a risk for future biliary colic versus chronic cholecystitis. I reviewed patient's CT imaging with her directly and also used hand drawings to communicate relevant points. It is with this risk for future symptoms in mind /complication risk for future symptoms that I recommend we pursue an elective cholecystectomy. Plan: ? Laparoscopic cholecystectomy intraoperative cholangiography to be performed on outpatient basis at first mutually available date. Procedure risks discussed including bleeding, infection, bile duct injury. (2) Biliary colic: Status: Inactive Comment: Reportedly resolved but patient has had 2 significant episodes. I have examined the patient and the H&P has been reviewed. There are no clinical changes since date of exam. Procedure expectations and postprocedure recovery expectations were reviewed with patient and her . They offer no further questions. Proceed to the operating room for planned procedure as described above. Of note, consents were confirmed prior to departing the preoperative holding area.
--- NOTE | 2025-02-25 12:02 | EKG12_ITS ---
Test Reason : PREOP Blood Pressure : */* mmHG Vent. Rate : 70 BPM Atrial Rate : 70 BPM P-R Int : 178 ms QRS Dur : 90 ms QT Int : 424 ms P-R-T Axes : 17 -37 -2 degrees QTcB Int : 457 ms Normal sinus rhythm Left axis deviation Pulmonary disease pattern Abnormal ECG When compared with ECG of 14-Dec-2024 22:34, No significant change was found Confirmed by Servando Palencia ([id number]), publication editor RAFAEL MARS ([id number]) on 02/27/2025 2:00:38 PM Referred By: Servando Mcknight Confirmed By: Servando Palencia
--- NOTE | 2025-02-25 12:15 | PCM.PRE.AN2 ---
ASA Classification* ASA Classification ASA Classification: 3 Assessment & Plan Anesthesia* Anesthesia Assessment Anesthesia Assessment: Discussed sedation and/or anesthesia options, risks, benefits, and alternatives with patient/parents/legal guardian/POA. Questions invited. The patient/parents/legal guardian/POA seems to understand and agrees to proceed with anesthesia plan. Reviewed the physical assessment, medical history, allergy history and patient home medications list prior to surgery/procedure/anesthetic and documented any changes. Performed airway and anesthesia risk assessments. Anesthesia Type Anesthesia Type: General History Source History Obtained from:: Patient and Chart Anesthesia Focused Assessment* Temperature: 98.5 F Pulse Rate: 69 Blood Pressure: 124/66 Respiratory Rate: 16 Pulse Ox: 96 Oxygen Delivery Method: Room Air Airway Assessment Mouth opens: >3 cm Mallampati Score: I Teeth Condition: Intact Neck Range of motion (ROM): Full ROM Labs Anesthesia Preop lab: CBC WBC 11.9 K/mm3 (4.4-11.0) H 12/14/24 22:18 12/14/24 RBC 4.83 M/mm3 (4.2-5.4) 12/14/24 22:18 12/14/24 Hgb 14.1 g/dL (12.0-15.0) 12/14/24 22:18 12/14/24 Hct 41.9 % (37-47) 12/14/24 22:18 12/14/24 Plt Count 290 K/mm3 (150-450) 12/14/24 22:18 12/14/24 CHEMISTRY Potassium 3.9 mmol/L (3.3-5.1) 12/14/24 22:18 12/14/24 Sodium 137 mmol/L (133-145) 12/14/24 22:18 12/14/24 BUN 14 mg/dL (4-19) 12/14/24 22:18 12/14/24 Creatinine 0.76 mg/dL (0.70-1.20) 12/14/24 22:18 12/14/24 Glucose 103 mg/dL (70-99) H 12/14/24 22:18 12/14/24 POC Glucose 105 mg/dL (70-110) 06/19/18 10:00 06/19/18 COAG Urine Test Negative Negative 09/28/18 11:17 09/28/18 Pre-Assessment Diagnosis/Proposed Procedure Planned Operative Procedure(s): Laparoscopic, Cholecystectomy with IOC Anesthesia History 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 When Was Last Pacemaker Check QUESTION #4 FULL TEXT: You/Your Family Experience fever (hyperthermia) with Anesthesia Last Oral Intake Last Oral intake: Last Oral Intake NPO since 11:00 02/25/25 11:25 Meds taken in AM with sips of No 02/25/25 11:25 water? Meds patient instructed to take am of surgery PONV PONV - film rental clerk: PONV - film rental clerk Female Yes 02/11/25 10:52 HX of Motion Sickness No 02/11/25 10:52 HX of N/V After Surgery No 02/11/25 10:52 Non-Smoker Yes 02/11/25 10:52 Duration of Surgery greater Yes 02/11/25 10:52 than 60 minutes Number of Risk Factors 3 02/11/25 10:52 PONV Score Moderate Risk 02/11/25 10:52 Height & Weight Height & Weight: Anesthesia: Height & Weight Height 5 ft 02/25/25 11:25 Weight: 105.8 kg 02/25/25 11:25 Body Mass Index (BMI) 45.5 02/25/25 11:25 Respiratory Assessment Respiratory Assessment - film rental clerk: Respiratory Tract Infection Hx - film rental clerk Hx Respiratory Tract Infection No 02/11/25 10:52 STOP Sleep Apnea STOP Sleep Apnea - film rental clerk: STOP Sleep Apnea - film rental clerk Hx Hypertension No 02/11/25 10:52 Hx Sleep Apnea No 02/11/25 10:52 CPAP BIPAP Do you snore loudly (louder No 02/11/25 10:52 than talking or can be heard Do you often feel tired/ No 02/11/25 10:52 fatigued/ sleepy during daytime? Has anyone observed you stop No 02/11/25 10:52 breathing during sleep? STOP Results Negative 02/11/25 10:52 QUESTION #5 FULL TEXT : Do you snore loudly (louder than talking or can be heard through closed doors)? Tobacco Use History Tobacco Use History - film rental clerk: Tobacco Use History - film rental clerk Tobacco Use Smoking Status Never smoker 02/11/25 10:52 Hx Tobacco Use No 02/11/25 10:52 Years Smoking Packs Smoked per Day Smoking Cessation Date was within the last 15 years Hx Smoking Cessation Date Hx Smoking Cessation Counseling Hematologic Medial History Hematologic Hx - film rental clerk: Hematologic Medical Hx - clinical documentation developer Hx of Blood Transfusion No 02/11/25 10:52 Hx of Transfusion in last 3 No 02/11/25 10:52 Months Date of Last Transfusion (if within last 3 months) Ever experience any problems No 02/11/25 10:52 with transfusion(s)? Specify any problems Hx of Preganancy in last 3 No 02/11/25 10:52 Months Nurse Filling Out Transfusion MGRIFFITH 02/11/25 10:52 & Questions: Date: 02/11/25 02/11/25 10:52 Time: 10:54 02/11/25 10:52 Patient unable to answer at this time (ie. confused, unrespo /Reproduction History /Reproductive History - film rental clerk: /Reproductive Hx- film rental clerk Hx Now No 02/11/25 10:52 Gestational Age (in weeks): EDC: Hx Hx Para Hx Section SAB Yes 02/11/25 10:52 Active Medications Active Medications: Current Medications Generic Name Dose Route Start Last Admin Trade Name Freq PRN Reason Stop Dose Admin Cefazolin Sodium 2 gm/ Sodium 110 mls @ 200 mls/hr 02/25/25 12:30 Chloride IV 02/25/25 13:02 INTRAOP ONE Lactated Ringer's 1,000 mls @ 15 mls/hr 02/25/25 11:15 IV .Q48H LINH PFSH Medical History (Updated 02/04/25 @ 17:[address] Servando Mcknight MD) Non-smoker Gallstones Sterilization Complication of section wound Home Medications ?Medication ?Instructions ?Recorded ?Last Taken ?Type acetaminophen 500 mg tablet 1,000 mg (2 x 500 mg) PO Q6H PRN 09/10/23 Unknown Rx (Acetaminophen Extra Strength) fever or pain 30 days #60 tabs ibuprofen 600 mg tablet 600 mg PO Q6H PRN Pain 30 days #60 09/10/23 Unknown Rx TABLETS Allergy/AdvReac Type Severity Reaction Status Date / Time No Known Allergies Allergy Verified 02/11/25 10:51 Family History (Updated 02/04/25 @ 14:08 by Rachana Carl) Mother Diabetes Hypertension Son Asthma Grandmother Breast cancer CVA (cerebral vascular accident) Surgical History (Updated 02/11/25 @ 10:59 by Roselyn Wright) History of tubal ligation Previous section Social History (Updated 02/04/25 @ 14:08 by Rachana Carl) Smoking Status: Never smoker alcohol intake: never Review of Systems (Anesthesia) ROS Narrative System reviewed and no additional complaints, except as documented.
[2025-02-25] MEDS: Lactated Ringers 1,000 ML 15 ML IV (12:17)
--- NOTE | 2025-02-25 12:30 | GALL_PTH ---
PATIENT: ANILA GARCIA [place] [facility] [place][id number] AGE/SX: 39/F ROOM: RE02/25/[address]: Dr. Servando Mcknight MD : 1985 BED: DIS: 02/25/2025 SPEC #: [id number] RECD: 02/25/25 16:27 STATUS: DAISY REMarlen #: [id number] [place]: 02/25/25 12:[address]: Servando Mcknight DEPT: SURGICAL PATHOLOGY RECD BY: Geovany Jarquin ENTERED: 02/26/25 10:57 SP TYPE: FLEX CYR DR: No Primary Care Phys Tissues: A - Gallbladder, NOS Procedures: Surgery Specimen Level III HEADER OPERATION: Laparoscopic cholecystectomy with IOC PRE-OP DIAGNOSIS: Gallstones TISSUE SUBMITTED: A- Gallbladder MICROSCOPIC DIAGNOSIS A. Gallbladder, gallstones, cholecystectomy: - Chronic cholecystitis, cholelithiasis. MICROSCOPIC DESCRIPTION Slides are reviewed. GROSS DESCRIPTION A. Received in formalin labeled with the patient's name and date of . Designated as gallbladder is a 11.5 x 3.1 x 2.4 cm purple-topete, intact gallbladder with attached patent cystic duct (inked black, shaved). A lymph node is not present. Opening reveals minimal bile and multiple multifaceted to bosselated choleliths, ranging 1.3 cm to 2.9 cm. The mucosa is echols-red to brown granular and eroded with a maximum wall thickness of 0.3 cm. Cholesterolosis is not present. And Taxi Instructor Bus Trolley sections are submitted in 1 cassette. [place] 02/26/2025 CPT:34778
[2025-02-25] MEDS: Bupiv/Epi 0.25% 30 ML Vial (15:08)
--- NOTE | 2025-02-25 15:23 | PCM.OPRPT ---
Procedures Digestive 40xxx-49xxx: [id number] Laparo cholecystectomy/graph Operative Report (Standard) Operative Information Date of Procedure: 02/25/25 Pre-Operative Diagnosis: 1. Biliary colic 2. Cholelithiasis Post-Operative Diagnosis: 1. Chronic cholecystitis 2. Biliary colic Surgery/Procedure Performed: Laparoscopic cholecystectomy intraoperative cholangiography boil off machine operator cloth: Yes Physicist Cryogenics: Jose Montilla Tasks completed by application assistant: Opening & closing and Retracting Type of Anesthesia: General/Supplemental RN Documented Start/Stop Times: Operation Date: 02/25/25 12:30 Case Time Into Pre-Op 02/25/25 11:10 Out of Pre-Op 02/25/25 12:37 Anesthesia Start 02/25/25 12:42 Into Room 02/25/25 12:42 Procedure Start 02/25/25 13:06 Procedure End 02/25/25 15:33 Anesthesia End 02/25/25 15:40 Out of Room 02/25/25 15:40 Into Recovery 02/25/25 15:43 Procedure Start Time: 13:06 Procedure Stop Time: 15:33 Select all DRAINS/GRAFTS/IMPLANTS that apply: None Estimated Blood Loss: 20 Specimen collected: Yes Description of specimen(s) removed: gallbladder Description of surgery: After proper identification in the preoperative holding area the patient was brought to the operating room where she was positioned supine on the operating room table. Preoperatively SCDs were placed and antibiotics were administered. General anesthesia was then induced. Patient's abdomen was prepped and draped in usual sterile fashion. A formal timeout was conducted to confirm both patient and the procedure. Procedure was begun with a supraumbilical incision which was extended deeply down to the level of the fascia. The fascia was elevated and incised, as well as the peritoneum. A finger sweep was performed to ensure there were no underlying adhesions and a 12 mm balloon trocar was inserted. Pneumoperitoneum was established at 15 mmHg. Three additional trocars (all 5 mm) were placed in the epigastrium and in the right upper quadrant. Inspection of the peritoneum revealed no inadvertent injury to the viscera below. The gallbladder was visualized with mild inflammation. The gallbladder was also notably quite long and the infundibular segment appeared folded down onto the cystic duct. The gallbladder fundus was then grasped and elevated cephalad. Then, using careful dissection the peritoneum was opened and the structures of the hepatocystic triangle were delineated. There was some bleeding from the crossing H branch so I placed a single Hem-o-pat clip over this vessel to decrease the bleeding into the field. Once the critical view of safety was obtained, it appeared that the cystic duct was rather diminutive and there was a vessel coursing parallel to the cystic duct that appeared at risk of bleeding if the duct was fully skeletonized. Therefore I opted to obtain my cholangiogram more proximally using a Evans clamp technique which was placed across the base of the gallbladder and a catheter was inserted through the infundibular segment. Under fluoroscopy a cholangiogram was then obtained showing a standard length cystic duct flowing into a common bile duct with unobstructed antegrade flow of contrast into the duodenum. There was also retrograde flow through the common hepatic duct into the right and left hepatic ducts. Satisfied with this result, the cholangiocatheter was withdrawn and the proximal and distal cystic duct was sealed with clips and the cystic duct was completely transected. I then proceeded with additional dissection towards the cystic artery, however, the artery appeared to coursed posteriorly towards the liver and was not immediately given branches to the gallbladder. On reaching as observation I elected to continue dissecting the gallbladder clear of the gallbladder fossa with a combination of blunt dissection and electrocautery. Ultimately, I found a diminutive branch coursing to the gallbladder in the usual location of the cystic artery. This was clipped proximally and distally and divided with electrocautery. As the dissection from the gallbladder fossa continued, however, identified two the larger vessels entering the posterior aspect of the gallbladder. With this finding I chose to resort to a dome down approach and open the peritoneum circumferentially and then began taking the gallbladder off the liver distally to proximally. Ultimately I was able to isolate these vessels with some limited blunt dissection and they were individually clipped and sharply divided. The gallbladder was then removed from the gallbladder fossa with the use of electrocautery. The gallbladder fossa was then reinspected and hemostasis was confirmed. The gallbladder was placed in an Endo Catch bag and removed from the peritoneum. Given the large sizes of the gallstones and the gallbladder itself the supraumbilical incision required upsizing to facilitate passage of the specimen. Pneumoperitoneum was reestablished and the supraumbilical port was closed under laparoscopic visualization with use of a Nicho Barillas suture passer and #1 PDS. Morison's pouch was irrigated and the effluent was suctioned free of the peritoneum. Hemostasis was again confirmed. A total of 30 mL of anesthetic was injected at the port sites for postoperative pain control. The skin of each port site was then closed in subcuticular fashion using 4-0 Monocryl. Steri-Strips and bandages were applied as dressings. Patient tolerated the procedure well without any apparent complications. On emergence from their anesthetic the patient was taken to PACU for ongoing recovery. Surgical Findings: ? Evans cholangiography ? 2 prominent vessels emanating from the gallbladder fossa terminating in the gallbladder with a more diminutive traditionally?positioned cystic artery Complications Complications: No Admit VTE Documentation VTE Mechan Device Prophylaxis: SCD's
--- NOTE | 2025-02-25 15:25 | DCINST_ITS ---
Discharge Instructions Diet Discharge Diet: No restrictions Activity Discharge Activity: May Not Drive (No driving while using narcotic pain medication) and May Shower (Postoperative day 1) May shower in (days): 2 Ice area for (Minutes): 20 Lifting Restrictions: No lifting greater than 15 pounds for 2 weeks after surgery Dressing / Incision Call your doctor if your incision/area has: Continuous Slow Oozing, Increased Pain/ Swelling, Increased Redness, Foul Smelling Discharge and Swelling at the incision site Call your doctor if you observe: Fever of 101 or Higher Remove Dressing in: 2 days (Please leave Steri-Strips intact until they fall off spontaneously or are taken off at your follow-up visit) Cleanse incision/area with: Soap & Water Follow Up Care Please Follow Up With: Servando Mcknight MD When: 7-10days postop Test Results: Test results from this visit will be discussed in further detail at your follow- up appointment, if applicable. Discharge Plan Admission Primary Reason for Your Visit: Gallbladder surgery Attending Provider: Servando Mcknight Primary Care Provider: Care Physician,Sarah Primary Instructions Print Language: Macanese Discharge Orders/Prescriptions Prescriptions: New oxycodone 5 mg tablet 5 mg PO Q6H PRN (Reason: pain) 3 Days Qty: 10 0RF Continued acetaminophen [Acetaminophen Extra Strength] 500 mg tablet 1,000 mg PO Q6H PRN (Reason: fever or pain) 30 Days Qty: 60 0RF ibuprofen 600 mg tablet 600 mg PO Q6H PRN (Reason: Pain) 30 Days Qty: 60 1RF Referrals / Follow Up: Care Physician,No Primary [Primary Care Provider] - Disposition Disposition (needs filled in before D/C Order can be placed): Home, Self Care
--- NOTE | 2025-02-25 15:47 | PCM.POST.ANE ---
Anesthesia: Postop Eval I Current Vital Signs Temperature: 97.4 F Pulse Rate: 79 Blood Pressure: 104/55 Respiratory Rate: 20 Pulse Ox: 100 Oxygen Delivery Method: Non-Rebreather Oxygen Flow Rate (L/min): 8 Assessment Airway patent: Yes Spontaneous unlabored respirations: Yes Mental status: Asleep nausea: No Vomiting: No Anesthesia Complication: No Fluid Hydration Crystalloid volume administer (ml): 600 Total IV fluid infused: 600 Progress Note Anesthesia document: Postop Eval 1 completed: Yes
--- NOTE | 2025-02-25 17:54 | POSTOPAN2_ITS ---
Anesthesia Postop Eval I Sum Postop Eval Completion status Anesthesia document: Postop Eval 1 completed: Yes Anesthesia Postop Eval I Summary Anesthesia Postop Eval I Summary: Anesthesia Postop Eval I: Assessment Summary Airway patent Yes 02/25/25 15:48 CULINARY INSTRUCTOR.SHOF Spontaneous unlabored Yes 02/25/25 15:48 CULINARY INSTRUCTOR.SHOF respirations Mental status Asleep 02/25/25 15:48 CULINARY INSTRUCTOR.SHOF nausea No 02/25/25 15:48 CULINARY INSTRUCTOR.SHOF Vomiting No 02/25/25 15:48 CULINARY INSTRUCTOR.SHOF Anesthesia Postop Eval I: Fluid Summary Crystalloid volume administer 600 02/25/25 15:48 CULINARY INSTRUCTOR.SHOF (ml) Colloids volume administered ( ml) Blood Product volume administered (ml) Total IV fluid infused 600 02/25/25 15:48 CULINARY INSTRUCTOR.SHOF Anesthesia Postop Eval I: Summary Notes Anesthesia Complication No 02/25/25 15:48 CULINARY INSTRUCTOR.SHOF Anesthesia Complication Comment: Post-operative progress note Anesthesia: Postop Eval II Evaluation Mental status: Awake and Calm Pain Level: 1 nausea: No Vomiting: No Progress Note Post-operative progress note: Patient was quite sleepy after her 1 dose of morphine pain medication. She was allowed to sleep it off in PACU.
--- NOTE | 2025-02-25 17:54 | PCM.POSTANE2 ---
Anesthesia Postop Eval I Sum Postop Eval Completion status Anesthesia document: Postop Eval 1 completed: Yes Anesthesia Postop Eval I Summary Anesthesia Postop Eval I Summary: Anesthesia Postop Eval I: Assessment Summary Airway patent Yes 02/25/25 15:48 WORKER'S COMPENSATION CLAIMS EXAMINER.SHOF Spontaneous unlabored Yes 02/25/25 15:48 WORKER'S COMPENSATION CLAIMS EXAMINER.SHOF respirations Mental status Asleep 02/25/25 15:48 WORKER'S COMPENSATION CLAIMS EXAMINER.SHOF nausea No 02/25/25 15:48 WORKER'S COMPENSATION CLAIMS EXAMINER.SHOF Vomiting No 02/25/25 15:48 WORKER'S COMPENSATION CLAIMS EXAMINER.SHOF Anesthesia Postop Eval I: Fluid Summary Crystalloid volume administer 600 02/25/25 15:48 WORKER'S COMPENSATION CLAIMS EXAMINER.SHOF (ml) Colloids volume administered ( ml) Blood Product volume administered (ml) Total IV fluid infused 600 02/25/25 15:48 WORKER'S COMPENSATION CLAIMS EXAMINER.SHOF Anesthesia Postop Eval I: Summary Notes Anesthesia Complication No 02/25/25 15:48 WORKER'S COMPENSATION CLAIMS EXAMINER.SHOF Anesthesia Complication Comment: Post-operative progress note Anesthesia: Postop Eval II Evaluation Mental status: Awake and Calm Pain Level: 1 nausea: No Vomiting: No Progress Note Post-operative progress note: Patient was quite sleepy after her 1 dose of morphine pain medication. She was allowed to sleep it off in PACU.
== END 2025-02-25 19:12 | disposition home or self-care (01) ==
LOC: SDC 11:09 → AC 11:09
PROVIDERS: Referring Provider Surgery; Visit Provider Surgery
PROC: (CPT 47610; principal; 2025-02-25 12:10)
DX: K80.64 Calculus of gallbladder and bile duct with chronic cholecystitis without obstruction (principal)
CPT/HCPCS: 47563; 00790; 74300; 76000; 88304; 93005; A4216; J2405